=== PATIENT | male | born 1935 | race Caucasian/White ===

== ENCOUNTER 2017-01-02 15:18 | Inpatient (IN) | payer MEDICARE, OTHER ==
[~2017-01-02] VITALS: Ht 177.8 cm; Wt 88.1 kg
[2017-01-02] MEDS ORDERED: ONDANSETRON 4MG/2ML VIAL (J2405) IV ONE (15:45)
[2017-01-02] MEDS ORDERED: SENN8.6C PO (15:55)
[2017-01-02] MEDS ORDERED: ZOCO20TA PO (15:55)
[2017-01-02] MEDS ORDERED: ATEN25TA (15:55)
[2017-01-02] MEDS ORDERED: BISAC5TA PO ×2 (15:55→17:25)
[2017-01-02] MEDS ORDERED: SIMV20TA2 (15:55)
[2017-01-02] MEDS ORDERED: FURO40TA2 PO ×2 (15:55→17:25)
[2017-01-02] MEDS ORDERED: POTA20TA (15:55)
[2017-01-02] MEDS ORDERED: OMEP20CA3 (15:55)
[2017-01-02] MEDS ORDERED: BISA5TAB4 (15:55)
[2017-01-02] MEDS ORDERED: VITATAB11 PO ×2 (15:55→17:25)
[2017-01-02] MEDS ORDERED: ESCI10TA2 (15:55)
[2017-01-02] MEDS ORDERED: BENA10TA2 PO (15:55)
[2017-01-02] MEDS: MORPHINE 4 MG/ML 1ML SYRINGE IV PRN ×2 (16:09→19:12)
[2017-01-02 16:13] LABS: MEAN CORPUSCULAR HEMOGLOBIN 33.2 pg (27.0-33.0); MEAN CORPUSCULAR HGB CONC 33.5 g/dl (32.0-36.5); MEAN CORPUSCULAR VOLUME 99.1 fl (80.0-96.0); RED CELL DISTRIBUTION WIDTH 13.4 % (11.5-14.5); WHITE BLOOD COUNT 8.6 K/mm3 (4.0-10.0)
[2017-01-02 16:17] LABS: INR 1.25
[2017-01-02 16:38] LABS: ALBUMIN/GLOBULIN RATIO 0.88 (1.00-1.93); ALKALINE PHOSPHATASE 164 U/L (45-117); ALT/SGPT 25 U/L (12-78); ANION GAP 10 MEQ/L (8-16); AST/SGOT 37 U/L (15-37); BILIRUBIN,DIRECT 0.5 MG/DL (0.0-0.2); BILIRUBIN,TOTAL 1.1 MG/DL (0.2-1.0); BLOOD UREA NITROGEN 21 MG/DL (7-18); CALCIUM LEVEL 8.3 MG/DL (8.8-10.2); CARBON DIOXIDE LEVEL 28 MEQ/L (21-32); CHLORIDE LEVEL 104 MEQ/L (98-107); CREATININE FOR GFR 0.81 MG/DL (0.70-1.30); GLOMERULAR FILTRATION RATE > 60.0 (>35); GLUCOSE, FASTING 134 MG/DL (83-110); POTASSIUM SERUM 3.8 MEQ/L (3.5-5.1); SODIUM LEVEL 142 MEQ/L (136-145); TOTAL PROTEIN 6.4 GM/DL (6.4-8.2)
[2017-01-02] MEDS ORDERED: ISOVUE-370 76% 100ML VIAL (Q9967) As Ordered ONE (16:51)
--- NOTE | 2017-01-02 17:02 | REP ---
CHEST, ONE VIEW: REASON: Chest pain after fall. COMPARISON: 01/04/2015. The technique utilized in obtaining the radiograph has magnified the cardiac silhouette and accentuated the interstitial markings. A rib fracture can not be excluded particularly on the right due to multiple superimposed right mid and lower ribs. The lung batres are unchanged showing chronic fibrotic changes. The cardiomediastinal silhouette is unchanged. There is cardiomegaly and left atrial enlargement status quo. No acute patchy parenchymal opacities or pleural effusions seem to have developed on this limited supine AP chest. IMPRESSION: Exam limitations as described above. No evidence of acute cardiopulmonary disease. Right lower rib fracture assessment can not be made. Signed by José Rodney DO 01/03/2017 10:52 A
--- NOTE | 2017-01-02 17:04 | REP ---
RIGHT HIP AND PELVIS: REASON: Fall. AP pelvis and two view right hip. The bones are demineralized. There is a comminuted right superior ramus fracture and a comminuted right inferior ramus fracture. The right femur is not fractured. There are bilateral asymmetric hip joint degenerative changes. IMPRESSION: 1. Right superior and inferior pubic rami fractures which are comminuted. 2. Other findings of chronic changes as described above. TWO VIEWS RIGHT HIP: The previously described comminuted right superior and inferior pubic rami fracture is noted again. Chronic right hip joint changes again noted. No additional findings. Signed by José Rodney DO 01/03/2017 10:52 A
[2017-01-02] MEDS ORDERED: LEXA1TAB PO (17:25)
[2017-01-02] MEDS ORDERED: SENN8.6T10 PO (17:25)
[2017-01-02] MEDS ORDERED: OMEP20CA3 PO (17:25)
[2017-01-02] MEDS ORDERED: BIMA01SOL OU (17:25)
[2017-01-02] MEDS ORDERED: SIMV20TA2 PO (17:25)
[2017-01-02] MEDS ORDERED: REST0.05 OU (17:25)
[2017-01-02] MEDS ORDERED: ATEN25TA PO (17:25)
[2017-01-02] MEDS ORDERED: POTA20TA PO (17:25)
--- NOTE | 2017-01-02 17:35 | REP ---
CT of the pelvis for pelvic fracture: Axial images are acquired helical scanning in the reformatted sagittal coronal projections. This is performed without IV contrast. There are no comparison studies. There is marked demineralization. There is a comminuted fracture of the right ischium. There is no hip fracture on the right on the left. No sacral fracture. No fracture of the right and left iliac wings. There is grade II L5 spondylolisthesis. This is likely degenerative. There is no spondylolysis. There is L5 S1 degenerative disc disease. There is edema of the right internal, external obturator muscles. There is no free fluid in the pelvis. The bladder is unremarkable. Impression: Comminuted fracture of the right ischium. Profound demineralization. There is grade II L5 spondylolisthesis Signed by Ezekiel Wharton MD 01/02/2017 05:27 P
--- NOTE | 2017-01-02 18:46 | HPEPDOC ---
General Date of Admission Jan 02, 2017 at 17:29 Chief Complaint The patient is a 81-year-old male admitted with a reason for visit of Fall; Pelvic Fx. Source: Patient Exam Limitations: No limitations Timing/Duration: 4-6 hours Severity: Moderate History of Present Illness Mr Mathis is an 81-year-old male with past medical history of atrial fibrillation , malignant melanoma of the left forearm, aortic valve sclerosis, pulmonary hypertension, urinary retention, stroke 8 years prior who presents after he had a mechanical fall at his house this morning. The patient states that he was walking from his bathroom and reached to grab something off of a shelf and lost his balance and fell. The patient states that he fell onto his right hip. He denies associated chest pain, palpitations, shortness of breath, feelings of dizziness prior to the event. Patient states that he does not normally fall at home. Patient denies fever, chills or muscle aches recently. He states that he has been feeling well and just "" got careless this morning"". He denies changes in bowel or urinary habits to include pain with urination defecation or blood in urine or stool. Patient states that once he fell he was unable to get up due to right hip pain and instead" "scooted himself "" to the living room where he phoned his to come help him. The patient states that he does not have pain when laying down in bed currently but does feel pain if he tries to move in the bed. Home Medications Scheduled (Restasis) 0.05 % Emu, 1 DROP OU BID, (Reported) Atenolol (Atenolol) 25 Mg Tab, 12.5 MG PO DAILY, (Reported) B1/B2/B3/B5/B6 (Vitamin B Complex) 1 Tab Tab, 1 TAB PO DAILY, (Reported) Bimatoprost (Lumigan) 50 Drop/2.5 Ml Veronica, 1 DROP OU QHS, (Reported) Bisacodyl (Bisacodyl EC) 5 Mg Tab, 10 MG PO DAILY, (Reported) Escitalopram Oxalate (Lexapro) 10 Mg Tab, 10 MG PO DAILY, (Reported) Omeprazole (Omeprazole) 20 Mg Cap, 20 MG PO DAILY, (Reported) Potassium Chloride (Klor-Con M20) 20 Meq Tabcr, 40 MEQ PO DAILY, (Reported) Senna (Senna Lax) 8.6 Mg Tab, 2 TAB PO QHS, (Reported) Simvastatin (Simvastatin) 20 Mg Tab, 20 MG PO QHS, (Reported) Scheduled PRN Furosemide (Furosemide) 40 Mg Tab, 40 MG PO DAILY PRN for BP > 110, (Reported) Allergies Coded Allergies: No Known Allergies (Verified , 05/11/04) Past Medical History Medical History Atrial fibrillation Malignant melanoma left forearm Aortic valve sclerosis Mitral annular calcification Pulmonary hypertension Urinary retention History of stroke 8 years prior TIA 20 years prior Family History Mother had bladder cancer and father had stroke, many people in the family have heart disease Social History * Smoker: former Smoker (patient states that he quit smoking in the 1980s, prior to this he was smoking less than half a pack a day since his teenage years ) Alcohol: Denies Drugs: denies Psychosocial History: No pertinent psych hx retired, lives at home with his Review of Symptoms Constitutional: Denies: Chills, Fever Eyes: Denies: Pain, Vision change, Conjunctivae inflammation, Eyelid inflammation, Redness ENT: Denies: Head Aches Skin: Denies: Rash, Lesions Pulmonary: Denies: Dyspnea Cardiovascular: Denies: Chest Pain, Palpitations Gastrointestinal: Denies: Nausea, Vomiting, Abdominal Pain, Diarrhea, Constipation Hematologic: Denies: Bruising Musculoskeletal: Reports: Other Symptoms (patient states that he has right hip/ upper leg and posterior knee pain) Neurological: Denies: Weakness Psych: Reports: Mood Normal Physical Examination General Exam: Positive: Alert, Cooperative, Mild Distress Eye Exam: Positive: Conjunctiva & lids normal, EOMI, Negative: Sclera icteric, Ptosis ENT Exam: Positive: Atraumatic, Mucous membr. moist/pink, Nares Patent Neck Exam: Positive: Supple Chest Exam: Positive: Clear to auscultation, Normal air movement, Negative: Rales, Rhonchi, Wheezing Heart Exam: Positive: Rate Normal, Normal S1, Normal S2, Murmurs, Negative: Tachycardic, Bradycardic, Gallops Abdomen Exam: Positive: Normal bowel sounds, Soft, Negative: BS Hyperactive, BS Hypoactive, Tenderness, Hepatospenomegaly Extremity Exam: Positive: Edema (chronic pitting b/l LE edema, pt states it is unchanged ), Negative: Clubbing, Cyanosis Skin Exam: Positive: Nl turgor and temperature Vital Signs Vital Signs Date Time Temp Pulse Resp B/P (MAP) Pulse Ox O2 Delivery O2 Flow Rate FiO2 01/02/17 17:38 114 18 113/73 (86) 94 Room Air 01/02/17 15:34 99.4 Laboratory Data Labs 24H Laboratory Tests 2 01/02/17 15:59: Prothrombin Time 15.8H, Prothromb Time International Ratio 1.25, Anion Gap 10, Glomerular Filtration Rate > 60.0, Calcium Level 8.3L, Aspartate Amino Transf ( AST/SGOT) 37, Alanine Aminotransferase (ALT/SGPT) 25, Alkaline Phosphatase 164H , Total Bilirubin 1.1H, Direct Bilirubin 0.5H, Total Protein 6.4, Albumin 3.0L, Albumin/Globulin Ratio 0.88L CBC/BMP Laboratory Tests 01/02/17 15:59 Red Blood Count 3.71 L, Mean Corpuscular Volume 99.1 H, Mean Corpuscular Hemoglobin 33.2 H, Mean Corpuscular Hemoglobin Concent 33.5, Red Cell Distribution Width 13.4 Problems (1) Pelvic fracture Status: Acute Response to Treatment: Stable Problem Text: Pelvic CT done in emergency department demonstrated commuted fracture of the right ischium, profound demineralization, and grade 2 L5 spondylolisthesis. Will control patient's pain Will consult orthopedic surgery to see the patient in the morning will require cardiac clearance if sx is decided upon (2) Hypertension Status: Chronic Response to Treatment: Stable Problem Text: 145/69 Continue to monitor and continue home medications w/ hold parameters (3) Anemia Status: Chronic Response to Treatment: Stable Problem Text: 12.3 and 36.7 on presentation will continue to monitor (4) GERD (gastroesophageal reflux disease) Status: Chronic Response to Treatment: Stable Problem Text: continue home medications (5) Constipation Status: Chronic Response to Treatment: Stable Problem Text: continue home medications (6) Dyslipidemia Status: Chronic Response to Treatment: Stable Problem Text: continue home medications (7) Depression Status: Chronic Response to Treatment: Stable Problem Text: continue home medications (8) DVT prophylaxis Status: Acute Response to Treatment: Stable Problem Text: SCD TEDS Plan / VTE VTE Prophylaxis Ordered?: Yes GME ATTESTATION GME ATTESTATION My preceptor for this patient encounter was physically present in the building during the encounter and was fully available. As needed, all aspects of the patient interview, examination, medical decision making process, and medical care plan development were reviewed and approved by the preceptor. Preceptor is aware and concurs with the plan as stated in the body of this note and will attest to such by his/her cosignature. RINA ARRIAGA DO Jan 02, 2017 18:46
[2017-01-02 19:00] VITALS: BP 128/86
[2017-01-02] MEDS: NS 1,000 ML IV SCH (19:11)
[2017-01-02] MEDS: SIMVASTATIN 20 MG TAB PO SCH (20:38)
[2017-01-02] MEDS: SENNA 8.6 MG TAB (SENOKOT) PO SCH (20:41)
[2017-01-02 22:00] VITALS: BP 106/70
[2017-01-03] MEDS: NS 1,000 ML IV SCH ×3 (01:10→19:51)
[2017-01-03 06:00] VITALS: BP 98/60
[2017-01-03 07:00] LABS: BASO # 0.1 K/mm3 (0.0-0.2); BASO % 1.2 % (0.0-1.0); EOS # 0.1 K/mm3 (0.0-0.50); EOS % 2.2 % (0.0-3.0); LARGE UNSTAINED CELL # 0.1 K/mm3 (0.0-0.4); LARGE UNSTAINED CELL % 1.6 % (0.0-4.0); LYMPH # 0.8 K/mm3 (1.5-4.5); LYMPH % 12.6 % (24.0-44.0); MEAN CORPUSCULAR HEMOGLOBIN 32.7 pg (27.0-33.0); MEAN CORPUSCULAR HGB CONC 33.4 g/dl (32.0-36.5); MONO # 0.5 K/mm3 (0.0-0.8); NEUTROPHILS # 4.2 K/mm3 (1.8-7.7); NEUTROPHILS % 74.5 % (36.0-66.0); PLATELET COUNT, AUTOMATED 130 k/mm3 (150-450); RED CELL DISTRIBUTION WIDTH 13.4 % (11.5-14.5); WHITE BLOOD COUNT 5.7 K/mm3 (4.0-10.0)
[2017-01-03 07:24] LABS: ANION GAP 9 MEQ/L (8-16); BLOOD UREA NITROGEN 24 MG/DL (7-18); CALCIUM LEVEL 8.2 MG/DL (8.8-10.2); CARBON DIOXIDE LEVEL 27 MEQ/L (21-32); CHLORIDE LEVEL 107 MEQ/L (98-107); CREATININE FOR GFR 0.74 MG/DL (0.70-1.30); GLOMERULAR FILTRATION RATE > 60.0 (>35); GLUCOSE, FASTING 97 MG/DL (83-110); POTASSIUM SERUM 4.2 MEQ/L (3.5-5.1); SODIUM LEVEL 143 MEQ/L (136-145)
[2017-01-03] MEDS: BISACODYL 5 MG TAB PO SCH (09:00)
[2017-01-03] MEDS: OMEPRAZOLE 20 MG CAP PO SCH (09:57)
[2017-01-03] MEDS: ATENOLOL 25 MG TAB PO SCH (09:57)
[2017-01-03] MEDS: ESCITALOPRAM OXALATE 10 MG TAB (LEXAPRO) PO SCH (09:57)
[2017-01-03] MEDS: FUROSEMIDE 40 MG TAB PO SCH (09:58)
[2017-01-03] MEDS: PERCOCET 5MG/325MG TAB PO PRN ×2 (09:59→18:07)
--- NOTE | 2017-01-03 10:47 | CR ---
DATE OF CONSULTATION: 01/03/2017 CHIEF COMPLAINT: Right pelvic pain. HISTORY OF PRESENT ILLNESS: Mr. Mathis is an 81-year-old gentleman admitted yesterday. He has a history of atrial fibrillation, malignant melanoma on his forearm, aortic valve sclerosis and pulmonary hypertension, urinary retention and other issues, previous history of stroke. He was standing, he was not paying attention, did not have lightheadedness or loss of conscious, but slipped and fell and landed on his right buttocks. He was unable to ambulate after that. The injury happened at home. He previously has lived with his independently and he was brought to the emergency room (ER) for further evaluation after his helped him. At rest, he does not have much pain but any movement produces pain and trying to walk produces pain. HOME MEDICATIONS: Include: Restasis, atenolol, Lumigan, bisacodyl, Lexapro, omeprazole, potassium, Senna, simvastatin, and Lasix. PAST MEDICAL HISTORY: Includes: 1. Atrial fibrillation. 2. Melanoma. 3. Aortic valve sclerosis. 4. Mitral annular calcification. 5. Pulmonary hypertension. 6. Urinary retention. 7. Chronic peripheral edema. 8. Cerebrovascular injury. 9. Transient ischemic attacks. FAMILY HISTORY: Not contributory. SOCIAL HISTORY: Does not currently smoke but quit in the 1980s. Does not drink or smoke. He is not complaining of depression. REVIEW OF SYSTEMS: He is not complaining of headache, nauseousness, shortness of breath, abdominal pain. No new numbness or tingling. He does not report any significant change in the swelling today. He is not complaining of stomach issues or bleeding issues or psychological issues. IMAGING STUDIES: I reviewed plain films which reveal a superior and inferior pubic ramus fracture on the right side. No hip fracture. I reviewed a CT scan of the abdomen and pelvis and that reveals comminuted superior and inferior pubic ramus/ischial fractures which are significantly comminuted and also reveals a fracture which is nondisplaced of the sacrum on the right side. In this respect, I disagree with the radiologist's interpretation. There is clearly a right sacral fracture. CLINICAL EXAMINATION: He is alert, oriented, and cooperative. Mood and affect appropriate. He seems to be comfortable in bed. He appreciates light touch peripherally and he has at least moderate to severe edema on the right foot and more moderate edema on the left foot. Calves are soft. Extremities appear to be sensate. IMPRESSION: Superior and inferior pubic ramus fractures on the right, sacral fracture on the right, other comorbidities in an 81-year-old gentleman. RECOMMENDATIONS: I met with the gentleman and his family and we spent approximately 20 minutes together, greater than 50% of which was [id number] time. I do not recommend a surgical intervention for his issue. However, because he has fractures of the anterior pelvis as well as a nondisplaced sacral fracture, in my opinion, it is likely that his rehabilitation progress will be slow/relatively prolonged. I would anticipate a healing period over a period of 10-12 weeks in somebody his vintage with his medical comorbidities. He may be mobilized by physical therapy but our goals should be limited, such as bed to chair and bed to bathroom. I think he is going to have significant pain which may improve over the next couple of weeks as he begins to heal and again, we do not expect rapid progress in my opinion. This was explained to the patient as well as his who agree with our recommendations and plan. This patient could followup with me in the office within the next couple of weeks if he is discharge. Additional considerations would be for subacute rehabilitation if the patient is not able to be made safe for independent living. For further details, please refer to the medical record.
[2017-01-03 13:21] VITALS: O2SAT 86; O2SAT 91
[2017-01-03 14:00] VITALS: BP 101/59
--- NOTE | 2017-01-03 14:22 | IPN ---
DATE: 01/03/2017 81-year-old gentleman seen at the bedside, resting comfortably. Pleasant to talk to. No chest pain, shortness of breath, abdominal pain. He feels that his hip pain appears to be adequately controlled. OBJECTIVE: Temperature is 98.4, pulse 100, respiratory rate is 16, blood pressure 128/60, SpO2 is 93% on 2 liters. GENERAL: The patient appears to be in no acute distress. Alert and oriented. HEENT: Unremarkable. LUNGS: Clear. HEART: Regular rate and rhythm. ABDOMEN: Soft. EXTREMITIES: No edema. No calf tenderness. LABORATORY DATA: White count 5.7, hemoglobin 11.5, platelets are 130,000. Sodium is 143, potassium 4.2, chloride 107, bicarb 27, anion gap 9, BUN 24, creatinine 0.74, glucose is 97. ASSESSMENT/PLAN: 1. Acute pelvic fracture involving the right ischium. He will need some ongoing physical therapy and perhaps subacute rehab. Will continue with pain medications as needed. 2. Hypertension. Stable. 3. Anemia of chronic disease. Will continue to follow his hemoglobin and hematocrit. 4. Gastroesophageal reflux disease (GERD). Stable. 5. Chronic constipation. Will make sure that he has a bowel regimen in place. 6. Hyperlipidemia. Continue Lexapro. 7. History of atrial fibrillation. He is rate controlled. 8. History of pulmonary hypertension. Continue on Lasix. 9. Prior history of stroke and transient ischemic attack (TIA). No ongoing deficits. DISPOSITION: I am concerned that the patient may have some unstable gait issues. His fall resulted from a mechanical fall. He denies any syncope or having any blackout spells. At any rate, I would like for physical therapy and occupational therapy to continue to follow him and patient and family services (PFS) is involved with possible subacute rehab.
[2017-01-03] MEDS: SIMVASTATIN 20 MG TAB PO SCH (19:50)
[2017-01-03] MEDS: SENNA 8.6 MG TAB (SENOKOT) PO SCH (19:50)
[2017-01-03 22:00] VITALS: BP 119/70
[2017-01-04 06:00] VITALS: BP 106/65
[2017-01-04] MEDS: HEPARIN SOD (PORCINE) 5000 UNITS/ML VIAL SQ SCH ×3 (06:00→21:20)
[2017-01-04 07:21] LABS: BASO # 0.1 K/mm3 (0.0-0.2); BASO % 0.5 % (0.0-1.0); EOS # 0.1 K/mm3 (0.0-0.50); LARGE UNSTAINED CELL # 0.2 K/mm3 (0.0-0.4); LARGE UNSTAINED CELL % 1.5 % (0.0-4.0); LYMPH # 0.9 K/mm3 (1.5-4.5); LYMPH % 7.2 % (24.0-44.0); MEAN CORPUSCULAR HEMOGLOBIN 33.9 pg (27.0-33.0); MEAN CORPUSCULAR HGB CONC 33.9 g/dl (32.0-36.5); MONO # 0.8 K/mm3 (0.0-0.8); MONO % 6.1 % (0.0-5.0); NEUTROPHILS # 10.5 K/mm3 (1.8-7.7); NEUTROPHILS % 83.6 % (36.0-66.0); PLATELET COUNT, AUTOMATED 118 k/mm3 (150-450); RED CELL DISTRIBUTION WIDTH 13.6 % (11.5-14.5); WHITE BLOOD COUNT 12.5 K/mm3 (4.0-10.0)
[2017-01-04 07:33] LABS: ANION GAP 8 MEQ/L (8-16); BLOOD UREA NITROGEN 34 MG/DL (7-18); CALCIUM LEVEL 8.1 MG/DL (8.8-10.2); CARBON DIOXIDE LEVEL 26 MEQ/L (21-32); CHLORIDE LEVEL 108 MEQ/L (98-107); CREATININE FOR GFR 1.04 MG/DL (0.70-1.30); GLOMERULAR FILTRATION RATE > 60.0 (>35); GLUCOSE, FASTING 103 MG/DL (83-110); POTASSIUM SERUM 4.3 MEQ/L (3.5-5.1); SODIUM LEVEL 142 MEQ/L (136-145)
--- NOTE | 2017-01-04 08:42 | IPN ---
DATE: 01/04/2017 This is an 81-year-old gentleman seen at bedside. He is resting comfortably. However, he does have quite a bit of pain when he tries to move in the bed with his right hip pain. He denies shortness of breath, productive sputum, cough or hemoptysis. No difficulty with his meals. Bowel movements are regular. OBJECTIVE: Temperature is 98.8, pulse 63, respiratory rate 11, blood pressure 106/65, SPO2 is 97% on two liters. GENERAL: The patient appears to be in no acute distress, alert, oriented, pleasant. HEENT: Unremarkable. LUNGS: Clear. HEART: Regular rate and rhythm. ABDOMEN: Soft. EXTREMITIES: No edema. No calf tenderness. No motor or sensory deficits distally. LABORATORY DATA: White count is 12.5, hemoglobin 10.9, platelets are 118,000. Sodium 142, potassium 4.3, chloride 108, bicarbonate 26, anion gap 8, BUN 34, creatinine 1.04, glucose 103. ASSESSMENT AND PLAN: 1. Acute pelvic fracture involving the ischium. Appreciate orthopedics' input. We will continue with physical therapy. He is likely going to need subacute rehabilitation and possible placement. Continue with pain medications as outlined previously. 2. Hypertension, stable. We will continue to follow. 3. Anemia of chronic disease. This appears to be stable. There is slight drop in his hemoglobin and hematocrit today. This is possibly hemodilution. We will go ahead and discontinue his IV fluids that have been running since admission. 4. Gastroesophageal reflux disease (GERD), stable. 5. Chronic constipation. Continue with bowel regimen. 6. Hyperlipidemia. Continue Lipitor. 7. History of atrial fibrillation. This appears to be paroxysmal. He is rate controlled and apparently, he is not anticoagulated. I will defer this to his primary care provider, Dr. Mann. 8. Depression. Continue on Lexapro. 9. History of pulmonary hypertension. Continue on Lasix. 10. Prior history of stroke, transient ischemic attacks. No deficits. 11. Deep vein thrombosis (DVT) prophylaxis. We started him on subcutaneous heparin.
[2017-01-04 08:45] VITALS: BP 141/72
[2017-01-04] MEDS: OMEPRAZOLE 20 MG CAP PO SCH (08:51)
[2017-01-04] MEDS: ESCITALOPRAM OXALATE 10 MG TAB (LEXAPRO) PO SCH (08:51)
[2017-01-04] MEDS: BISACODYL 5 MG TAB PO SCH (08:51)
[2017-01-04] MEDS: ATENOLOL 25 MG TAB PO SCH (08:52)
[2017-01-04] MEDS: FUROSEMIDE 40 MG TAB PO SCH (08:53)
[2017-01-04] MEDS: PERCOCET 5MG/325MG TAB PO PRN ×2 (12:57→18:41)
[2017-01-04 14:00] VITALS: BP 102/57
[2017-01-04] MEDS: SIMVASTATIN 20 MG TAB PO SCH (21:20)
[2017-01-04] MEDS: SENNA 8.6 MG TAB (SENOKOT) PO SCH (21:20)
[2017-01-04 22:00] VITALS: BP 119/58
[2017-01-05 06:00] VITALS: BP 109/59
[2017-01-05] MEDS: HEPARIN SOD (PORCINE) 5000 UNITS/ML VIAL SQ SCH ×3 (06:00→21:30)
[2017-01-05 06:41] LABS: BASO # 0.1 K/mm3 (0.0-0.2); BASO % 0.8 % (0.0-1.0); EOS # 0.4 K/mm3 (0.0-0.50); EOS % 4.4 % (0.0-3.0); LARGE UNSTAINED CELL # 0.2 K/mm3 (0.0-0.4); LARGE UNSTAINED CELL % 2.9 % (0.0-4.0); LYMPH # 0.9 K/mm3 (1.5-4.5); LYMPH % 11.3 % (24.0-44.0); MEAN CORPUSCULAR HEMOGLOBIN 33.2 pg (27.0-33.0); MEAN CORPUSCULAR HGB CONC 33.6 g/dl (32.0-36.5); MONO # 0.8 K/mm3 (0.0-0.8); MONO % 10.2 % (0.0-5.0); NEUTROPHILS # 5.7 K/mm3 (1.8-7.7); NEUTROPHILS % 70.5 % (36.0-66.0); PLATELET COUNT, AUTOMATED 122 k/mm3 (150-450); RED CELL DISTRIBUTION WIDTH 13.6 % (11.5-14.5); WHITE BLOOD COUNT 8.2 K/mm3 (4.0-10.0)
[2017-01-05 06:48] LABS: ANION GAP 6 MEQ/L (8-16); BLOOD UREA NITROGEN 45 MG/DL (7-18); CALCIUM LEVEL 8.4 MG/DL (8.8-10.2); CARBON DIOXIDE LEVEL 27 MEQ/L (21-32); CHLORIDE LEVEL 107 MEQ/L (98-107); CREATININE FOR GFR 0.71 MG/DL (0.70-1.30); GLOMERULAR FILTRATION RATE > 60.0 (>35); GLUCOSE, FASTING 102 MG/DL (83-110); SODIUM LEVEL 140 MEQ/L (136-145)
[2017-01-05] MEDS ORDERED: FLEET ENEMA PR PRN (07:30)
[2017-01-05] MEDS ORDERED: MOM 30ML SUSPENSION UDC PO PRN (07:30)
[2017-01-05 09:30] VITALS: BP 118/72
[2017-01-05] MEDS: OMEPRAZOLE 20 MG CAP PO SCH (11:01)
[2017-01-05] MEDS: ESCITALOPRAM OXALATE 10 MG TAB (LEXAPRO) PO SCH (11:01)
[2017-01-05] MEDS: FUROSEMIDE 40 MG TAB PO SCH (11:01)
[2017-01-05] MEDS: BISACODYL 5 MG TAB PO SCH (11:01)
[2017-01-05] MEDS: MIRALAX *UNIT DOSE* 17GM PACKET PO SCH (11:01)
[2017-01-05] MEDS: ATENOLOL 25 MG TAB PO SCH (11:01)
[2017-01-05] MEDS: PERCOCET 5MG/325MG TAB PO PRN (12:00)
[2017-01-05 14:00] VITALS: BP 104/67
--- NOTE | 2017-01-05 15:06 | IPN ---
DATE: 01/05/2017 81-year-old gentleman seen at bedside resting comfortably. States he does have quite a bit of hip and right buttock pain when he tries to move. He is trying to continue to participate with physical therapy, but feels that his progresses is toby slow currently. He denies chest pain, nausea or vomiting. He is tolerating meals. No abdominal pain. Bowel movements regular. No difficulty with voiding. OBJECTIVE: Temperature 99.8, pulse 103, respiratory rate is 20, blood pressure (BP) 109/59, SPO2 is 92% on 2 liters. General: The patient appears to be in no acute distress. He is alert and oriented, pleasant. I did notice he has not had a bowel movement for the last few days. We will adjust his bowel regimen. HEENT: Unremarkable. Lungs: Clear. Heart: Regular rate and rhythm. Abdomen: Soft. Extremities: No edema. No calf tenderness. LABORATORY DATA: White count is 8.2, hemoglobin 10.6, platelets are 122,000. Sodium 140, potassium 4.0, chloride 107, bicarb 27, anion gap 6, BUN is 45, creatinine 0.71, glucose 102. ASSESSMENT/PLAN: 1. Acute pelvic fracture involving the right ischium. Appreciate orthopedic's input. He continues to try to participate with physical therapy. Continue pain medication. Will adjust his bowel regimen as well. He is likely to need subacute rehabilitation and possible placement. The goal will be to make him fdc level today and Patient and Family Services (PFS) is back on Saturday and will further try to delineate placement issues. 2. Constipation. Will adjust his bowel regimen. 3. Hypertension, stable. Will continue to follow with hold parameters on his atenolol. 4. Tachycardia with history of atrial fibrillation. Appears to be paroxysmal in nature. He is barely rapid ventricular response. I am not going to make any further adjustments in his atenolol since his blood pressure has been nominal and his heart rate at rest does typically dip down to the 70s. Will continue to follow while he is here. He is not currently on any anticoagulation therapy. I do wonder if he is a fall risk and that is the reason why Dr. Mann does not place him on this. Will defer this to Dr. Mann at followup. 5. Depression. Continue on Lexapro. 6. History of pulmonary hypertension. Continue Lasix. 7. Prior history of stroke and transient ischemic attacks (TIAs). No current deficits. 8. Gastroesophageal reflux disease (GERD), stable. 9. Deep vein thrombosis (DVT) prophylaxis, on subcutaneous heparin. DISPOSITION: As outlined above. The patient will be made fdc today. PFS is on board as well as physical therapy (PT). There is a high likeliness he will need to be placed for subacute rehabilitation.
[2017-01-05] MEDS: SENNA 8.6 MG TAB (SENOKOT) PO SCH (21:27)
[2017-01-05] MEDS: SIMVASTATIN 20 MG TAB PO SCH (21:27)
[2017-01-05 22:00] VITALS: BP 116/67
[2017-01-06] MEDS: HEPARIN SOD (PORCINE) 5000 UNITS/ML VIAL SQ SCH ×3 (05:47→22:00)
[2017-01-06 06:00] VITALS: BP 104/63
[2017-01-06] MEDS: MIRALAX *UNIT DOSE* 17GM PACKET PO SCH (09:30)
[2017-01-06] MEDS: BISACODYL 5 MG TAB PO SCH (09:31)
[2017-01-06] MEDS: ESCITALOPRAM OXALATE 10 MG TAB (LEXAPRO) PO SCH (09:31)
[2017-01-06] MEDS: OMEPRAZOLE 20 MG CAP PO SCH (09:31)
[2017-01-06] MEDS: FUROSEMIDE 40 MG TAB PO SCH (09:32)
[2017-01-06] MEDS: ATENOLOL 25 MG TAB PO SCH (09:32)
[2017-01-06 12:23] VITALS: O2SAT 94
[2017-01-06 14:00] VITALS: BP 118/64
[2017-01-06 18:53] VITALS: O2SAT 94
[2017-01-06 21:55] VITALS: O2SAT 92
[2017-01-06 22:00] VITALS: BP 141/87
[2017-01-06] MEDS: SIMVASTATIN 20 MG TAB PO SCH (22:35)
[2017-01-06] MEDS: SENNA 8.6 MG TAB (SENOKOT) PO SCH (22:35)
[2017-01-06] MEDS: PERCOCET 5MG/325MG TAB PO PRN (22:40)
[2017-01-07 06:00] VITALS: BP 151/92
[2017-01-07] MEDS: HEPARIN SOD (PORCINE) 5000 UNITS/ML VIAL SQ SCH ×3 (06:46→20:35)
[2017-01-07 07:19] LABS: MEAN CORPUSCULAR HEMOGLOBIN 32.6 pg (27.0-33.0); MEAN CORPUSCULAR HGB CONC 33.2 g/dl (32.0-36.5); MEAN CORPUSCULAR VOLUME 98.2 fl (80.0-96.0); RED CELL DISTRIBUTION WIDTH 13.9 % (11.5-14.5); WHITE BLOOD COUNT 6.4 K/mm3 (4.0-10.0)
[2017-01-07 07:45] LABS: ANION GAP 4 MEQ/L (8-16); BLOOD UREA NITROGEN 36 MG/DL (7-18); CALCIUM LEVEL 7.9 MG/DL (8.8-10.2); CARBON DIOXIDE LEVEL 31 MEQ/L (21-32); CHLORIDE LEVEL 108 MEQ/L (98-107); CREATININE FOR GFR 0.53 MG/DL (0.70-1.30); GLOMERULAR FILTRATION RATE > 60.0 (>35); GLUCOSE, FASTING 103 MG/DL (83-110); POTASSIUM SERUM 3.9 MEQ/L (3.5-5.1); SODIUM LEVEL 143 MEQ/L (136-145)
[2017-01-07] MEDS: MIRALAX *UNIT DOSE* 17GM PACKET PO SCH (09:00)
[2017-01-07] MEDS: ESCITALOPRAM OXALATE 10 MG TAB (LEXAPRO) PO SCH (10:24)
[2017-01-07] MEDS: PERCOCET 5MG/325MG TAB PO PRN ×2 (10:24→20:37)
[2017-01-07] MEDS: FUROSEMIDE 40 MG TAB PO SCH (10:24)
[2017-01-07] MEDS: OMEPRAZOLE 20 MG CAP PO SCH (10:24)
[2017-01-07] MEDS: BISACODYL 5 MG TAB PO SCH (10:25)
[2017-01-07] MEDS: ATENOLOL 25 MG TAB PO SCH (10:25)
[2017-01-07 14:00] VITALS: BP 123/76
[2017-01-07] MEDS: SENNA 8.6 MG TAB (SENOKOT) PO SCH (20:35)
[2017-01-07] MEDS: SIMVASTATIN 20 MG TAB PO SCH (20:35)
[2017-01-07 22:00] VITALS: BP 131/70
[2017-01-08] MEDS: HEPARIN SOD (PORCINE) 5000 UNITS/ML VIAL SQ SCH ×3 (05:20→20:07)
[2017-01-08 06:00] VITALS: BP 110/71
[2017-01-08 08:51] VITALS: BP 108/63
[2017-01-08 09:45] VITALS: BP 138/75
[2017-01-08] MEDS: MIRALAX *UNIT DOSE* 17GM PACKET PO SCH (10:02)
[2017-01-08] MEDS: BISACODYL 5 MG TAB PO SCH (10:03)
[2017-01-08] MEDS: FUROSEMIDE 40 MG TAB PO SCH (10:03)
[2017-01-08] MEDS: ESCITALOPRAM OXALATE 10 MG TAB (LEXAPRO) PO SCH (10:04)
[2017-01-08] MEDS: ATENOLOL 25 MG TAB PO SCH (10:07)
[2017-01-08] MEDS: OMEPRAZOLE 20 MG CAP PO SCH (10:07)
[2017-01-08] MEDS ORDERED: ACETAMINOPHEN TAB 650MG DOSE (2X325MG) PO PRN (11:00)
[2017-01-08 13:47] LABS: ABG BASE EXCESS 4.2 (-2.0-2.0); ABG HCO3 27.9 MEQ/L (22.0-26.0); ABG PARTIAL PRESSURE CO2 38.5 mmHg (35.0-45.0); ABG PARTIAL PRESSURE O2 78.7 mmHg (75.0-100.0); ABG STANDARD HCO3 28.2 MEQ/L (22.0-26.0); ABG TOTAL CO2 29.1 MEQ/L (23.0-31.0); ABG pH (ARTERIAL) 7.478 UNITS (7.350-7.450)
[2017-01-08 14:30] VITALS: BP 95/58
[2017-01-08] MEDS ORDERED: NS 500 ML IV ONE (15:30)
[2017-01-08 16:30] VITALS: BP 95/60
--- NOTE | 2017-01-08 17:04 | REP ---
CT CHEST WITHOUT CONTRAST: REASON: Pyrexia and dyspnea. COMPARISON EXAMINATION: 06/07/2015 and 01/07/2015. The lack of intravenous contrast decreased the sensitivity of the exam. The mediastinum and pulmonary bhaskar have not changed significantly. There is global cardiomegaly and evidence of pulmonary arterial enlargement consistent with cor pulmonale/pulmonary hypertension. There are no pleural or pericardial effusions. The imaged upper abdomen again shows a micronodular service to the liver and an atopic gallbladder. 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 Evaluation of the osseous structures shows a healing 7th rib fracture on the right anteriorly and representing a change from prior exam. Evaluation of the lung batres again shows marked right hemithoracic volume loss with marked elevation of the marked diaphragmatic surface of the right lung status quo. Evaluation of the lung batres shows scattered asystemic densities and patchy opacities particularly in the right lower lobe with air bronchograms. The air bronchograms have improved from the prior exam as has the large right lower lobe patch opacity although there is an increased opacity with air bronchograms in the posterobasal segment of the right lower lobe compared to the prior exam. Scattered nodular densities are seen throughout the lung batres status quo. IMPRESSION: 1. New patchy right lobe opacity in the posterior basal segment with air bronchograms suggesting acute infectious etiology. Certainly, a neoplastic process can not be excluded. 2. Chronic lung batres changes as described above. 3. Other chronic changes as described above. 4. Healing right 7th rib fracture, correlated clinically. Signed by José Rodney DO 01/08/2017 05:19 P
[2017-01-08] MEDS: MEROPENEM INJ 1 GM in D5W MINI-BAG PLUS 100 ML IV SCH (18:06)
[2017-01-08] MEDS: PERCOCET 5MG/325MG TAB PO PRN (20:02)
[2017-01-08] MEDS: SENNA 8.6 MG TAB (SENOKOT) PO SCH (20:02)
[2017-01-08] MEDS: SIMVASTATIN 20 MG TAB PO SCH (20:02)
[2017-01-08 22:00] VITALS: BP 94/52
[2017-01-09] MEDS: MEROPENEM INJ 1 GM in D5W MINI-BAG PLUS 100 ML IV SCH ×3 (02:22→18:46)
[2017-01-09] MEDS: HEPARIN SOD (PORCINE) 5000 UNITS/ML VIAL SQ SCH ×3 (05:48→20:31)
[2017-01-09 06:00] VITALS: BP 122/70
[2017-01-09 07:05] LABS: BASO # 0.1 K/mm3 (0.0-0.2); BASO % 0.6 % (0.0-1.0); EOS # 0.5 K/mm3 (0.0-0.50); EOS % 4.5 % (0.0-3.0); LARGE UNSTAINED CELL # 0.2 K/mm3 (0.0-0.4); LARGE UNSTAINED CELL % 1.7 % (0.0-4.0); LYMPH # 1.2 K/mm3 (1.5-4.5); LYMPH % 10.1 % (24.0-44.0); MEAN CORPUSCULAR HEMOGLOBIN 33.5 pg (27.0-33.0); MEAN CORPUSCULAR HGB CONC 33.5 g/dl (32.0-36.5); MEAN CORPUSCULAR VOLUME 100.2 fl (80.0-96.0); MONO # 0.7 K/mm3 (0.0-0.8); MONO % 6.7 % (0.0-5.0); NEUTROPHILS % 76.5 % (36.0-66.0); PLATELET COUNT, AUTOMATED 155 k/mm3 (150-450); RED CELL DISTRIBUTION WIDTH 14.3 % (11.5-14.5); WHITE BLOOD COUNT 10.4 K/mm3 (4.0-10.0)
[2017-01-09 07:24] LABS: ANION GAP 7 MEQ/L (8-16); BLOOD UREA NITROGEN 36 MG/DL (7-18); CARBON DIOXIDE LEVEL 31 MEQ/L (21-32); CHLORIDE LEVEL 108 MEQ/L (98-107); CREATININE FOR GFR 0.65 MG/DL (0.70-1.30); GLOMERULAR FILTRATION RATE > 60.0 (>35); GLUCOSE, FASTING 93 MG/DL (83-110); POTASSIUM SERUM 3.8 MEQ/L (3.5-5.1); SODIUM LEVEL 146 MEQ/L (136-145)
--- NOTE | 2017-01-09 07:28 | IPNPDOC ---
Subjective Date Seen The patient was seen on 01/09/17. Subjective Chief Complaint/HPI The patient is a 81-year-old male admitted with a reason for visit of Fall; Pelvic Fx. General: Denies: ROS Unobtainable, Chills, Night Sweats, Fatigue, Malaise, Normal Appetite, Other Symptoms Constitutional: Denies: Chills, Fever, Malaise, Night Sweats, Weakness, Fatigue , Weight Loss, Lethargy, Other Eyes: Denies: Pain, Vision change, Conjunctivae inflammation, Eyelid inflammation, Redness, Other ENT: Denies: Head Aches, Ear Pain, Dysphagia, Sinus Congestion, Post Nasal Drip , Sore Throat, Epistaxis, Other Symptoms Skin: Denies: Rash, Lesions, Jaundice, Bruising, Itching, Dry, Breakdown, Nail Changes, Other Pulmonary: Denies: Dyspnea, Cough, Pleuritic Chest Pain, Other Symptoms Cardiovascular: Denies: Chest Pain, Palpitations, Orthopnea, Paroxysmal Noc. Dyspnea, Edema, Lt Headedness, Other Symptoms Gastrointestinal: Denies: Nausea, Vomiting, Abdominal Pain, Diarrhea, Constipation, Melena, Hematochezia, Other Symptoms Genitourinary: Denies: Dysuria, Frequency, Incontinence, Hematuria, Retention, Other Symptoms Objective Physical Examination General Exam: Positive: Alert, Cooperative, No Acute Distress Eye Exam: Positive: PERRLA, Conjunctiva & lids normal, EOMI, Negative: Sclera icteric ENT Exam: Positive: Atraumatic, Mucous membr. moist/pink Neck Exam: Positive: Supple Chest Exam: Positive: Rhonchi, Diminished, Negative: Rales, Wheezing Heart Exam: Positive: Rate Normal, Normal S1, Normal S2, Murmurs, Negative: Tachycardic, Bradycardic, Gallops Abdomen Exam: Positive: Normal bowel sounds, Soft, Negative: BS Hyperactive, BS Hypoactive, Tenderness Psych Exam: Positive: Oriented x 3 Assessment /Plan Problems (1) Hospital acquired PNA Status: Acute Response to Treatment: Improving Discussed With: Patient Problem Specific Plan: Monitor Clinically, Repeat Labs, Repeat Tests Problem Text: IV meropenem sputum cultures pending mrsa screen pending supplemental o2 incentive spirometry/acapella (2) Pelvic fracture Status: Acute Response to Treatment: Stable Discussed With: Patient Problem Specific Plan: Consult Specialist Problem Text: right superior and inferior pubic ramus fracture, right sacral fracture ortho c/s appreciated - no surgical intervention - rehab plan is for d/c to rehab when medically stable (3) Hypertension Status: Chronic Response to Treatment: Stable Discussed With: Patient Problem Specific Plan: Monitor Clinically Problem Text: Continue to monitor and continue home medications w/ hold parameters atenolol (4) Anemia Status: Chronic Response to Treatment: Stable Discussed With: Patient Problem Specific Plan: Monitor Clinically, Repeat Labs Problem Text: will continue to monitor (5) GERD (gastroesophageal reflux disease) Status: Chronic Response to Treatment: Stable Discussed With: Patient Problem Text: continue home medications (6) Constipation Status: Chronic Response to Treatment: Stable Problem Specific Plan: Monitor Clinically Problem Text: continue home medications (7) Dyslipidemia Status: Chronic Response to Treatment: Stable Discussed With: Patient Problem Text: continue home medications (8) Depression Status: Chronic Response to Treatment: Stable Problem Text: continue lexapro (9) Paroxysmal a-fib Status: Chronic Discussed With: Patient Problem Specific Plan: Monitor Clinically Problem Text: as per documentation currently in nsr does not appear to on anticoagulation (10) TIA (transient ischemic attack) Status: Chronic Discussed With: Patient Problem Specific Plan: Monitor Clinically Problem Text: as per history no residual deficits Plan/VTE VTE Prophylaxis Ordered?: Yes (heparin sc) Plan Diet: Continue Current Activity: Continue Current Therapy: PT Medications: Start Antibiotics Respiratory: Wean Oxygen Diagnostics: Repeat Labs in AM, Obtain Cultures Anticipated Discharge: Sub Acute Rehab IV antibiotics for HCAP - likely 5-7 days wean o2 mrsa screen pending sputum cultures pending continue rehab as per pt/ortho d/c to str when medically stable VS, I&O, 24H, Fishbone Vital Signs/I&O Vital Signs Date Time Temp Pulse Resp B/P (MAP) Pulse Ox O2 Delivery O2 Flow Rate FiO2 01/09/17 06:00 98.6 78 18 122/70 (87) 97 Nasal Cannula 01/08/17 22:00 3.0 I&O- Last 24 Hours up to 6 AM 01/09/17 06:00 Intake Total 966 ml Output Total 600 ml Balance 366 ml Laboratory Data 24H LABS Laboratory Tests 2 01/08/17 13:34: Blood Gas Bicarbonate Standard 28.2H, Arterial Blood pH 7.478H, Arterial Blood Partial Pressure CO2 38.5, Arterial Blood Partial Pressure O2 78.7, Arterial Blood Total CO2 29.1, Arterial Blood HCO3 27.9H, Arterial Blood Base Excess 4.2H , Arterial Blood Oxygen Saturation 95.8 01/08/17 15:39: Urine Appearance HAZY, Urine Color HA, Urine pH 5.0, Urine Specific [place] 1.021, Urine Protein NEGATIVE, Urine Glucose (UA) NEGATIVE, Urine Ketones NEGATIVE, Urine Urobilinogen 4.0H, Urine Bilirubin 1+H, Urine Leukocyte Esterase 2+H, Urine Blood 1+H, Urine Nitrite POSITIVE, Urine WBC (Auto) 89H, Urine RBC (Auto) 24H, Urine Hyaline Casts (Auto) 0, Urine Bacteria (Auto) 3+H, Urine Squamous Epithelial Cells 1, Urine Mucus (Auto) LARGE, Urine Sperm (Auto) 01/09/17 06:51: White Blood Count 10.4H, Red Blood Count 3.17L, Hemoglobin 10.6L, Hematocrit 31.8L, Mean Corpuscular Volume 100.2H, Mean Corpuscular Hemoglobin 33.5H, Mean Corpuscular Hemoglobin Concent 33.5, Red Cell Distribution Width 14.3, Platelet Count 155, Neutrophils (%) (Auto) 76.5H, Lymphocytes (%) (Auto) 10.1L, Monocytes (%) (Auto) 6.7H, Eosinophils (%) (Auto) 4.5H, Basophils (%) (Auto) 0.6 , Neutrophils # (Auto) 8.0H, Lymphocytes # (Auto) 1.2L, Monocytes # (Auto) 0.7, Eosinophils # (Auto) 0.5, Basophils # (Auto) 0.1, Large Unclassified Cells % 1.7 , Large Unclassified Cells # 0.2 CBC/BMP Laboratory Tests 01/09/17 06:51 Red Blood Count 3.17 L, Mean Corpuscular Volume 100.2 H, Mean Corpuscular Hemoglobin 33.5 H, Mean Corpuscular Hemoglobin Concent 33.5, Red Cell Distribution Width 14.3, Neutrophils (%) (Auto) 76.5 H, Lymphocytes (%) (Auto) 10.1 L, Monocytes (%) (Auto) 6.7 H, Eosinophils (%) (Auto) 4.5 H, Basophils (%) (Auto) 0.6, Neutrophils # (Auto) 8.0 H, Lymphocytes # (Auto) 1.2 L, Monocytes # (Auto) 0.7, Eosinophils # (Auto) 0.5, Basophils # (Auto) 0.1 Microbiology Microbiology 01/08/17 Blood Culture, Received Pending 01/08/17 Blood Culture, Received Pending 01/08/17 MRSA Screen, Received Pending 01/08/17 Urine Culture, Received Pending SHERRY OCHOA MD January 09, 2017 07:28
[2017-01-09] MEDS: OMEPRAZOLE 20 MG CAP PO SCH (08:59)
[2017-01-09] MEDS: BISACODYL 5 MG TAB PO SCH (08:59)
[2017-01-09] MEDS: ATENOLOL 25 MG TAB PO SCH (09:00)
[2017-01-09] MEDS: ESCITALOPRAM OXALATE 10 MG TAB (LEXAPRO) PO SCH (09:00)
[2017-01-09] MEDS: MIRALAX *UNIT DOSE* 17GM PACKET PO SCH (09:00)
[2017-01-09] MEDS: FUROSEMIDE 40 MG TAB PO SCH (09:00)
[2017-01-09] MEDS: PERCOCET 5MG/325MG TAB PO PRN (09:01)
[2017-01-09] MEDS: SIMVASTATIN 20 MG TAB PO SCH (20:31)
[2017-01-09] MEDS: SENNA 8.6 MG TAB (SENOKOT) PO SCH (20:31)
[2017-01-09 22:00] VITALS: BP 93/58
[2017-01-10] MEDS: MEROPENEM INJ 1 GM in D5W MINI-BAG PLUS 100 ML IV SCH ×3 (02:11→17:07)
[2017-01-10] MEDS: HEPARIN SOD (PORCINE) 5000 UNITS/ML VIAL SQ SCH ×3 (05:08→20:55)
[2017-01-10 06:00] VITALS: BP 119/78
[2017-01-10 06:58] LABS: BASO # 0.1 K/mm3 (0.0-0.2); BASO % 0.7 % (0.0-1.0); EOS # 0.4 K/mm3 (0.0-0.50); EOS % 4.3 % (0.0-3.0); LARGE UNSTAINED CELL # 0.2 K/mm3 (0.0-0.4); LARGE UNSTAINED CELL % 2.4 % (0.0-4.0); LYMPH # 1.1 K/mm3 (1.5-4.5); LYMPH % 11.6 % (24.0-44.0); MEAN CORPUSCULAR HEMOGLOBIN 32.7 pg (27.0-33.0); MEAN CORPUSCULAR HGB CONC 33.2 g/dl (32.0-36.5); MEAN CORPUSCULAR VOLUME 98.4 fl (80.0-96.0); MONO # 0.6 K/mm3 (0.0-0.8); MONO % 6.8 % (0.0-5.0); NEUTROPHILS % 74.1 % (36.0-66.0); PLATELET COUNT, AUTOMATED 181 k/mm3 (150-450); RED CELL DISTRIBUTION WIDTH 14.2 % (11.5-14.5); WHITE BLOOD COUNT 8.1 K/mm3 (4.0-10.0)
[2017-01-10 07:23] LABS: ANION GAP 10 MEQ/L (8-16); BLOOD UREA NITROGEN 31 MG/DL (7-18); CALCIUM LEVEL 8.1 MG/DL (8.8-10.2); CARBON DIOXIDE LEVEL 29 MEQ/L (21-32); CHLORIDE LEVEL 105 MEQ/L (98-107); CREATININE FOR GFR 0.61 MG/DL (0.70-1.30); GLOMERULAR FILTRATION RATE > 60.0 (>35); GLUCOSE, FASTING 102 MG/DL (83-110); POTASSIUM SERUM 3.7 MEQ/L (3.5-5.1); SODIUM LEVEL 144 MEQ/L (136-145)
[2017-01-10 08:00] VITALS: BP 115/70
[2017-01-10] MEDS: FUROSEMIDE 40 MG TAB PO SCH (08:58)
[2017-01-10] MEDS: BISACODYL 5 MG TAB PO SCH (08:58)
[2017-01-10] MEDS: ESCITALOPRAM OXALATE 10 MG TAB (LEXAPRO) PO SCH (08:58)
[2017-01-10] MEDS: ATENOLOL 25 MG TAB PO SCH (08:59)
[2017-01-10] MEDS: OMEPRAZOLE 20 MG CAP PO SCH (08:59)
[2017-01-10] MEDS: MIRALAX *UNIT DOSE* 17GM PACKET PO SCH (08:59)
--- NOTE | 2017-01-10 10:49 | IPNPDOC ---
Subjective Date Seen The patient was seen on 01/10/17. Subjective Chief Complaint/HPI The patient is a 81-year-old male admitted with a reason for visit of Fall; Pelvic Fx. Events since last encounter Is feeling better today. Low grade fever last night. No new medical complaints today. General: Denies: ROS Unobtainable, Chills, Night Sweats, Fatigue, Malaise, Normal Appetite, Other Symptoms Constitutional: Denies: Chills, Fever, Malaise, Night Sweats, Weakness, Fatigue , Weight Loss, Lethargy, Other Eyes: Denies: Pain, Vision change, Conjunctivae inflammation, Eyelid inflammation, Redness, Other ENT: Denies: Head Aches, Ear Pain, Dysphagia, Sinus Congestion, Post Nasal Drip , Sore Throat, Epistaxis, Other Symptoms Skin: Denies: Rash, Lesions, Jaundice, Bruising, Itching, Dry, Breakdown, Nail Changes, Other Pulmonary: Reports: Dyspnea (states he gets short of breath with speaking), Denies: Cough, Pleuritic Chest Pain, Other Symptoms Cardiovascular: Denies: Chest Pain, Palpitations, Orthopnea, Paroxysmal Noc. Dyspnea, Edema, Lt Headedness, Other Symptoms Gastrointestinal: Denies: Nausea, Vomiting, Abdominal Pain, Diarrhea, Constipation, Melena, Hematochezia, Other Symptoms Objective Physical Examination General Exam: Positive: Alert, Cooperative, No Acute Distress, Other (dyspnea with speaking full sentences) Eye Exam: Positive: PERRLA, Conjunctiva & lids normal, EOMI, Negative: Sclera icteric ENT Exam: Positive: Atraumatic, Mucous membr. moist/pink Neck Exam: Positive: Supple Chest Exam: Positive: Clear to auscultation, Normal air movement, Diminished ( diminished right breath sounds), Negative: Rales, Wheezing Heart Exam: Positive: Rate Normal, Normal S1, Normal S2, Murmurs, Negative: Tachycardic, Bradycardic, Gallops Abdomen Exam: Positive: Normal bowel sounds, Soft, Negative: BS Hyperactive, BS Hypoactive, Tenderness Psych Exam: Positive: Oriented x 3 Assessment /Plan Problems (1) Hospital acquired PNA Status: Acute Response to Treatment: Improving Discussed With: Patient Problem Specific Plan: Monitor Clinically, Repeat Labs, Repeat Tests Problem Text: IV meropenem - low grade fever last night sputum cultures pending mrsa screen negative saturating well on room air, but sob with speaking full sentences incentive spirometry/acapella (2) Pelvic fracture Status: Acute Response to Treatment: Stable Discussed With: Patient Problem Specific Plan: Consult Specialist Problem Text: right superior and inferior pubic ramus fracture, right sacral fracture ortho c/s appreciated - no surgical intervention - rehab plan is for d/c to rehab when medically stable (3) Hypertension Status: Chronic Response to Treatment: Stable Discussed With: Patient Problem Specific Plan: Monitor Clinically Problem Text: Continue to monitor and continue home medications w/ hold parameters atenolol (4) Anemia Status: Chronic Response to Treatment: Stable Discussed With: Patient Problem Specific Plan: Monitor Clinically, Repeat Labs Problem Text: will continue to monitor (5) GERD (gastroesophageal reflux disease) Status: Chronic Response to Treatment: Stable Discussed With: Patient Problem Text: continue home medications (6) Constipation Status: Chronic Response to Treatment: Stable Problem Specific Plan: Monitor Clinically Problem Text: continue home medications (7) Dyslipidemia Status: Chronic Response to Treatment: Stable Discussed With: Patient Problem Text: continue home medications (8) Depression Status: Chronic Response to Treatment: Stable Problem Text: continue lexapro (9) Paroxysmal a-fib Status: Chronic Discussed With: Patient Problem Specific Plan: Monitor Clinically Problem Text: as per documentation currently in nsr does not appear to on anticoagulation (10) TIA (transient ischemic attack) Status: Chronic Discussed With: Patient Problem Specific Plan: Monitor Clinically Problem Text: as per history no residual deficits Plan/VTE VTE Prophylaxis Ordered?: Yes (heparin sc) Plan Diet: Continue Current Activity: Continue Current Therapy: PT Medications: Start Antibiotics Respiratory: Wean Oxygen Diagnostics: Repeat Labs in AM, Obtain Cultures Anticipated Discharge: Sub Acute Rehab IV antibiotics. Sputum cultures pending. Still SOB with speaking full sentences. VS, I&O, 24H, Fishbone Vital Signs/I&O Vital Signs Date Time Temp Pulse Resp B/P (MAP) Pulse Ox O2 Delivery O2 Flow Rate FiO2 01/10/17 08:00 99.3 97 22 115/70 (85) 91 Room Air 01/09/17 08:02 2.0 I&O- Last 24 Hours up to 6 AM 01/10/17 06:00 Intake Total 440 ml Output Total 600 ml Balance -160 ml Laboratory Data 24H LABS Laboratory Tests 2 01/10/17 06:26: White Blood Count 8.1, Red Blood Count 3.33L, Hemoglobin 10.9L, Hematocrit 32.7L , Mean Corpuscular Volume 98.4H, Mean Corpuscular Hemoglobin 32.7, Mean Corpuscular Hemoglobin Concent 33.2, Red Cell Distribution Width 14.2, Platelet Count 181, Neutrophils (%) (Auto) 74.1H, Lymphocytes (%) (Auto) 11.6L, Monocytes (%) (Auto) 6.8H, Eosinophils (%) (Auto) 4.3H, Basophils (%) (Auto) 0.7 , Neutrophils # (Auto) 6.0, Lymphocytes # (Auto) 1.1L, Monocytes # (Auto) 0.6, Eosinophils # (Auto) 0.4, Basophils # (Auto) 0.1, Large Unclassified Cells % 2.4 , Large Unclassified Cells # 0.2, Anion Gap 10, Glomerular Filtration Rate > 60.0, Blood Urea Nitrogen 31H, Creatinine 0.61L, Sodium Level 144, Potassium Level 3.7, Chloride Level 105, Carbon Dioxide Level 29, Calcium Level 8.1L CBC/BMP Laboratory Tests 01/10/17 06:26 Red Blood Count 3.33 L, Mean Corpuscular Volume 98.4 H, Mean Corpuscular Hemoglobin 32.7, Mean Corpuscular Hemoglobin Concent 33.2, Red Cell Distribution Width 14.2, Neutrophils (%) (Auto) 74.1 H, Lymphocytes (%) (Auto) 11.6 L, Monocytes (%) (Auto) 6.8 H, Eosinophils (%) (Auto) 4.3 H, Basophils (%) (Auto) 0.7, Neutrophils # (Auto) 6.0, Lymphocytes # (Auto) 1.1 L, Monocytes # ( Auto) 0.6, Eosinophils # (Auto) 0.4, Basophils # (Auto) 0.1, Calcium Level 8.1 L Microbiology Microbiology 01/08/17 Blood Culture - Preliminary, Resulted No growth after 24 hours . All specim... 01/08/17 Blood Culture - Preliminary, Resulted No growth after 24 hours . All specim... 01/09/17 Gram Stain - Final, Resulted 01/09/17 Sputum Culture, Resulted Pending 01/08/17 MRSA Screen - Final, Complete 01/08/17 Urine Culture - Final, Complete Klebsiella Oxytoca SHERRY OCHOA MD January 10, 2017 10:49
[2017-01-10 13:16] VITALS: BP 110/70
[2017-01-10] MEDS: SIMVASTATIN 20 MG TAB PO SCH (20:56)
[2017-01-10] MEDS: SENNA 8.6 MG TAB (SENOKOT) PO SCH (20:56)
[2017-01-10 22:00] VITALS: BP 123/60
[2017-01-11] MEDS: MEROPENEM INJ 1 GM in D5W MINI-BAG PLUS 100 ML IV SCH ×3 (02:04→18:26)
[2017-01-11] MEDS: HEPARIN SOD (PORCINE) 5000 UNITS/ML VIAL SQ SCH ×3 (05:38→20:30)
[2017-01-11 06:00] VITALS: BP 128/80
[2017-01-11 06:34] LABS: BASO # 0.1 K/mm3 (0.0-0.2); BASO % 1.1 % (0.0-1.0); EOS # 0.3 K/mm3 (0.0-0.50); EOS % 3.7 % (0.0-3.0); LARGE UNSTAINED CELL # 0.2 K/mm3 (0.0-0.4); LARGE UNSTAINED CELL % 2.1 % (0.0-4.0); LYMPH # 1.1 K/mm3 (1.5-4.5); MEAN CORPUSCULAR HEMOGLOBIN 33.6 pg (27.0-33.0); MEAN CORPUSCULAR HGB CONC 33.5 g/dl (32.0-36.5); MEAN CORPUSCULAR VOLUME 100.2 fl (80.0-96.0); MONO # 0.6 K/mm3 (0.0-0.8); MONO % 7.6 % (0.0-5.0); NEUTROPHILS # 5.5 K/mm3 (1.8-7.7); NEUTROPHILS % 72.4 % (36.0-66.0); PLATELET COUNT, AUTOMATED 183 k/mm3 (150-450); RED CELL DISTRIBUTION WIDTH 14.2 % (11.5-14.5); WHITE BLOOD COUNT 7.6 K/mm3 (4.0-10.0)
[2017-01-11 06:52] LABS: ANION GAP 8 MEQ/L (8-16); BLOOD UREA NITROGEN 24 MG/DL (7-18); CARBON DIOXIDE LEVEL 28 MEQ/L (21-32); CHLORIDE LEVEL 107 MEQ/L (98-107); CREATININE FOR GFR 0.49 MG/DL (0.70-1.30); GLOMERULAR FILTRATION RATE > 60.0 (>35); GLUCOSE, FASTING 100 MG/DL (83-110); POTASSIUM SERUM 3.7 MEQ/L (3.5-5.1); SODIUM LEVEL 143 MEQ/L (136-145)
--- NOTE | 2017-01-11 08:24 | IPNPDOC ---
Subjective Date Seen The patient was seen on 01/11/17. Subjective Chief Complaint/HPI The patient is a 81-year-old male admitted with a reason for visit of Fall; Pelvic Fx. General: Denies: ROS Unobtainable, Chills, Night Sweats, Fatigue, Malaise, Normal Appetite, Other Symptoms Constitutional: Denies: Chills, Fever, Malaise, Night Sweats, Weakness, Fatigue , Weight Loss, Lethargy, Other Eyes: Denies: Pain, Vision change, Conjunctivae inflammation, Eyelid inflammation, Redness, Other ENT: Denies: Head Aches, Ear Pain, Dysphagia, Sinus Congestion, Post Nasal Drip , Sore Throat, Epistaxis, Other Symptoms Skin: Denies: Rash, Lesions, Jaundice, Bruising, Itching, Dry, Breakdown, Nail Changes, Other Pulmonary: Reports: Cough, Denies: Dyspnea, Pleuritic Chest Pain, Other Symptoms Cardiovascular: Denies: Chest Pain, Palpitations, Orthopnea, Paroxysmal Noc. Dyspnea, Edema, Lt Headedness, Other Symptoms Gastrointestinal: Denies: Nausea, Vomiting, Abdominal Pain, Diarrhea, Constipation, Melena, Hematochezia, Other Symptoms Objective Physical Examination General Exam: Positive: Alert, Cooperative, No Acute Distress, Other (dyspnea with speaking full sentences) Eye Exam: Positive: PERRLA, Conjunctiva & lids normal, EOMI, Negative: Sclera icteric ENT Exam: Positive: Atraumatic, Mucous membr. moist/pink Neck Exam: Positive: Supple Chest Exam: Positive: Clear to auscultation, Normal air movement, Diminished ( diminished right breath sounds), Negative: Rales, Wheezing Heart Exam: Positive: Rate Normal, Normal S1, Normal S2, Murmurs, Negative: Tachycardic, Bradycardic, Gallops Abdomen Exam: Positive: Normal bowel sounds, Soft, Negative: BS Hyperactive, BS Hypoactive, Tenderness Psych Exam: Positive: Oriented x 3 Assessment /Plan Problems (1) Hospital acquired PNA Status: Acute Response to Treatment: Improving Discussed With: Patient Problem Specific Plan: Monitor Clinically, Repeat Labs, Repeat Tests Problem Text: IV meropenem - low grade fever last night sputum cultures pending mrsa screen negative saturating well on room air, but still some sob with speaking full sentences incentive spirometry/acapella/mucolytics/acapella (2) Pelvic fracture Status: Acute Response to Treatment: Stable Discussed With: Patient Problem Specific Plan: Consult Specialist Problem Text: right superior and inferior pubic ramus fracture, right sacral fracture ortho c/s appreciated - no surgical intervention - rehab plan is for d/c to rehab when medically stable (3) Hypertension Status: Chronic Response to Treatment: Stable Discussed With: Patient Problem Specific Plan: Monitor Clinically Problem Text: Continue to monitor and continue home medications w/ hold parameters atenolol (4) Anemia Status: Chronic Response to Treatment: Stable Discussed With: Patient Problem Specific Plan: Monitor Clinically, Repeat Labs Problem Text: will continue to monitor (5) GERD (gastroesophageal reflux disease) Status: Chronic Response to Treatment: Stable Discussed With: Patient Problem Text: continue home medications (6) Constipation Status: Chronic Response to Treatment: Stable Problem Specific Plan: Monitor Clinically Problem Text: continue home medications (7) Dyslipidemia Status: Chronic Response to Treatment: Stable Discussed With: Patient Problem Text: continue home medications (8) Depression Status: Chronic Response to Treatment: Stable Problem Text: continue lexapro (9) Paroxysmal a-fib Status: Chronic Discussed With: Patient Problem Specific Plan: Monitor Clinically Problem Text: as per documentation currently in nsr does not appear to on anticoagulation (10) TIA (transient ischemic attack) Status: Chronic Discussed With: Patient Problem Specific Plan: Monitor Clinically Problem Text: as per history no residual deficits Plan/VTE VTE Prophylaxis Ordered?: Yes (heparin sc) Plan Diet: Continue Current Activity: Continue Current Therapy: PT Medications: Start Antibiotics Respiratory: Wean Oxygen Diagnostics: Repeat Labs in AM, Obtain Cultures Anticipated Discharge: Sub Acute Rehab continue with iv antibiotics for hcap Disposition anticipating discharge to rehab on saturday01/14/17 VS, I&O, 24H, [facility] Vital Signs/I&O Vital Signs Date Time Temp Pulse Resp B/P (MAP) Pulse Ox O2 Delivery O2 Flow Rate FiO2 01/11/17 06:00 98.6 62 15 128/80 (96) 96 Room Air 01/09/17 08:02 2.0 I&O- Last 24 Hours up to 6 AM 01/11/17 05:59 Intake Total 2360 ml Output Total 1425 ml Balance 935 ml Laboratory Data 24H LABS Laboratory Tests 2 01/11/17 06:09: White Blood Count 7.6, Red Blood Count 3.37L, Hemoglobin 11.3L, Hematocrit 33.8L , Mean Corpuscular Volume 100.2H, Mean Corpuscular Hemoglobin 33.6H, Mean Corpuscular Hemoglobin Concent 33.5, Red Cell Distribution Width 14.2, Platelet Count 183, Neutrophils (%) (Auto) 72.4H, Lymphocytes (%) (Auto) 13.0L, Monocytes (%) (Auto) 7.6H, Eosinophils (%) (Auto) 3.7H, Basophils (%) (Auto) 1.1H, Neutrophils # (Auto) 5.5, Lymphocytes # (Auto) 1.1L, Monocytes # (Auto) 0.6, Eosinophils # (Auto) 0.3, Basophils # (Auto) 0.1, Large Unclassified Cells % 2.1, Large Unclassified Cells # 0.2, Anion Gap 8, Glomerular Filtration Rate > 60.0, Blood Urea Nitrogen 24H, Creatinine 0.49L, Sodium Level 143, Potassium Level 3.7, Chloride Level 107, Carbon Dioxide Level 28, Calcium Level 8.0L CBC/BMP Laboratory Tests 01/11/17 06:09 Red Blood Count 3.37 L, Mean Corpuscular Volume 100.2 H, Mean Corpuscular Hemoglobin 33.6 H, Mean Corpuscular Hemoglobin Concent 33.5, Red Cell Distribution Width 14.2, Neutrophils (%) (Auto) 72.4 H, Lymphocytes (%) (Auto) 13.0 L, Monocytes (%) (Auto) 7.6 H, Eosinophils (%) (Auto) 3.7 H, Basophils (%) (Auto) 1.1 H, Neutrophils # (Auto) 5.5, Lymphocytes # (Auto) 1.1 L, Monocytes # (Auto) 0.6, Eosinophils # (Auto) 0.3, Basophils # (Auto) 0.1, Calcium Level 8.0 L Microbiology Microbiology 01/08/17 Blood Culture - Preliminary, Resulted No Growth after 48 hours. All Specime... 01/08/17 Blood Culture - Preliminary, Resulted No Growth after 48 hours. All Specime... 01/09/17 Gram Stain - Final, Resulted 01/09/17 Sputum Culture, Resulted Pending 01/08/17 MRSA Screen - Final, Complete 01/08/17 Urine Culture - Final, Complete Klebsiella Oxytoca SHERRY OCHOA MD January 11, 2017 08:24
[2017-01-11 08:43] VITALS: BP 128/61
[2017-01-11] MEDS: MIRALAX *UNIT DOSE* 17GM PACKET PO SCH (09:28)
[2017-01-11] MEDS: BISACODYL 5 MG TAB PO SCH (09:29)
[2017-01-11] MEDS: guaiFENesin 200 MG TAB PO SCH ×3 (09:29→20:30)
[2017-01-11] MEDS: OMEPRAZOLE 20 MG CAP PO SCH (09:30)
[2017-01-11] MEDS: ATENOLOL 25 MG TAB PO SCH (09:30)
[2017-01-11] MEDS: FUROSEMIDE 40 MG TAB PO SCH (09:30)
[2017-01-11] MEDS: ESCITALOPRAM OXALATE 10 MG TAB (LEXAPRO) PO SCH (09:31)
[2017-01-11 09:56] VITALS: O2SAT 94
[2017-01-11 17:56] VITALS: O2SAT 94
[2017-01-11] MEDS: SIMVASTATIN 20 MG TAB PO SCH (20:30)
[2017-01-11] MEDS: SENNA 8.6 MG TAB (SENOKOT) PO SCH (20:30)
[2017-01-11] MEDS: PERCOCET 5MG/325MG TAB PO PRN (20:31)
[2017-01-11 22:00] VITALS: BP 106/59
[2017-01-12] MEDS: MEROPENEM INJ 1 GM in D5W MINI-BAG PLUS 100 ML IV SCH ×3 (01:56→17:23)
[2017-01-12] MEDS: HEPARIN SOD (PORCINE) 5000 UNITS/ML VIAL SQ SCH ×3 (05:48→21:25)
[2017-01-12 06:00] VITALS: BP 123/65
[2017-01-12 06:10] LABS: BASO # 0.1 K/mm3 (0.0-0.2); BASO % 0.9 % (0.0-1.0); EOS # 0.4 K/mm3 (0.0-0.50); EOS % 6.9 % (0.0-3.0); LARGE UNSTAINED CELL # 0.2 K/mm3 (0.0-0.4); LYMPH # 1.2 K/mm3 (1.5-4.5); LYMPH % 18.9 % (24.0-44.0); MEAN CORPUSCULAR HGB CONC 33.5 g/dl (32.0-36.5); MEAN CORPUSCULAR VOLUME 101.4 fl (80.0-96.0); MONO # 0.5 K/mm3 (0.0-0.8); MONO % 8.3 % (0.0-5.0); NEUTROPHILS # 3.9 K/mm3 (1.8-7.7); NEUTROPHILS % 61.9 % (36.0-66.0); PLATELET COUNT, AUTOMATED 197 k/mm3 (150-450); WHITE BLOOD COUNT 6.2 K/mm3 (4.0-10.0)
[2017-01-12 06:29] LABS: ANION GAP 7 MEQ/L (8-16); BLOOD UREA NITROGEN 28 MG/DL (7-18); CALCIUM LEVEL 7.8 MG/DL (8.8-10.2); CARBON DIOXIDE LEVEL 30 MEQ/L (21-32); CHLORIDE LEVEL 108 MEQ/L (98-107); CREATININE FOR GFR 0.46 MG/DL (0.70-1.30); GLOMERULAR FILTRATION RATE > 60.0 (>35); GLUCOSE, FASTING 102 MG/DL (83-110); POTASSIUM SERUM 3.6 MEQ/L (3.5-5.1); SODIUM LEVEL 145 MEQ/L (136-145)
[2017-01-12] MEDS: PERCOCET 5MG/325MG TAB PO PRN ×2 (08:18→17:23)
[2017-01-12 08:50] VITALS: BP 110/80
[2017-01-12] MEDS: guaiFENesin 200 MG TAB PO SCH ×3 (09:28→21:25)
[2017-01-12] MEDS: OMEPRAZOLE 20 MG CAP PO SCH (09:29)
[2017-01-12] MEDS: ESCITALOPRAM OXALATE 10 MG TAB (LEXAPRO) PO SCH (09:29)
[2017-01-12] MEDS: BISACODYL 5 MG TAB PO SCH (09:29)
[2017-01-12] MEDS: FUROSEMIDE 40 MG TAB PO SCH (09:29)
[2017-01-12] MEDS: MIRALAX *UNIT DOSE* 17GM PACKET PO SCH (09:30)
[2017-01-12] MEDS: ATENOLOL 25 MG TAB PO SCH (09:30)
[2017-01-12 14:20] VITALS: BP 103/55
--- NOTE | 2017-01-12 14:40 | IPNPDOC ---
Subjective Date Seen The patient was seen on 01/12/17. Subjective Chief Complaint/HPI The patient is a 81-year-old male admitted with a reason for visit of Fall; Pelvic Fx. General: Denies: ROS Unobtainable, Chills, Night Sweats, Fatigue, Malaise, Normal Appetite, Other Symptoms Constitutional: Denies: Chills, Fever, Malaise, Night Sweats, Weakness, Fatigue , Weight Loss, Lethargy, Other Eyes: Denies: Pain, Vision change, Conjunctivae inflammation, Eyelid inflammation, Redness, Other ENT: Denies: Head Aches, Ear Pain, Dysphagia, Sinus Congestion, Post Nasal Drip , Sore Throat, Epistaxis, Other Symptoms Skin: Denies: Rash, Lesions, Jaundice, Bruising, Itching, Dry, Breakdown, Nail Changes, Other Pulmonary: Reports: Dyspnea, Cough, Denies: Pleuritic Chest Pain, Other Symptoms Cardiovascular: Denies: Chest Pain, Palpitations, Orthopnea, Paroxysmal Noc. Dyspnea, Edema, Lt Headedness, Other Symptoms Gastrointestinal: Denies: Nausea, Vomiting, Abdominal Pain, Diarrhea, Constipation, Melena, Hematochezia, Other Symptoms Musculoskeletal: Reports: Back Pain, Leg Pain Objective Physical Examination General Exam: Positive: Alert, Cooperative, No Acute Distress, Other (dyspnea with speaking full sentences) Eye Exam: Positive: PERRLA, Conjunctiva & lids normal, EOMI, Negative: Sclera icteric ENT Exam: Positive: Atraumatic, Mucous membr. moist/pink Neck Exam: Positive: Supple Chest Exam: Positive: Clear to auscultation, Normal air movement, Diminished ( diminished right breath sounds), Negative: Rales, Wheezing Heart Exam: Positive: Rate Normal, Normal S1, Normal S2, Murmurs, Negative: Tachycardic, Bradycardic, Gallops Abdomen Exam: Positive: Normal bowel sounds, Soft, Negative: BS Hyperactive, BS Hypoactive, Tenderness Psych Exam: Positive: Oriented x 3 Assessment /Plan Problems (1) Hospital acquired PNA Status: Acute Response to Treatment: Improving Discussed With: Patient Problem Specific Plan: Monitor Clinically, Repeat Labs, Repeat Tests Problem Text: IV meropenem sputum cultures pending saturating well on room air, but still some dyspnea with minimal movement incentive spirometry/acapella/mucolytics/acapella (2) Pelvic fracture Status: Acute Response to Treatment: Stable Discussed With: Patient Problem Specific Plan: Consult Specialist Problem Text: right superior and inferior pubic ramus fracture, right sacral fracture ortho c/s appreciated - no surgical intervention - rehab plan is for d/c to rehab when medically stable (3) Hypertension Status: Chronic Response to Treatment: Stable Discussed With: Patient Problem Specific Plan: Monitor Clinically Problem Text: Continue to monitor and continue home medications w/ hold parameters atenolol (4) Anemia Status: Chronic Response to Treatment: Stable Discussed With: Patient Problem Specific Plan: Monitor Clinically, Repeat Labs Problem Text: will continue to monitor (5) GERD (gastroesophageal reflux disease) Status: Chronic Response to Treatment: Stable Discussed With: Patient Problem Text: continue home medications (6) Constipation Status: Chronic Response to Treatment: Stable Problem Specific Plan: Monitor Clinically Problem Text: continue home medications (7) Dyslipidemia Status: Chronic Response to Treatment: Stable Discussed With: Patient Problem Text: continue home medications (8) Depression Status: Chronic Response to Treatment: Stable Problem Text: continue lexapro (9) Paroxysmal a-fib Status: Chronic Discussed With: Patient Problem Specific Plan: Monitor Clinically Problem Text: as per documentation currently in nsr does not appear to on anticoagulation (10) TIA (transient ischemic attack) Status: Chronic Discussed With: Patient Problem Specific Plan: Monitor Clinically Problem Text: as per history no residual deficits Plan/VTE VTE Prophylaxis Ordered?: Yes (heparin sc) Plan Diet: Continue Current Activity: Continue Current Therapy: PT Medications: Start Antibiotics Respiratory: Wean Oxygen Diagnostics: Repeat Labs in AM, Obtain Cultures Anticipated Discharge: Sub Acute Rehab Continue IV antibiotics. Anticipating d/c to STR on Saturday01/14/17 VS, I&O, 24H, Fishbone Vital Signs/I&O Vital Signs Date Time Temp Pulse Resp B/P (MAP) Pulse Ox O2 Delivery O2 Flow Rate FiO2 01/12/17 14:09 Room Air 01/12/17 08:59 18 01/12/17 08:50 98.5 90 110/80 (90) 93 01/09/17 08:02 2.0 I&O- Last 24 Hours up to 6 AM 01/12/17 05:59 Intake Total 1020 ml Output Total 450 ml Balance 570 ml Laboratory Data 24H LABS Laboratory Tests 2 01/12/17 05:54: White Blood Count 6.2, Red Blood Count 3.32L, Hemoglobin 11.3L, Hematocrit 33.7L , Mean Corpuscular Volume 101.4H, Mean Corpuscular Hemoglobin 34.0H, Mean Corpuscular Hemoglobin Concent 33.5, Red Cell Distribution Width 14.0, Platelet Count 197, Neutrophils (%) (Auto) 61.9, Lymphocytes (%) (Auto) 18.9L, Monocytes (%) (Auto) 8.3H, Eosinophils (%) (Auto) 6.9H, Basophils (%) (Auto) 0.9, Neutrophils # (Auto) 3.9, Lymphocytes # (Auto) 1.2L, Monocytes # (Auto) 0.5, Eosinophils # (Auto) 0.4, Basophils # (Auto) 0.1, Large Unclassified Cells % 3.0 , Large Unclassified Cells # 0.2, Anion Gap 7L, Glomerular Filtration Rate > 60.0, Blood Urea Nitrogen 28H, Creatinine 0.46L, Sodium Level 145, Potassium Level 3.6, Chloride Level 108H, Carbon Dioxide Level 30, Calcium Level 7.8L CBC/BMP Laboratory Tests 01/12/17 05:54 Red Blood Count 3.32 L, Mean Corpuscular Volume 101.4 H, Mean Corpuscular Hemoglobin 34.0 H, Mean Corpuscular Hemoglobin Concent 33.5, Red Cell Distribution Width 14.0, Neutrophils (%) (Auto) 61.9, Lymphocytes (%) (Auto) 18.9 L, Monocytes (%) (Auto) 8.3 H, Eosinophils (%) (Auto) 6.9 H, Basophils (%) (Auto) 0.9, Neutrophils # (Auto) 3.9, Lymphocytes # (Auto) 1.2 L, Monocytes # ( Auto) 0.5, Eosinophils # (Auto) 0.4, Basophils # (Auto) 0.1, Calcium Level 7.8 L Microbiology Microbiology 01/08/17 Blood Culture - Preliminary, Resulted No Growth after 72 hours. All specime... 01/08/17 Blood Culture - Preliminary, Resulted No Growth after 72 hours. All specime... 01/09/17 Gram Stain - Final, Complete 01/09/17 Sputum Culture - Final, Complete 01/08/17 MRSA Screen - Final, Complete 01/08/17 Urine Culture - Final, Complete Klebsiella Oxytoca SHERRY OCHOA MD January 12, 2017 14:40
[2017-01-12] MEDS: SIMVASTATIN 20 MG TAB PO SCH (21:25)
[2017-01-12] MEDS: SENNA 8.6 MG TAB (SENOKOT) PO SCH (21:26)
[2017-01-12 22:00] VITALS: BP 104/57; O2SAT 93
[2017-01-13] MEDS: MEROPENEM INJ 1 GM in D5W MINI-BAG PLUS 100 ML IV SCH ×3 (03:01→17:52)
[2017-01-13 06:00] VITALS: BP 111/62
[2017-01-13 06:10] LABS: BASO # 0.1 K/mm3 (0.0-0.2); BASO % 1.1 % (0.0-1.0); EOS # 0.4 K/mm3 (0.0-0.50); EOS % 6.3 % (0.0-3.0); LARGE UNSTAINED CELL # 0.1 K/mm3 (0.0-0.4); LARGE UNSTAINED CELL % 1.9 % (0.0-4.0); LYMPH # 1.2 K/mm3 (1.5-4.5); LYMPH % 16.2 % (24.0-44.0); MEAN CORPUSCULAR HEMOGLOBIN 33.1 pg (27.0-33.0); MEAN CORPUSCULAR HGB CONC 33.4 g/dl (32.0-36.5); MEAN CORPUSCULAR VOLUME 99.1 fl (80.0-96.0); MONO # 0.4 K/mm3 (0.0-0.8); MONO % 6.2 % (0.0-5.0); NEUTROPHILS # 4.5 K/mm3 (1.8-7.7); NEUTROPHILS % 68.4 % (36.0-66.0); PLATELET COUNT, AUTOMATED 213 k/mm3 (150-450); RED CELL DISTRIBUTION WIDTH 14.3 % (11.5-14.5); WHITE BLOOD COUNT 6.6 K/mm3 (4.0-10.0)
[2017-01-13] MEDS: HEPARIN SOD (PORCINE) 5000 UNITS/ML VIAL SQ SCH ×3 (06:12→21:41)
[2017-01-13 06:29] LABS: ANION GAP 6 MEQ/L (8-16); BLOOD UREA NITROGEN 27 MG/DL (7-18); CARBON DIOXIDE LEVEL 30 MEQ/L (21-32); CHLORIDE LEVEL 106 MEQ/L (98-107); CREATININE FOR GFR 0.48 MG/DL (0.70-1.30); GLOMERULAR FILTRATION RATE > 60.0 (>35); GLUCOSE, FASTING 95 MG/DL (83-110); POTASSIUM SERUM 3.8 MEQ/L (3.5-5.1); SODIUM LEVEL 142 MEQ/L (136-145)
[2017-01-13 08:15] VITALS: O2SAT 94
--- NOTE | 2017-01-13 08:31 | IPNPDOC ---
Subjective Date Seen The patient was seen on 01/13/17. Subjective Chief Complaint/HPI The patient is a 81-year-old male admitted with a reason for visit of Fall; Pelvic Fx. General: Denies: ROS Unobtainable, Chills, Night Sweats, Fatigue, Malaise, Normal Appetite, Other Symptoms Constitutional: Denies: Chills, Fever, Malaise, Night Sweats, Weakness, Fatigue , Weight Loss, Lethargy, Other Eyes: Denies: Pain, Vision change, Conjunctivae inflammation, Eyelid inflammation, Redness, Other ENT: Denies: Head Aches, Ear Pain, Dysphagia, Sinus Congestion, Post Nasal Drip , Sore Throat, Epistaxis, Other Symptoms Skin: Denies: Rash, Lesions, Jaundice, Bruising, Itching, Dry, Breakdown, Nail Changes, Other Pulmonary: Denies: Dyspnea, Cough, Pleuritic Chest Pain, Other Symptoms Cardiovascular: Denies: Chest Pain, Palpitations, Orthopnea, Paroxysmal Noc. Dyspnea, Edema, Lt Headedness, Other Symptoms Gastrointestinal: Denies: Nausea, Vomiting, Abdominal Pain, Diarrhea, Constipation, Melena, Hematochezia, Other Symptoms Genitourinary: Denies: Dysuria, Frequency, Incontinence, Hematuria, Retention, Other Symptoms Objective Physical Examination General Exam: Positive: Alert, Cooperative, No Acute Distress, Other (dyspnea with speaking full sentences) Eye Exam: Positive: PERRLA, Conjunctiva & lids normal, EOMI, Negative: Sclera icteric ENT Exam: Positive: Atraumatic, Mucous membr. moist/pink Neck Exam: Positive: Supple Chest Exam: Positive: Clear to auscultation, Normal air movement, Negative: Rales, Wheezing Heart Exam: Positive: Rate Normal, Normal S1, Normal S2, Murmurs (systolic murmur), Negative: Tachycardic, Bradycardic, Gallops Abdomen Exam: Positive: Normal bowel sounds, Soft, Negative: BS Hyperactive, BS Hypoactive, Tenderness Psych Exam: Positive: Oriented x 3 Assessment /Plan Problems (1) Hospital acquired PNA Status: Acute Response to Treatment: Improving Discussed With: Patient Problem Specific Plan: Monitor Clinically, Repeat Labs, Repeat Tests Problem Text: IV meropenem - day #5 sputum cultures - normal erickson saturating well on room air, but still some dyspnea with movement incentive spirometry/acapella/mucolytics/acapella (2) Pelvic fracture Status: Acute Response to Treatment: Stable Discussed With: Patient Problem Specific Plan: Consult Specialist Problem Text: right superior and inferior pubic ramus fracture, right sacral fracture ortho c/s appreciated - no surgical intervention - rehab plan is for d/c to rehab when medically stable (3) Hypertension Status: Chronic Response to Treatment: Stable Discussed With: Patient Problem Specific Plan: Monitor Clinically Problem Text: Continue to monitor and continue home medications w/ hold parameters atenolol (4) Anemia Status: Chronic Response to Treatment: Stable Discussed With: Patient Problem Specific Plan: Monitor Clinically, Repeat Labs Problem Text: will continue to monitor (5) GERD (gastroesophageal reflux disease) Status: Chronic Response to Treatment: Stable Discussed With: Patient Problem Text: continue home medications (6) Constipation Status: Chronic Response to Treatment: Stable Problem Specific Plan: Monitor Clinically Problem Text: continue home medications (7) Dyslipidemia Status: Chronic Response to Treatment: Stable Discussed With: Patient Problem Text: continue home medications (8) Depression Status: Chronic Response to Treatment: Stable Problem Text: continue lexapro (9) Paroxysmal a-fib Status: Chronic Discussed With: Patient Problem Specific Plan: Monitor Clinically Problem Text: as per documentation currently in nsr does not appear to on anticoagulation (10) TIA (transient ischemic attack) Status: Chronic Discussed With: Patient Problem Specific Plan: Monitor Clinically Problem Text: as per history no residual deficits Plan/VTE VTE Prophylaxis Ordered?: Yes (heparin sc) Plan Diet: Continue Current Activity: Continue Current Therapy: PT Medications: Start Antibiotics Diagnostics: Repeat Labs in AM Anticipated Discharge: Sub Acute Rehab Will complete adequate course antibiotics tomorrow with plan for discharge to [facility]. Patient is requesting home with PT. Will d/w case management tomorrow. VS, I&O, 24H, Fishbone Vital Signs/I&O Vital Signs Date Time Temp Pulse Resp B/P (MAP) Pulse Ox O2 Delivery O2 Flow Rate FiO2 01/13/17 06:00 98.7 82 18 111/62 (78) 94 Room Air 01/09/17 08:02 2.0 I&O- Last 24 Hours up to 6 AM 01/13/17 06:00 Intake Total 1608 ml Output Total 500 ml Balance 1108 ml Laboratory Data 24H LABS Laboratory Tests 2 01/13/17 05:58: White Blood Count 6.6, Red Blood Count 3.42L, Hemoglobin 11.3L, Hematocrit 33.9L , Mean Corpuscular Volume 99.1H, Mean Corpuscular Hemoglobin 33.1H, Mean Corpuscular Hemoglobin Concent 33.4, Red Cell Distribution Width 14.3, Platelet Count 213, Neutrophils (%) (Auto) 68.4H, Lymphocytes (%) (Auto) 16.2L, Monocytes (%) (Auto) 6.2H, Eosinophils (%) (Auto) 6.3H, Basophils (%) (Auto) 1.1H, Neutrophils # (Auto) 4.5, Lymphocytes # (Auto) 1.2L, Monocytes # (Auto) 0.4, Eosinophils # (Auto) 0.4, Basophils # (Auto) 0.1, Large Unclassified Cells % 1.9, Large Unclassified Cells # 0.1, Anion Gap 6L, Glomerular Filtration Rate > 60.0, Blood Urea Nitrogen 27H, Creatinine 0.48L, Sodium Level 142, Potassium Level 3.8, Chloride Level 106, Carbon Dioxide Level 30, Calcium Level 8.0L CBC/BMP Laboratory Tests 01/13/17 05:58 Red Blood Count 3.42 L, Mean Corpuscular Volume 99.1 H, Mean Corpuscular Hemoglobin 33.1 H, Mean Corpuscular Hemoglobin Concent 33.4, Red Cell Distribution Width 14.3, Neutrophils (%) (Auto) 68.4 H, Lymphocytes (%) (Auto) 16.2 L, Monocytes (%) (Auto) 6.2 H, Eosinophils (%) (Auto) 6.3 H, Basophils (%) (Auto) 1.1 H, Neutrophils # (Auto) 4.5, Lymphocytes # (Auto) 1.2 L, Monocytes # (Auto) 0.4, Eosinophils # (Auto) 0.4, Basophils # (Auto) 0.1, Calcium Level 8.0 L Microbiology Microbiology 01/08/17 Blood Culture - Preliminary, Resulted No Growth after 72 hours. All specime... 01/08/17 Blood Culture - Preliminary, Resulted No Growth after 72 hours. All specime... 01/09/17 Gram Stain - Final, Complete 01/09/17 Sputum Culture - Final, Complete 01/08/17 MRSA Screen - Final, Complete 01/08/17 Urine Culture - Final, Complete Klebsiella Oxytoca LALDIN,SHERRY S. MD January 13, 2017 08:30
[2017-01-13] MEDS: MIRALAX *UNIT DOSE* 17GM PACKET PO SCH (09:00)
[2017-01-13] MEDS: FUROSEMIDE 40 MG TAB PO SCH (09:40)
[2017-01-13] MEDS: OMEPRAZOLE 20 MG CAP PO SCH (09:40)
[2017-01-13] MEDS: ESCITALOPRAM OXALATE 10 MG TAB (LEXAPRO) PO SCH (09:40)
[2017-01-13] MEDS: BISACODYL 5 MG TAB PO SCH (09:40)
[2017-01-13] MEDS: guaiFENesin 200 MG TAB PO SCH ×3 (09:40→21:42)
[2017-01-13] MEDS: ATENOLOL 25 MG TAB PO SCH (09:41)
[2017-01-13 14:00] VITALS: BP 135/69
[2017-01-13] MEDS: SENNA 8.6 MG TAB (SENOKOT) PO SCH (21:42)
[2017-01-13] MEDS: SIMVASTATIN 20 MG TAB PO SCH (21:42)
[2017-01-13 22:00] VITALS: BP 112/60; O2SAT 93
[2017-01-14] MEDS: MEROPENEM INJ 1 GM in D5W MINI-BAG PLUS 100 ML IV SCH ×3 (02:33→17:30)
[2017-01-14 06:00] VITALS: BP 122/70
[2017-01-14] MEDS: HEPARIN SOD (PORCINE) 5000 UNITS/ML VIAL SQ SCH ×3 (06:14→21:37)
[2017-01-14 06:47] LABS: BASO # 0.1 K/mm3 (0.0-0.2); BASO % 0.8 % (0.0-1.0); EOS # 0.5 K/mm3 (0.0-0.50); EOS % 6.7 % (0.0-3.0); LARGE UNSTAINED CELL # 0.2 K/mm3 (0.0-0.4); LARGE UNSTAINED CELL % 2.2 % (0.0-4.0); LYMPH % 14.3 % (24.0-44.0); MEAN CORPUSCULAR HEMOGLOBIN 33.9 pg (27.0-33.0); MEAN CORPUSCULAR HGB CONC 33.5 g/dl (32.0-36.5); MEAN CORPUSCULAR VOLUME 101.1 fl (80.0-96.0); MONO # 0.5 K/mm3 (0.0-0.8); MONO % 6.5 % (0.0-5.0); NEUTROPHILS % 69.5 % (36.0-66.0); PLATELET COUNT, AUTOMATED 236 k/mm3 (150-450); RED CELL DISTRIBUTION WIDTH 14.1 % (11.5-14.5); WHITE BLOOD COUNT 7.1 K/mm3 (4.0-10.0)
[2017-01-14 07:07] LABS: ANION GAP 7 MEQ/L (8-16); BLOOD UREA NITROGEN 19 MG/DL (7-18); CARBON DIOXIDE LEVEL 29 MEQ/L (21-32); CHLORIDE LEVEL 104 MEQ/L (98-107); CREATININE FOR GFR 0.49 MG/DL (0.70-1.30); GLOMERULAR FILTRATION RATE > 60.0 (>35); GLUCOSE, FASTING 97 MG/DL (83-110); POTASSIUM SERUM 3.9 MEQ/L (3.5-5.1); SODIUM LEVEL 140 MEQ/L (136-145)
[2017-01-14] MEDS: guaiFENesin 200 MG TAB PO SCH ×3 (10:19→21:37)
[2017-01-14] MEDS: ESCITALOPRAM OXALATE 10 MG TAB (LEXAPRO) PO SCH (10:20)
[2017-01-14] MEDS: BISACODYL 5 MG TAB PO SCH (10:20)
[2017-01-14] MEDS: MIRALAX *UNIT DOSE* 17GM PACKET PO SCH (10:20)
[2017-01-14] MEDS: OMEPRAZOLE 20 MG CAP PO SCH (10:20)
[2017-01-14] MEDS: FUROSEMIDE 40 MG TAB PO SCH (10:20)
[2017-01-14 10:21] VITALS: BP 122/70
[2017-01-14] MEDS: ATENOLOL 25 MG TAB PO SCH (10:21)
[2017-01-14] MEDS ORDERED: ATEN25TA PO (11:37)
--- NOTE | 2017-01-14 11:48 | DS.PDOC ---
Discharge Summary General Date of Admission Jan 02, 2017 at 17:29 Date of Discharge Anticipated for 01/16/16 Specialist/Consultants Involve: Refugio Wong MD Discharge Summary PROCEDURES PERFORMED DURING STAY: [None]. DISCHARGE DIAGNOSES: 1. Pelvic fracture - right superior/inferior pubic ramus fx, right sacral fracture - no surgical intervention 2. HTN 3. chronic anemia 4. HCAP 5. GERD 6. dyslipidemia 7. paroxysmal afib 8. TIA 9. Depression COMPLICATIONS/CHIEF COMPLAINT: Fall;Pelvic Fx. HISTORY OF PRESENT ILLNESS: Mechanical fall with subsequent pain with ambulation - found to have pelvic fracture on imaging in ER HOSPITAL COURSE: 81-year old male sustained mechanical fall at home after losing his balance trying to reach for an object on a shelf. Sustained trauma to right hip. Found to have pelvic fracture on imaging. Ortho consulted, with recs for medical management including rehab. Plan was for discharge to subacute rehab, however he developed significant respiratory distress, and found to have pneumonia. With antibiotic therapy he was successfully weaned off supplemental oxygen. Patient will have completed appropriate antimicrobial therapy by the end of today 01/14/17, and is anticipated to be stable for discharge to short term rehab at [facility] on 01/15/17. Discussed with ortho for anticoagulation, given the size of his hematoma aspirin 81mg daily 4-6 weeks, and will be re-evaluated with his follow up appointment with orthopedics. DISCHARGE MEDICATIONS: Please see below. ALLERGIES: Please see below. PHYSICAL EXAMINATION ON DISCHARGE: VITAL SIGNS: Please see below. GENERAL: NAD, elderly HEENT: NC/AT, EOMI, PERRL NECK: supple CARDIOVASCULAR EXAMINATION: +S1S2, systolic murmur RESPIRATORY EXAMINATION: CTA B/L ABDOMINAL EXAMINATION: soft, NT, +BS EXTREMITIES: no edema PSYCHIATRIC EXAMINATION: AAOx3 LABORATORY DATA: Please see below. IMAGING: CT Chest 1. New patchy right lobe opacity in the posterior basal segment with air bronchograms suggesting acute infectious etiology. Certainly, a neoplastic process can not be excluded. 2. Chronic lung batres changes as described above. 3. Other chronic changes as described above. 4. Healing right 7th rib fracture, correlated clinically. ACTIVITY: As per PT DIET: 2 gram sodium DISCHARGE PLAN: Discharge anticipated to [facility] for STR 01/15/17 DISCHARGE INSTRUCTIONS: 1. Follow up PCP in 3-5 days. 2. Further direction as per receiving facility. DISCHARGE CONDITION: [Stable]. TIME SPENT ON DISCHARGE: Greater than 30 minutes. Vital Signs/I&Os Vital Signs Date Time Temp Pulse Resp B/P (MAP) Pulse Ox O2 Delivery O2 Flow Rate FiO2 01/14/17 10:21 109 122/70 01/14/17 06:00 99.5 18 92 Room Air 01/09/17 08:02 2.0 I&O- Last 24 Hours up to 6 AM 01/14/17 06:00 Intake Total 800 ml Output Total 1025 ml Balance -225 ml Laboratory Data Labs 24H Laboratory Tests 2 01/14/17 06:28: White Blood Count 7.1, Red Blood Count 3.37L, Hemoglobin 11.4L, Hematocrit 34.1L , Mean Corpuscular Volume 101.1H, Mean Corpuscular Hemoglobin 33.9H, Mean Corpuscular Hemoglobin Concent 33.5, Red Cell Distribution Width 14.1, Platelet Count 236, Neutrophils (%) (Auto) 69.5H, Lymphocytes (%) (Auto) 14.3L, Monocytes (%) (Auto) 6.5H, Eosinophils (%) (Auto) 6.7H, Basophils (%) (Auto) 0.8 , Neutrophils # (Auto) 5.0, Lymphocytes # (Auto) 1.0L, Monocytes # (Auto) 0.5, Eosinophils # (Auto) 0.5, Basophils # (Auto) 0.1, Large Unclassified Cells % 2.2 , Large Unclassified Cells # 0.2, Anion Gap 7L, Glomerular Filtration Rate > 60.0, Blood Urea Nitrogen 19H, Creatinine 0.49L, Sodium Level 140, Potassium Level 3.9, Chloride Level 104, Carbon Dioxide Level 29, Calcium Level 8.0L CBC/BMP Laboratory Tests 01/14/17 06:28 Red Blood Count 3.37 L, Mean Corpuscular Volume 101.1 H, Mean Corpuscular Hemoglobin 33.9 H, Mean Corpuscular Hemoglobin Concent 33.5, Red Cell Distribution Width 14.1, Neutrophils (%) (Auto) 69.5 H, Lymphocytes (%) (Auto) 14.3 L, Monocytes (%) (Auto) 6.5 H, Eosinophils (%) (Auto) 6.7 H, Basophils (%) (Auto) 0.8, Neutrophils # (Auto) 5.0, Lymphocytes # (Auto) 1.0 L, Monocytes # ( Auto) 0.5, Eosinophils # (Auto) 0.5, Basophils # (Auto) 0.1, Calcium Level 8.0 L Microbiology Microbiology 01/08/17 Blood Culture - Final, Complete NO GROWTH AFTER 5 DAYS 01/08/17 Blood Culture - Final, Complete NO GROWTH AFTER 5 DAYS 01/09/17 Gram Stain - Final, Complete 01/09/17 Sputum Culture - Final, Complete 01/08/17 MRSA Screen - Final, Complete 01/08/17 Urine Culture - Final, Complete Klebsiella Oxytoca Discharge Medications Scheduled (Restasis) 0.05 % Emu, 1 DROP OU BID, (Reported) Aspirin (Aspirin 81) 81 Mg Tab, 81 MG PO DAILY Atenolol (Atenolol) 25 Mg Tab, 25 MG PO DAILY B1/B2/B3/B5/B6 (Vitamin B Complex) 1 Tab Tab, 1 TAB PO DAILY, (Reported) Bimatoprost (Lumigan) 50 Drop/2.5 Ml Veronica, 1 DROP OU QHS, (Reported) Bisacodyl (Bisacodyl EC) 5 Mg Tab, 10 MG PO DAILY, (Reported) Escitalopram Oxalate (Lexapro) 10 Mg Tab, 10 MG PO DAILY, (Reported) Omeprazole (Omeprazole) 20 Mg Cap, 20 MG PO DAILY, (Reported) Senna (Senna Lax) 8.6 Mg Tab, 2 TAB PO QHS, (Reported) Simvastatin (Simvastatin) 20 Mg Tab, 20 MG PO QHS, (Reported) Scheduled PRN Furosemide (Furosemide) 40 Mg Tab, 40 MG PO DAILY PRN for BP > 110, (Reported) Allergies Coded Allergies: No Known Allergies (Verified , 05/11/04) SHERRY OCHOA MD January 14, 2017 11:48
[2017-01-14 14:00] VITALS: BP 104/58
[2017-01-14] MEDS: SIMVASTATIN 20 MG TAB PO SCH (21:37)
[2017-01-14] MEDS: SENNA 8.6 MG TAB (SENOKOT) PO SCH (21:37)
[2017-01-14 22:00] VITALS: BP 104/57
[2017-01-15] MEDS: MEROPENEM INJ 1 GM in D5W MINI-BAG PLUS 100 ML IV SCH ×2 (01:59→09:42)
[2017-01-15] MEDS: HEPARIN SOD (PORCINE) 5000 UNITS/ML VIAL SQ SCH (05:41)
[2017-01-15 06:00] VITALS: BP 117/78
[2017-01-15 08:30] VITALS: BP 115/75
[2017-01-15] MEDS ORDERED: ASPI1TAB PO (09:29)
[2017-01-15] MEDS: OMEPRAZOLE 20 MG CAP PO SCH (09:39)
[2017-01-15] MEDS: BISACODYL 5 MG TAB PO SCH (09:40)
[2017-01-15] MEDS: ESCITALOPRAM OXALATE 10 MG TAB (LEXAPRO) PO SCH (09:40)
[2017-01-15] MEDS: ATENOLOL 25 MG TAB PO SCH (09:41)
[2017-01-15] MEDS: FUROSEMIDE 40 MG TAB PO SCH (09:41)
[2017-01-15] MEDS: MIRALAX *UNIT DOSE* 17GM PACKET PO SCH (09:41)
[2017-01-15] MEDS: guaiFENesin 200 MG TAB PO SCH (09:42)
== END 2017-01-15 11:15 | DRG 551 ==
LOC: M ED 16:05 → M ED INP 17:29 → M MS5PR 18:50
PROVIDERS: ADMIT Internal Medicine; ATTEND Hospitalist
DX: S32.10XA Unspecified fracture of sacrum, initial encounter for closed fracture (principal); J18.9 Pneumonia, unspecified organism; S32.591A Other specified fracture of right pubis, initial encounter for closed fracture; S32.511A Fracture of superior rim of right pubis, initial encounter for closed fracture; S32.601A Unspecified fracture of right ischium, initial encounter for closed fracture; I27.2 Other secondary pulmonary hypertension; I48.0 Paroxysmal atrial fibrillation; D63.8 Anemia in other chronic diseases classified elsewhere; M43.16 Spondylolisthesis, lumbar region; Y95 Nosocomial condition; K21.9 Gastro-esophageal reflux disease without esophagitis; K59.09 Other constipation; E78.5 Hyperlipidemia, unspecified; F32.9 Major depressive disorder, single episode, unspecified; Z79.82 Long term (current) use of aspirin; Z79.899 Other long term (current) drug therapy; Z85.820 Personal history of malignant melanoma of skin; Z86.73 Personal history of transient ischemic attack (TIA), and cerebral infarction without residual deficits; W01.0XXA Fall on same level from slipping, tripping and stumbling without subsequent striking against object, initial encounter; Y92.012 Bathroom of single-family (private) house as the place of occurrence of the external cause; Y93.01 Activity, walking, marching and hiking; Y99.9 Unspecified external cause status; Z82.3 Family history of stroke; Z82.49 Family history of ischemic heart disease and other diseases of the circulatory system; Z80.52 Family history of malignant neoplasm of bladder; Z87.891 Personal history of nicotine dependence

== ENCOUNTER → 2017-01-21 | Outpatient (REF) ==
[~2017-01-21] MED LIST: ASPI1TAB PO; ATEN25TA; ATEN25TA PO; BENA10TA2 PO; BIMA01SOL OU; BISA5TAB4; BISAC5TA PO; ESCI10TA2; FURO40TA2 PO; LEXA1TAB PO; OMEP20CA3; OMEP20CA3 PO; POTA20TA; POTA20TA PO; REST0.05 OU; SENN8.6C PO; SENN8.6T10 PO; SIMV20TA2; SIMV20TA2 PO; VITATAB11 PO; ZOCO20TA PO
[2017-01-21 08:59] LABS: MEAN CORPUSCULAR HEMOGLOBIN 33.2 pg (27.0-33.0); MEAN CORPUSCULAR HGB CONC 32.5 g/dl (32.0-36.5); MEAN CORPUSCULAR VOLUME 102.2 fl (80.0-96.0); RED CELL DISTRIBUTION WIDTH 14.4 % (11.5-14.5)
[2017-01-21 09:22] LABS: ANION GAP 9 MEQ/L (8-16); BLOOD UREA NITROGEN 25 MG/DL (7-18); CALCIUM LEVEL 8.7 MG/DL (8.8-10.2); CARBON DIOXIDE LEVEL 26 MEQ/L (21-32); CHLORIDE LEVEL 105 MEQ/L (98-107); CREATININE FOR GFR 0.72 MG/DL (0.70-1.30); GLOMERULAR FILTRATION RATE > 60.0 (>35); GLUCOSE, FASTING 157 MG/DL (83-110); SODIUM LEVEL 140 MEQ/L (136-145)
== END ==
LOC: SKLAB2 08:30
DX: R60.0 Localized edema (principal)

== ENCOUNTER → 2017-01-28 | Outpatient (REF) ==
[2017-01-28 08:32] LABS: ANION GAP 8 MEQ/L (8-16); BLOOD UREA NITROGEN 23 MG/DL (7-18); CALCIUM LEVEL 8.2 MG/DL (8.8-10.2); CARBON DIOXIDE LEVEL 30 MEQ/L (21-32); CHLORIDE LEVEL 105 MEQ/L (98-107); CREATININE FOR GFR 0.62 MG/DL (0.70-1.30); GLOMERULAR FILTRATION RATE > 60.0 (>35); GLUCOSE, FASTING 93 MG/DL (83-110); POTASSIUM SERUM 3.7 MEQ/L (3.5-5.1); SODIUM LEVEL 143 MEQ/L (136-145)
== END ==
LOC: SKLAB2 08:55
DX: R60.0 Localized edema (principal)

== ENCOUNTER → 2017-05-16 | Outpatient (CLI) | payer MEDICARE, OTHER ==
[~2017-05-16] MED LIST changes: -BENA10TA2 PO; +BENA10TA6 PO; +SENN1TAB10 PO; -SENN8.6T10 PO
[2017-05-16 14:36] LABS: ALBUMIN 3.1 GM/DL (3.2-5.2); ANION GAP 10 MEQ/L (8-16); BLOOD UREA NITROGEN 26 MG/DL (7-18); CALCIUM LEVEL 8.9 MG/DL (8.8-10.2); CARBON DIOXIDE LEVEL 29 MEQ/L (21-32); CHLORIDE LEVEL 106 MEQ/L (98-107); CREATININE FOR GFR 0.72 MG/DL (0.70-1.30); GLOMERULAR FILTRATION RATE > 60.0 (>35); GLUCOSE, FASTING 128 MG/DL (83-110); MAGNESIUM LEVEL 2.1 MG/DL (1.8-2.4); SODIUM LEVEL 145 MEQ/L (136-145)
== END ==
LOC: M WUC 11:51
PROVIDERS: ATTEND Physician Assistant
DX: I50.33 Acute on chronic diastolic (congestive) heart failure (principal); I42.0 Dilated cardiomyopathy

== ENCOUNTER → 2018-01-23 | Outpatient (CLI) | payer MEDICARE, OTHER ==
[2018-01-23 17:27] LABS: ALBUMIN 3.1 GM/DL (3.2-5.2); ANION GAP 10 MEQ/L (8-16); BLOOD UREA NITROGEN 22 MG/DL (7-18); CALCIUM LEVEL 8.8 MG/DL (8.8-10.2); CARBON DIOXIDE LEVEL 25 MEQ/L (21-32); CHLORIDE LEVEL 109 MEQ/L (98-107); CREATININE FOR GFR 0.81 MG/DL (0.70-1.30); GLOMERULAR FILTRATION RATE > 60.0 (>35); GLUCOSE, FASTING 121 MG/DL (70-100); MAGNESIUM LEVEL 2.1 MG/DL (1.8-2.4); PHOSPHORUS LEVEL 3.4 MG/DL (2.5-4.9); POTASSIUM SERUM 4.6 MEQ/L (3.5-5.1); SODIUM LEVEL 144 MEQ/L (136-145)
== END ==
LOC: M WUC 14:45
DX: I50.32 Chronic diastolic (congestive) heart failure (principal); I48.2 Chronic atrial fibrillation
CPT/HCPCS: 83735

== ENCOUNTER → 2018-04-28 | Outpatient (CLI) | payer MEDICARE, OTHER ==
[2018-04-28 12:53] LABS: ANION GAP 9 MEQ/L (8-16); BLOOD UREA NITROGEN 24 MG/DL (7-18); CALCIUM LEVEL 8.8 MG/DL (8.8-10.2); CARBON DIOXIDE LEVEL 30 MEQ/L (21-32); CHLORIDE LEVEL 107 MEQ/L (98-107); CREATININE FOR GFR 0.88 MG/DL (0.70-1.30); GLOMERULAR FILTRATION RATE > 60.0 (>35); GLUCOSE, FASTING 134 MG/DL (70-100); POTASSIUM SERUM 3.7 MEQ/L (3.5-5.1); SODIUM LEVEL 146 MEQ/L (136-145)
== END ==
LOC: M WUC 10:50
DX: I50.32 Chronic diastolic (congestive) heart failure (principal)
CPT/HCPCS: 80048

== ENCOUNTER → 2018-08-21 | Outpatient (CLI) | payer MEDICARE, OTHER ==
[2018-08-21 17:00] LABS: ANION GAP 7 MEQ/L (8-16); BLOOD UREA NITROGEN 21 MG/DL (7-18); CALCIUM LEVEL 8.9 MG/DL (8.8-10.2); CARBON DIOXIDE LEVEL 32 MEQ/L (21-32); CHLORIDE LEVEL 103 MEQ/L (98-107); CREATININE FOR GFR 0.89 MG/DL (0.70-1.30); GLOMERULAR FILTRATION RATE > 60.0 (>35); GLUCOSE, FASTING 108 MG/DL (70-100); SODIUM LEVEL 142 MEQ/L (136-145)
== END ==
LOC: M WUC 10:59
DX: I50.32 Chronic diastolic (congestive) heart failure (principal); I48.2 Chronic atrial fibrillation
CPT/HCPCS: 83735

== ENCOUNTER → 2018-10-13 | Outpatient (CLI) | payer MEDICARE, OTHER ==
[~2018-10-13] MED LIST changes: +KLOR20TA42; +KLOR20TA42 PO; -POTA20TA; -POTA20TA PO
--- NOTE | 2018-10-13 12:31 | REP ---
Chest two views HISTORY: Bronchiectasis Comparison: 01/02/2017 There is elevation of the right hemidiaphragm. An increase in interstitial markings is present in the lungs consistent with chronic interstitial change. Patchy density is present in the right lower lobe consistent with atelectasis or infiltrate. The cardiac silhouette is enlarged. The pulmonary vasculature is normal in appearance. There is an old compression fracture of a lower thoracic vertebral body. IMPRESSION: 1. Chronic interstitial change. 2. Right lower lobe atelectasis or infiltrate. 3. Cardiomegaly. Electronically Signed by Eliud Nelson MD 10/13/2018 12:23 P
== END ==
LOC: M WUC 12:06
PROVIDERS: ATTEND Internal Medicine
DX: J47.9 Bronchiectasis, uncomplicated (principal)

== ENCOUNTER 2018-10-24 04:14 | Inpatient (IN) | payer MEDICARE, OTHER ==
[~2018-10-24] VITALS: Ht 177.8 cm; Wt 91.4 kg
[2018-10-24 05:09] LABS: BASO # 0.1 10^3/uL (0.0-0.2); BASO % 1.1 % (0.0-1.0); EOS # 0.3 10^3/uL (0.0-0.50); EOS % 3.6 % (0.0-3.0); HEMATOCRIT 34.9 % (42.0-52.0); HEMOGLOBIN 11.2 g/dl (13.5-17.5); LYMPH # 0.8 10^3/uL (1.5-4.5); LYMPH % 11.4 % (24.0-44.0); MEAN CORPUSCULAR HGB CONC 32.1 g/dl (32.0-36.5); MEAN CORPUSCULAR VOLUME 96.7 fl (80.0-96.0); MONO # 0.9 10^3/uL (0.0-0.8); MONO % 12.6 % (0.0-5.0); NEUTROPHILS # 5.1 10^3/uL (1.8-7.7); NEUTROPHILS % 70.7 % (36.0-66.0); PLATELET COUNT, AUTOMATED 183 10^3/uL (150-450); RED BLOOD COUNT 3.61 10^6/uL (4.30-6.10); WHITE BLOOD COUNT 7.2 10^3/uL (4.0-10.0)
[2018-10-24 05:38] LABS: ALBUMIN 2.9 GM/DL (3.2-5.2); ALT/SGPT 22 U/L (12-78); BILIRUBIN,DIRECT 0.4 MG/DL (0.0-0.2); BILIRUBIN,TOTAL 0.9 MG/DL (0.2-1.0); BLOOD UREA NITROGEN 28 MG/DL (7-18); CALCIUM LEVEL 8.7 MG/DL (8.8-10.2); CARBON DIOXIDE LEVEL 31 MEQ/L (21-32); CHLORIDE LEVEL 106 MEQ/L (98-107); CPK CREATINE PHOSPHOKINASE 66 U/L (39-308); CREATININE FOR GFR 0.76 MG/DL (0.70-1.30); GLOMERULAR FILTRATION RATE > 60.0 (>35); GLUCOSE, FASTING 104 MG/DL (70-100); LIPASE 118 U/L (73-393); MB/CK RELATIVE INDEX 2.42 (< OR =4); POTASSIUM SERUM 4.2 MEQ/L (3.5-5.1); SODIUM LEVEL 145 MEQ/L (136-145); TOTAL PROTEIN 6.8 GM/DL (6.4-8.2); TROPONIN I 0.02 NG/ML (< 0.10)
[2018-10-24 05:59] LABS: INFLUENZA A AMPLIFICATION NEGATIVE (NEGATIVE); INFLUENZA B AMPLIFICATION NEGATIVE (NEGATIVE)
--- NOTE | 2018-10-24 07:35 | REPVR ---
EXAM: CT Chest Without Contrast EXAM DATE/TIME: 10/24/2018 5:04 AM CLINICAL HISTORY: 82 years old, male; Signs and symptoms; Cough; Additional info: Cough, R/O rll infiltrate TECHNIQUE: Axial computed tomography images of the chest without intravenous contrast. All CT scans at this facility use at least one of these dose optimization techniques: automated exposure control; mA and/or kV adjustment per patient size (includes targeted exams where dose is matched to clinical indication); or iterative reconstruction. Coronal and sagittal reformatted images were created and reviewed. MIP reconstructed images were created and reviewed. COMPARISON: CT Chest without contrast 01/08/2017 1:02 PM FINDINGS: Lungs: There is peripheral predominant interstitial thickening in both lungs, similar to the prior exam. There is volume loss and consolidation in the right lung, particularly in the right lower lobe, related to the elevated diaphragm, without significant change Pleural space: There are no pleural effusions present. Heart: Pericardial calcifications are again noted. There is moderate cardiomegaly. There is severe atherosclerotic calcification of the coronary arteries. Pulmonary arteries: There is enlargement of central pulmonary arteries, with the pulmonary trunk measuring 3.7 cm, similar to the prior exam. Aorta: The aorta demonstrates moderate atherosclerotic calcification. There is enlargement of the ascending aorta, measuring 4.4 cm compared to 4.3 cm previously. Lymph nodes: No lymphadenopathy is seen. Bones/joints: Degenerative endplate changes are seen at multiple levels in the visualized spine. Soft tissues: There is nonspecific gynecomastia, left more than right. Liver: The liver is small with a nodular surface, consistent with cirrhosis. Gallbladder and bile ducts: Gallstones are present. Upper abdomen: There is again elevation of the right diaphragm. IMPRESSION: 1. Persistent elevation of the right diaphragm with associated volume loss and consolidation in the right lung, without significant change from prior exam. 2. Peripheral interstitial thickening consistent with chronic interstitial lung disease, without significant change from the prior exam. 3. Enlargement of the central pulmonary arteries again noted, consistent with pulmonary hypertension. 4. Enlargement of the ascending aorta to 4.4 cm, compared to 4.3 cm previously. Electronically signed by: Sangeetha Hayes On 10/24/2018 07:35:26 AM
--- NOTE | 2018-10-24 07:56 | REP ---
Portable chest, 04:58 a.m., single AP view, the patient semi upright: Comparisons are 01/04/2015 and 10/13/2018. There is chronic elevation of the right hemidiaphragm with the aerated bowel loops beneath the elevated hemidiaphragm. There is chronic mild interstitial coarsening compatible with fibrosis. There are no focal infiltrates or effusions. There is chronic cardiomegaly. Impression: Chronic findings as described. No acute infiltrates or effusions. Electronically Signed by Ezekiel Wharton MD 10/24/2018 07:49 A
[2018-10-24] MEDS ORDERED: cefTRIAXone SOD 1 GM in D5W MINI-BAG PLUS 50 ML IV ONE (08:00)
[2018-10-24] MEDS: IPRATROPIUM 0.5MG/ALBUTEROL 2.5MG INH SOL UD 3ML (DUONEB)(J7620) NEB SCH ×3 (08:00→20:00)
[2018-10-24] MEDS ORDERED: AZITHROMYCIN INJ 500 MG, VIAL MATE ADAPTER 1 EACH in D5W 250 ML IV ONE (08:00)
[2018-10-24] MEDS ORDERED: TORS20TA2 PO (08:39)
[2018-10-24] MEDS ORDERED: ADV250INH INH (08:39)
[2018-10-24] MEDS ORDERED: DOXY100T PO (08:39)
[2018-10-24] MEDS ORDERED: ASPI1TAB PO (08:39)
[2018-10-24] MEDS ORDERED: ATEN25TA PO (08:39)
[2018-10-24] MEDS ORDERED: BENA10TA6 PO (08:39)
[2018-10-24] MEDS ORDERED: POTA1TAB14 PO (08:39)
[2018-10-24] MEDS ORDERED: VENTAER INH (08:39)
[2018-10-24] MEDS ORDERED: IPRATROPIUM 0.5MG/ALBUTEROL 2.5MG INH SOL UD 3ML (DUONEB)(J7620) NEB PRN (08:45)
[2018-10-24] MEDS ORDERED: ONDANSETRON 4MG/2ML VIAL (J2405) IV PRN (09:00)
[2018-10-24] MEDS: ADVAIR HFA 115/21MCG INHALER INH SCH ×2 (09:00→21:05)
[2018-10-24] MEDS: ASPIRIN 81 MG ENTERIC TAB PO SCH (12:10)
[2018-10-24] MEDS: ATENOLOL 12.5MG PER 1/2 TABLET PO SCH (12:10)
[2018-10-24] MEDS: VITAMIN B COMPLEX/VIT C CAP PO SCH (12:10)
[2018-10-24] MEDS: BISACODYL 5 MG TAB PO SCH (12:10)
[2018-10-24] MEDS: BENAZEPRIL 5 MG TAB PO SCH (12:11)
[2018-10-24] MEDS: guaiFENesin ER 600 MG TAB PO SCH ×2 (12:11→21:07)
[2018-10-24] MEDS: ESCITALOPRAM OXALATE 10 MG TAB (LEXAPRO) PO SCH (12:11)
[2018-10-24] MEDS: TORSEMIDE 20 MG TAB PO SCH (12:11)
[2018-10-24] MEDS: OMEPRAZOLE 20 MG CAP PO SCH (12:11)
[2018-10-24] MEDS: HEPARIN SOD (PORCINE) 5000 UNITS/ML VIAL SC SCH ×2 (12:12→21:07)
[2018-10-24] MEDS: POTASSIUM CHLORIDE 10 MEQ SR TABLET PO SCH (12:12)
[2018-10-24 14:00] VITALS: BP 96/55
[2018-10-24 14:08] LABS: MB/CK RELATIVE INDEX 2.91 (< OR =4); TROPONIN I 0.03 NG/ML (< 0.10)
--- NOTE | 2018-10-24 17:55 | HPE ---
DATE OF ADMISSION: 10/24/2018 PRIMARY CARE PROVIDER: Dr. Abdiaziz Mann CHIEF COMPLAINT: Shortness of breath. 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 Patient not on oxygen at home. Denies any fevers or chills. Denies any sick contacts. Denies any chest pain, pressure, or discomfort. Reported shortness of breath. Is requiring oxygen in the emergency room. ALLERGIES: No known drug allergies. PAST MEDICAL HISTORY: 1. Atrial fibrillation. 2. Malignant melanoma of the left forearm. 3. Aortic valve sclerosis. 4. Mitral valve calcification. 5. Pulmonary artery hypertension. 6. Urinary retention. 7. History of hemorrhagic stroke 10 years ago and ischemic stroke 20 years ago. 8. History of congestive heart failure (CHF) with bilateral lower extremity edema, baseline ambulating with a walker. PAST SURGICAL HISTORY: Removal of malignant melanoma. FAMILY HISTORY: Mother with bladder cancer. Father with stroke. SOCIAL HISTORY: Former smoker. Quit smoking in 1980s. Smokes half a pack per day since teenage years. Denies alcohol use. Lives at home. Baseline ambulating with a walker. REVIEW OF SYSTEMS: Reported shortness of breath and coughing productive of brown sputum. All other review of systems is negative. HOME MEDICATIONS: - Ventolin inhaler every 4 hours as needed - aspirin 81 mg by mouth daily - atenolol 12.5 mg by mouth daily - vitamin B complex by mouth daily - benazepril 10 mg by mouth daily - Lumigan eyedrops at bedtime - bisacodyl 10 mg by mouth daily - doxycycline 100 mg by mouth twice a day - Lexapro 10 mg by mouth daily - omeprazole 20 mg by mouth daily - potassium chloride 40 mEq by mouth daily - Restasis eyedrops twice a day - Advair Diskus 250/50 mcg inhalation twice a day - Senokot 8.6 mg two tablets by mouth at bedtime - Zocor 20 mg by mouth at bedtime - torsemide 20 mg by mouth daily PHYSICAL EXAMINATION: VITAL SIGNS: Temperature 98.3, pulse 99, respirations 79, blood pressure 108/63, pulse oximetry 96% on 2 liters nasal cannula, 88% on room air. GENERAL: Patient alert, comfortable. Mild shortness of breath. HEENT: Normocephalic, atraumatic. PULMONARY: Right-sided rhonchi. No significant wheeze. CARDIAC: Irregularly irregular, S1, S2. A 2/6 systolic murmur. ABDOMEN: Soft, nontender. Positive bowel sounds. EXTREMITIES: Edema 2+, bilateral lower extremities. EKG: Atrial fibrillation with a rate of 85. T-wave inversion in V2-V4. LABORATORY DATA: WBC 7.2, hemoglobin and hematocrit 11.2/34.9, platelets 183. Chemistry: Sodium 145, potassium 4.2, chloride 106, bicarbonate 31, BUN 28, creatinine 0.76, lactic acid 1.3. Cardiac enzymes negative times two. ASSESSMENT AND PLAN: This is an 82-year-old male patient with underlying medical history of atrial fibrillation, malignant melanoma of left forearm, aortic valve sclerosis, pulmonary artery hypertension, urinary retention, history of hemorrhagic stroke 10 years ago and history of ischemic stroke 20 years ago with mild right-sided weakness, baseline ambulating with a walker, and history of congestive heart failure (CHF), presented with cough. Patient has chronic right diaphragm elevation. Admitted with right-sided pneumonia. 1. Shortness of breath secondary to right-sided pneumonia. Rocephin and azithromycin, nebulizer treatment, Acapella, sputum, blood culture. Respiratory panel has been negative. Continue Advair. 2. Possible chronic obstructive pulmonary disease (COPD). Continue Advair nebulizer treatment. Patient does not have any wheeze. 3. History of atrial fibrillation. Patient not on any anticoagulation due to history of hemorrhagic stroke in the remote past. Continue atenolol. Telemetry monitoring. 4. Hypertension. Continue atenolol, benazepril, torsemide. 5. History of congestive heart failure (CHF). Continue torsemide. Strict intake and output. Monitor daily weight and continue beta blockers and angiotensin-converting enzyme (REJI) inhibitors. 6. Pulmonary artery hypertension. Oxygen supplementation. 7. History of ischemic stroke. Continue aspirin, atenolol, benazepril, torsemide. Will monitor closely. 8. Gastroesophageal reflux disease (GERD). Continue proton pump inhibitor (PPI). 9. Deep vein thrombosis (DVT) prophylaxis. Heparin subcutaneous. DISPOSITION: Pending clinical improvement. Physical therapy has been ordered.
[2018-10-24 20:18] VITALS: BP 90/48
[2018-10-24] MEDS ORDERED: NS 500 ML IV ONE (20:45)
[2018-10-24] MEDS ORDERED: RESTASIS 0.05% OU SCH (21:00)
[2018-10-24] MEDS ORDERED: OPTHALMIC OU SCH (21:00)
[2018-10-24] MEDS: SENNA 8.6 MG TAB (SENOKOT) PO SCH (21:07)
[2018-10-24] MEDS: LATANOPROST 0.005% OPHTH SOLN 2.5 ML OU SCH (21:07)
[2018-10-24] MEDS: SIMVASTATIN 20 MG TAB PO SCH (21:07)
[2018-10-24 22:00] VITALS: BP 92/53
[2018-10-24 22:30] VITALS: BP 90/50
[2018-10-24 23:30] VITALS: BP 84/47
[2018-10-25 01:03] VITALS: BP 90/57
[2018-10-25] MEDS: IPRATROPIUM 0.5MG/ALBUTEROL 2.5MG INH SOL UD 3ML (DUONEB)(J7620) NEB SCH ×4 (01:10→20:00)
[2018-10-25 03:19] VITALS: BP 99/50
[2018-10-25 06:00] VITALS: BP 115/56
[2018-10-25 06:30] LABS: HEMATOCRIT 31.7 % (42.0-52.0); HEMOGLOBIN 10.2 g/dl (13.5-17.5); MEAN CORPUSCULAR HEMOGLOBIN 30.7 pg (27.0-33.0); MEAN CORPUSCULAR HGB CONC 32.2 g/dl (32.0-36.5); MEAN CORPUSCULAR VOLUME 95.5 fl (80.0-96.0); PLATELET COUNT, AUTOMATED 160 10^3/uL (150-450); RED BLOOD COUNT 3.32 10^6/uL (4.30-6.10); WHITE BLOOD COUNT 7.2 10^3/uL (4.0-10.0)
[2018-10-25 06:51] LABS: BLOOD UREA NITROGEN 30 MG/DL (7-18); CALCIUM LEVEL 8.2 MG/DL (8.8-10.2); CARBON DIOXIDE LEVEL 31 MEQ/L (21-32); CHLORIDE LEVEL 108 MEQ/L (98-107); CREATININE FOR GFR 0.76 MG/DL (0.70-1.30); GLOMERULAR FILTRATION RATE > 60.0 (>35); GLUCOSE, FASTING 95 MG/DL (70-100); MAGNESIUM LEVEL 2.1 MG/DL (1.8-2.4); SODIUM LEVEL 144 MEQ/L (136-145)
[2018-10-25] MEDS: ADVAIR HFA 115/21MCG INHALER INH SCH ×2 (08:07→20:19)
[2018-10-25] MEDS: BENAZEPRIL 5 MG TAB PO SCH (09:00)
[2018-10-25] MEDS: cefTRIAXone SOD 2 GM in D5W MINI-BAG PLUS 50 ML IV SCH (09:09)
[2018-10-25] MEDS: BISACODYL 5 MG TAB PO SCH (09:27)
[2018-10-25] MEDS: VITAMIN B COMPLEX/VIT C CAP PO SCH (09:27)
[2018-10-25] MEDS: ESCITALOPRAM OXALATE 10 MG TAB (LEXAPRO) PO SCH (09:27)
[2018-10-25] MEDS: guaiFENesin ER 600 MG TAB PO SCH ×2 (09:27→21:04)
[2018-10-25] MEDS: OMEPRAZOLE 20 MG CAP PO SCH (09:27)
[2018-10-25] MEDS: ASPIRIN 81 MG ENTERIC TAB PO SCH (09:27)
[2018-10-25] MEDS: POTASSIUM CHLORIDE 10 MEQ SR TABLET PO SCH (09:28)
[2018-10-25] MEDS: TORSEMIDE 20 MG TAB PO SCH (09:28)
[2018-10-25] MEDS: HEPARIN SOD (PORCINE) 5000 UNITS/ML VIAL SC SCH ×2 (09:28→21:03)
[2018-10-25 09:29] VITALS: BP 102/51
[2018-10-25] MEDS: ATENOLOL 12.5MG PER 1/2 TABLET PO SCH (09:34)
[2018-10-25] MEDS: methylPREDNISolone INJ 125 MG/2 ML VIAL (J2930) IV SCH ×2 (10:18→17:58)
[2018-10-25] MEDS: AZITHROMYCIN INJ 500 MG, VIAL MATE ADAPTER 1 EACH in D5W 250 ML IV SCH (10:18)
[2018-10-25] MEDS: ACETAMINOPHEN TAB 650MG DOSE (2X325MG) PO PRN ×2 (11:29→21:05)
--- NOTE | 2018-10-25 18:07 | ECHO ---
DATE OF PROCEDURE: 10/25/2018 REFERRING PHYSICIAN: Dr. Kirti Carrizales INDICATION: Dyspnea. HEIGHT: 177 cm WEIGHT: 90.0 kg 2D MEASUREMENTS: Left atrium: 5.6 cm Ventricular septum: 0.79 cm Posterior wall: 0.87 cm Left ventricle diastole: 4.9 cm Aortic annulus: 2.0 cm Aortic root: 4.0 cm DOPPLER MEASUREMENTS: Trace aortic regurgitation. No aortic stenosis. Aortic valve velocity: 157 cm/s LVOT velocity: 79.1 cm/s LVOT VTI: 16.0 cm Mild mitral regurgitation. Severe tricuspid regurgitation. Estimated right ventricle systolic pressure: 55 mmHg assuming a pressure of 15 mmHg. DESCRIPTION: Rhythm was atrial fibrillation. Image quality was fair. This was a 2D, M-mode, color flow Doppler and pulse wave Doppler examination and included mitral annular tissue Doppler. No pericardial effusion. CONCLUSIONS: 1. Normal left ventricle internal dimensions and wall thickness. Normal regional left ventricular (LV) wall motion and wall thickening. Normal LV systolic function. Unable to determine LV diastolic function in the setting of atrial fibrillation. 2. Suggestive of moderate elevation of estimated right ventricle systolic pressure (55 mmHg). Normal right ventricle size and systolic function. Severe tricuspid regurgitation. Severe right atrial dilatation. 3. Severe left atrial dilatation. 4. Severe mitral annular calcification. Mild mitral regurgitation. No mitral stenosis. 5. Moderate aortic valve sclerosis of a 3-cusp aortic valve. Trace aortic regurgitation. No aortic stenosis.
--- NOTE | 2018-10-25 18:39 | IPNPDOC ---
Text Note Date of Service The patient was seen on 10/25/18. NOTE continues to have sob, and cough, denied chest pain, tolerating PO GENERAL: Patient alert, comfortable.shortness of breath. HEENT: Normocephalic, atraumatic. PULMONARY: Right-sided rhonchi. No significant wheeze. CARDIAC: Irregularly irregular, S1, S2. A 2/6 systolic murmur. ABDOMEN: Soft, nontender. Positive bowel sounds. EXTREMITIES: Edema 2+, bilateral lower extremities. ASSESSMENT AND PLAN: This is an 82-year-old male patient with underlying medical history of atrial fibrillation, malignant melanoma of left forearm, aortic valve sclerosis, pulmonary artery hypertension, urinary retention, history of hemorrhagic stroke 10 years ago and history of ischemic stroke 20 years ago with mild right-sided weakness, baseline ambulating with a walker, and history of congestive heart failure (CHF), presented with cough. Patient has chronic right diaphragm elevation. Admitted with right-sided pneumonia. 1. Shortness of breath secondary to right-sided pneumonia. Rocephin and azithromycin, nebulizer treatment, Acapella, sputum, blood culture. Respiratory panel has been negative. Continue Advair. 2. Possible acute chronic obstructive pulmonary disease (COPD) exacerbation. Continue Advair nebulizer treatment. Solumedrol added. 3. History of atrial fibrillation. Patient not on any anticoagulation due to history of hemorrhagic stroke in the remote past. Continue atenolol. Telemetry monitoring. 4. Hypertension. Continue atenolol, torsemide.Benazipril hold given low BP 5. History of congestive heart failure (CHF). Continue torsemide. Strict intake and output. Monitor daily weight and continue beta blockers. angiotensin-converting enzyme (REJI) inhibitors on hold given borderline bp 6. Pulmonary artery hypertension. Oxygen supplementation. 7. History of ischemic stroke. Continue aspirin, atenolol, torsemide. Will monitor closely. Benazepril on hold given borderline bp 8. Gastroesophageal reflux disease (GERD). Continue proton pump inhibitor (PPI). 9. Deep vein thrombosis (DVT) prophylaxis. Heparin subcutaneous. DISPOSITION: Pending clinical improvement. Physical therapy has been ordered. VS,Fishbone, I+O VS, Fishbone, I+O Laboratory Tests 10/25/18 06:14 Red Blood Count 3.32 L, Mean Corpuscular Volume 95.5, Mean Corpuscular Hemoglobin 30.7, Mean Corpuscular Hemoglobin Concent 32.2, Red Cell Distribution Width 15.2 H, Calcium Level 8.2 L Vital Signs Date Time Temp Pulse Resp B/P (MAP) Pulse Ox O2 Delivery O2 Flow Rate FiO2 10/25/18 09:34 83 102/51 10/25/18 09:29 19 98 3.0 10/25/18 06:00 98.5 10/24/18 05:16 Nasal Cannula I&O- Last 24 Hours up to 6 AM 10/25/18 06:00 Intake Total 390 ml Output Total 1900 ml Balance -1510 ml PEG EMERY MD Oct 25, 2018 18:39
--- NOTE | 2018-10-25 19:20 | ECGEPIP ---
Stationary ECG Study [facility] - ED Test Date: 2018-10-24 Pat Name: FERN CROWDER Department: Room: - Gender: M Head Of It: gt : 1935 Requested By: New Gonzalez Order Number: [id number] Reading MD: Noelle Zarate Measurements Intervals [place] Rate: 85 P: [place]: 0 QRS: -3 QRSD: 99 T: 154 QT: 382 QTc: 454 Interpretive Statements ATRIAL FIBRILLATION ST DEVIATION AND MODERATE T-WAVE ABNORMALITY, CONSIDER ANTEROLATERAL ISCHEMIA, CLINICAL CORRELATION NO PRIOR FOR COMPARISON Electronically Signed On 10-25-2018 19:20:24 EST by Noelle Zarate
[2018-10-25 20:10] VITALS: BP 100/64
[2018-10-25] MEDS: SIMVASTATIN 20 MG TAB PO SCH (21:04)
[2018-10-25] MEDS: SENNA 8.6 MG TAB (SENOKOT) PO SCH (21:04)
[2018-10-25] MEDS: LATANOPROST 0.005% OPHTH SOLN 2.5 ML OU SCH (21:06)
[2018-10-25 22:00] VITALS: BP_SYST 117; BP_SYST 99; BP_DIAS 58; BP_DIAS 71
[2018-10-26] MEDS: methylPREDNISolone INJ 125 MG/2 ML VIAL (J2930) IV SCH ×3 (01:05→21:55)
[2018-10-26] MEDS: IPRATROPIUM 0.5MG/ALBUTEROL 2.5MG INH SOL UD 3ML (DUONEB)(J7620) NEB SCH ×4 (01:39→19:56)
[2018-10-26 06:39] LABS: HEMATOCRIT 33.8 % (42.0-52.0); HEMOGLOBIN 10.5 g/dl (13.5-17.5); MEAN CORPUSCULAR HEMOGLOBIN 30.4 pg (27.0-33.0); MEAN CORPUSCULAR HGB CONC 31.1 g/dl (32.0-36.5); PLATELET COUNT, AUTOMATED 151 10^3/uL (150-450); RED BLOOD COUNT 3.45 10^6/uL (4.30-6.10); WHITE BLOOD COUNT 7.9 10^3/uL (4.0-10.0)
[2018-10-26 07:02] LABS: BLOOD UREA NITROGEN 33 MG/DL (7-18); C REACTIVE PROTEIN QUANTITATIV 2.34 MG/DL (0.00-0.30); CARBON DIOXIDE LEVEL 32 MEQ/L (21-32); CHLORIDE LEVEL 106 MEQ/L (98-107); CREATININE FOR GFR 0.81 MG/DL (0.70-1.30); GLOMERULAR FILTRATION RATE > 60.0 (>35); GLUCOSE, FASTING 147 MG/DL (70-100); MAGNESIUM LEVEL 2.4 MG/DL (1.8-2.4); POTASSIUM SERUM 4.6 MEQ/L (3.5-5.1); SODIUM LEVEL 142 MEQ/L (136-145)
[2018-10-26] MEDS: ADVAIR HFA 115/21MCG INHALER INH SCH ×2 (07:36→19:56)
[2018-10-26] MEDS: cefTRIAXone SOD 2 GM in D5W MINI-BAG PLUS 50 ML IV SCH (08:31)
[2018-10-26] MEDS: TORSEMIDE 20 MG TAB PO SCH (09:11)
[2018-10-26] MEDS: BISACODYL 5 MG TAB PO SCH (09:11)
[2018-10-26] MEDS: guaiFENesin ER 600 MG TAB PO SCH ×2 (09:11→20:08)
[2018-10-26] MEDS: VITAMIN B COMPLEX/VIT C CAP PO SCH (09:11)
[2018-10-26] MEDS: ESCITALOPRAM OXALATE 10 MG TAB (LEXAPRO) PO SCH (09:12)
[2018-10-26] MEDS: AZITHROMYCIN INJ 500 MG, VIAL MATE ADAPTER 1 EACH in D5W 250 ML IV SCH (09:12)
[2018-10-26] MEDS: ASPIRIN 81 MG ENTERIC TAB PO SCH (09:12)
[2018-10-26] MEDS: HEPARIN SOD (PORCINE) 5000 UNITS/ML VIAL SC SCH ×2 (09:12→20:08)
[2018-10-26] MEDS: POTASSIUM CHLORIDE 10 MEQ SR TABLET PO SCH (09:12)
[2018-10-26] MEDS: OMEPRAZOLE 20 MG CAP PO SCH (09:12)
[2018-10-26] MEDS: ATENOLOL 12.5MG PER 1/2 TABLET PO SCH (09:13)
[2018-10-26 14:00] VITALS: BP 103/65
--- NOTE | 2018-10-26 14:47 | IPNPDOC ---
Text Note Date of Service The patient was seen on 10/26/18. NOTE SOB and cough improved. denied chest pain, tolerating PO GENERAL: Patient alert, comfortable.shortness of breath. HEENT: Normocephalic, atraumatic. PULMONARY: Right-sided rhonchi. No significant wheeze. CARDIAC: Irregularly irregular, S1, S2. A 2/6 systolic murmur. ABDOMEN: Soft, nontender. Positive bowel sounds. EXTREMITIES: Edema 2+, bilateral lower extremities. ASSESSMENT AND PLAN: This is an 82-year-old male patient with underlying medical history of atrial fibrillation, malignant melanoma of left forearm, aortic valve sclerosis, pulmonary artery hypertension, urinary retention, history of hemorrhagic stroke 10 years ago and history of ischemic stroke 20 years ago with mild right-sided weakness, baseline ambulating with a walker, and history of congestive heart failure (CHF), presented with cough. Patient has chronic right diaphragm elevation. Admitted with right-sided pneumonia. 1. Shortness of breath secondary to right-sided pneumonia. Rocephin and azithromycin, nebulizer treatment, Acapella, sputum, blood culture. Respiratory panel has been negative. Continue Advair. 2. Possible acute chronic obstructive pulmonary disease (COPD) exacerbation. Continue Advair nebulizer treatment. Solumedrol taper as tolerated 3. History of atrial fibrillation. Patient not on any anticoagulation due to history of hemorrhagic stroke in the remote past. Continue atenolol. Telemetry monitoring. c/w atenolol 4. Hypertension. Continue atenolol, torsemide.Benazipril hold given low BP 5. History of congestive heart failure (CHF). diastolic dysfunction, right HF 2/2 to Pul HTN, Continue torsemide. Strict intake and output. Monitor daily weight and continue beta blockers. angiotensin-converting enzyme (REJI) inhibitors on hold given borderline bp 6. Pulmonary artery hypertension. Oxygen supplementation. 7. History of ischemic stroke. Continue aspirin, atenolol, torsemide. Will monitor closely. Benazepril on hold given borderline bp 8. Gastroesophageal reflux disease (GERD). Continue proton pump inhibitor (PPI). 9. Deep vein thrombosis (DVT) prophylaxis. Heparin subcutaneous. DISPOSITION: Pending clinical improvement. Physical therapy has been ordered. taper steroid VS,Fishbone, I+O VS, Fishbone, I+O Laboratory Tests 10/26/18 06:26 Red Blood Count 3.45 L, Mean Corpuscular Volume 98.0 H, Mean Corpuscular Hemoglobin 30.4, Mean Corpuscular Hemoglobin Concent 31.1 L, Red Cell Dist ribution Width 15.0 H, Calcium Level 9.0 Vital Signs Date Time Temp Pulse Resp B/P (MAP) Pulse Ox O2 Delivery O2 Flow Rate FiO2 10/26/18 14:00 98.4 118 16 103/65 (78) 97 4.5 10/24/18 05:16 Nasal Cannula I&O- Last 24 Hours up to 6 AM 10/26/18 06:00 Intake Total 1500 ml Output Total 1300 ml Balance 200 ml PEG EMERY MD Oct 26, 2018 14:47
[2018-10-26] MEDS: SIMVASTATIN 20 MG TAB PO SCH (20:08)
[2018-10-26] MEDS: LATANOPROST 0.005% OPHTH SOLN 2.5 ML OU SCH (20:08)
[2018-10-26] MEDS: SENNA 8.6 MG TAB (SENOKOT) PO SCH (20:08)
[2018-10-26 22:00] VITALS: BP 119/58
[2018-10-27] MEDS: IPRATROPIUM 0.5MG/ALBUTEROL 2.5MG INH SOL UD 3ML (DUONEB)(J7620) NEB SCH ×4 (01:31→18:22)
[2018-10-27 06:00] VITALS: BP 102/58
[2018-10-27 06:29] LABS: HEMATOCRIT 32.4 % (42.0-52.0); HEMOGLOBIN 10.3 g/dl (13.5-17.5); MEAN CORPUSCULAR HEMOGLOBIN 30.7 pg (27.0-33.0); MEAN CORPUSCULAR HGB CONC 31.8 g/dl (32.0-36.5); MEAN CORPUSCULAR VOLUME 96.4 fl (80.0-96.0); PLATELET COUNT, AUTOMATED 165 10^3/uL (150-450); RED BLOOD COUNT 3.36 10^6/uL (4.30-6.10); WHITE BLOOD COUNT 12.6 10^3/uL (4.0-10.0)
[2018-10-27 06:52] LABS: BLOOD UREA NITROGEN 41 MG/DL (7-18); C REACTIVE PROTEIN QUANTITATIV 1.35 MG/DL (0.00-0.30); CARBON DIOXIDE LEVEL 31 MEQ/L (21-32); CHLORIDE LEVEL 107 MEQ/L (98-107); CREATININE FOR GFR 0.85 MG/DL (0.70-1.30); GLOMERULAR FILTRATION RATE > 60.0 (>35); GLUCOSE, FASTING 160 MG/DL (70-100); MAGNESIUM LEVEL 2.4 MG/DL (1.8-2.4); POTASSIUM SERUM 4.7 MEQ/L (3.5-5.1); SODIUM LEVEL 141 MEQ/L (136-145)
[2018-10-27] MEDS: ADVAIR HFA 115/21MCG INHALER INH SCH ×2 (07:35→18:22)
[2018-10-27] MEDS: cefTRIAXone SOD 2 GM in D5W MINI-BAG PLUS 50 ML IV SCH (08:27)
[2018-10-27] MEDS: HEPARIN SOD (PORCINE) 5000 UNITS/ML VIAL SC SCH ×2 (08:27→20:19)
[2018-10-27] MEDS: VITAMIN B COMPLEX/VIT C CAP PO SCH (08:27)
[2018-10-27] MEDS: ATENOLOL 12.5MG PER 1/2 TABLET PO SCH (08:28)
[2018-10-27] MEDS: POTASSIUM CHLORIDE 10 MEQ SR TABLET PO SCH (08:28)
[2018-10-27] MEDS: guaiFENesin ER 600 MG TAB PO SCH ×2 (08:28→20:19)
[2018-10-27] MEDS: OMEPRAZOLE 20 MG CAP PO SCH (08:28)
[2018-10-27] MEDS: ESCITALOPRAM OXALATE 10 MG TAB (LEXAPRO) PO SCH (08:28)
[2018-10-27] MEDS: ASPIRIN 81 MG ENTERIC TAB PO SCH (08:28)
[2018-10-27] MEDS: TORSEMIDE 20 MG TAB PO SCH (08:29)
[2018-10-27] MEDS: BISACODYL 5 MG TAB PO SCH (09:00)
[2018-10-27] MEDS: AZITHROMYCIN INJ 500 MG, VIAL MATE ADAPTER 1 EACH in D5W 250 ML IV SCH (10:01)
[2018-10-27] MEDS: methylPREDNISolone INJ 125 MG/2 ML VIAL (J2930) IV SCH (10:02)
[2018-10-27 14:00] VITALS: BP 105/61
--- NOTE | 2018-10-27 16:54 | IPNPDOC ---
Text Note Date of Service The patient was seen on 10/27/18. NOTE SOB and cough improved. denied chest pain, tolerating PO GENERAL: Patient alert, comfortable.shortness of breath. HEENT: Normocephalic, atraumatic. PULMONARY: Right-sided rhonchi. No significant wheeze. CARDIAC: Irregularly irregular, S1, S2. A 2/6 systolic murmur. ABDOMEN: Soft, nontender. Positive bowel sounds. EXTREMITIES: Edema 1+, bilateral lower extremities. ASSESSMENT AND PLAN: This is an 82-year-old male patient with underlying medical history of atrial fibrillation, malignant melanoma of left forearm, aortic valve sclerosis, pulmonary artery hypertension, urinary retention, history of hemorrhagic stroke 10 years ago and history of ischemic stroke 20 years ago with mild right-sided weakness, baseline ambulating with a walker, and history of congestive heart failure (CHF), presented with cough. Patient has chronic right diaphragm elevation. Admitted with right-sided pneumonia. 1. Shortness of breath secondary to right-sided pneumonia. Rocephin and azithromycin, nebulizer treatment, Acapella, sputum, blood culture. Respiratory panel has been negative. Continue Advair. 2. acute chronic obstructive pulmonary disease (COPD) exacerbation. Continue Advair nebulizer treatment. Solumedrol taper as tolerated 3. History of atrial fibrillation. Patient not on any anticoagulation due to history of hemorrhagic stroke in the remote past. Continue atenolol. Telemetry monitoring. c/w atenolol 4. Hypertension. Continue atenolol, torsemide.Benazipril hold given low BP 5. History of congestive heart failure (CHF). diastolic dysfunction, right HF 2/2 to Pul HTN, Continue torsemide. Strict intake and output. Monitor daily weight and continue beta blockers. angiotensin-converting enzyme (REJI) inhibitors on hold given borderline bp 6. Pulmonary artery hypertension. Oxygen supplementation. 7. History of ischemic stroke. Continue aspirin, atenolol, torsemide. Will monitor closely. Benazepril on hold given borderline bp 8. Gastroesophageal reflux disease (GERD). Continue proton pump inhibitor (PPI). 9. Deep vein thrombosis (DVT) prophylaxis. Heparin subcutaneous. DISPOSITION: Pending clinical improvement. pending PT, wean O2 VS,Fishbone, I+O VS, Fishbone, I+O Laboratory Tests 10/27/18 06:10 Red Blood Count 3.36 L, Mean Corpuscular Volume 96.4 H, Mean Corpuscular Hemoglobin 30.7, Mean Corpuscular Hemoglobin Concent 31.8 L, Red Cell Distribution Width 15.0 H, Calcium Level 9.0 Vital Signs Date Time Temp Pulse Resp B/P (MAP) Pulse Ox O2 Delivery O2 Flow Rate FiO2 10/27/18 14:00 97.3 77 20 105/61 (76) 96 3.0 10/24/18 05:16 Nasal Cannula I&O- Last 24 Hours up to 6 AM 10/27/18 06:00 Intake Total 1920 ml Output Total 925 ml Balance 995 ml PEG EMERY MD Oct 27, 2018 16:54
[2018-10-27] MEDS: SENNA 8.6 MG TAB (SENOKOT) PO SCH (20:19)
[2018-10-27] MEDS: SIMVASTATIN 20 MG TAB PO SCH (20:19)
[2018-10-27] MEDS: LATANOPROST 0.005% OPHTH SOLN 2.5 ML OU SCH (20:20)
[2018-10-27 22:00] VITALS: BP 117/71
[2018-10-27] MEDS ORDERED: methylPREDNISolone INJ 125 MG/2 ML VIAL (J2930) IV SCH (22:00)
[2018-10-27] MEDS: OPTHALMIC OU SCH (22:14)
[2018-10-27] MEDS: RESTASIS 0.05% OU SCH (22:14)
[2018-10-28] MEDS: IPRATROPIUM 0.5MG/ALBUTEROL 2.5MG INH SOL UD 3ML (DUONEB)(J7620) NEB SCH ×4 (00:09→18:42)
[2018-10-28 06:00] VITALS: BP 109/67
[2018-10-28 06:09] LABS: HEMATOCRIT 33.1 % (42.0-52.0); HEMOGLOBIN 10.5 g/dl (13.5-17.5); MEAN CORPUSCULAR HEMOGLOBIN 30.8 pg (27.0-33.0); MEAN CORPUSCULAR HGB CONC 31.7 g/dl (32.0-36.5); MEAN CORPUSCULAR VOLUME 97.1 fl (80.0-96.0); PLATELET COUNT, AUTOMATED 157 10^3/uL (150-450); RED BLOOD COUNT 3.41 10^6/uL (4.30-6.10); WHITE BLOOD COUNT 10.5 10^3/uL (4.0-10.0)
[2018-10-28 06:37] LABS: BLOOD UREA NITROGEN 44 MG/DL (7-18); C REACTIVE PROTEIN QUANTITATIV 0.77 MG/DL (0.00-0.30); CALCIUM LEVEL 9.2 MG/DL (8.8-10.2); CARBON DIOXIDE LEVEL 30 MEQ/L (21-32); CHLORIDE LEVEL 105 MEQ/L (98-107); CREATININE FOR GFR 0.83 MG/DL (0.70-1.30); GLOMERULAR FILTRATION RATE > 60.0 (>35); GLUCOSE, FASTING 135 MG/DL (70-100); MAGNESIUM LEVEL 2.4 MG/DL (1.8-2.4); POTASSIUM SERUM 4.8 MEQ/L (3.5-5.1); SODIUM LEVEL 141 MEQ/L (136-145)
[2018-10-28] MEDS: ADVAIR HFA 115/21MCG INHALER INH SCH ×2 (07:29→18:42)
[2018-10-28] MEDS: cefTRIAXone SOD 2 GM in D5W MINI-BAG PLUS 50 ML IV SCH (09:21)
[2018-10-28] MEDS: HEPARIN SOD (PORCINE) 5000 UNITS/ML VIAL SC SCH ×2 (09:25→21:21)
[2018-10-28] MEDS: TORSEMIDE 20 MG TAB PO SCH (09:26)
[2018-10-28] MEDS: predniSONE 20 MG TAB PO SCH (09:26)
[2018-10-28] MEDS: ESCITALOPRAM OXALATE 10 MG TAB (LEXAPRO) PO SCH (09:26)
[2018-10-28] MEDS: guaiFENesin ER 600 MG TAB PO SCH ×2 (09:26→21:21)
[2018-10-28] MEDS: OMEPRAZOLE 20 MG CAP PO SCH (09:26)
[2018-10-28] MEDS: ASPIRIN 81 MG ENTERIC TAB PO SCH (09:26)
[2018-10-28] MEDS: BISACODYL 5 MG TAB PO SCH (09:26)
[2018-10-28] MEDS: POTASSIUM CHLORIDE 10 MEQ SR TABLET PO SCH (09:27)
[2018-10-28] MEDS: VITAMIN B COMPLEX/VIT C CAP PO SCH (09:27)
[2018-10-28] MEDS: ATENOLOL 25 MG TAB PO SCH (09:27)
[2018-10-28] MEDS: AZITHROMYCIN INJ 500 MG, VIAL MATE ADAPTER 1 EACH in D5W 250 ML IV SCH (09:28)
[2018-10-28] MEDS: OPTHALMIC OU SCH ×2 (09:29→21:22)
[2018-10-28] MEDS: RESTASIS 0.05% OU SCH ×2 (09:29→21:22)
--- NOTE | 2018-10-28 14:40 | IPNPDOC ---
Text Note Date of Service The patient was seen on 10/28/18. NOTE Subjective: Patient states his dyspnea is improving. Denies any chest pain. No palpitations. States he is participating more in physical therapy. He still gets short of breath on exertion. Objective: Vitals: (see below) General: No acute distress, laying comfortably in bed. HEENT: Moist mucous membranes. Neck: No JVD or lymphadenopathy Cardiac: Irregularly irregular Pulm: Minimal crackles at the bases as well as rhonchi bilaterally. No wheezing. No use of accessory muscles. Abd: NT/ND + BS Ext: No edema or cyanosis Labs (see below) Images: CT chest on 10/24/18 IMPRESSION: 1. Persistent elevation of the right diaphragm with associated volume loss and consolidation in the right lung, without significant change from prior exam. 2. Peripheral interstitial thickening consistent with chronic interstitial lung disease, without significant change from the prior exam. 3. Enlargement of the central pulmonary arteries again noted, consistent with pulmonary hypertension. 4. Enlargement of the ascending aorta to 4.4 cm, compared to 4.3 cm previously. Assessment/Plan 1. Acute hypoxic respiratory failure/COPD exacerbation secondary to right-sided pneumonia. On Rocephin and azithromycin, will change to by mouth antibiotic. Continue nebs. Solu-Medrol changed to prednisone. We'll continue to taper down oxygen. 2. History of atrial fibrillation no anticoagulation secondary to hemorrhagic stroke in the past. Increased dose of atenolol for better rate control. 3. Hypertension controlled continue current meds. Benazepril held given low blood pressure. 4. History of diastolic heart failure as well as pulmonary hypertension. On torsemide. Compensated. Strict I/O. 5. History of GERD on PPI 6. Ascending aorta enlargement - will need close outpt f/u with PCP. DVT prophy: Heparin subcutaneous Continue physical therapy, wean down O2 as needed. Overall prognosis guarded. VS,Fishbone, I+O VS, Fishbone, I+O Laboratory Tests 10/28/18 05:38 Red Blood Count 3.41 L, Mean Corpuscular Volume 97.1 H, Mean Corpuscular Hemoglobin 30.8, Mean Corpuscular Hemoglobin Concent 31.7 L, Red Cell Distribution Width 15.2 H, Calcium Level 9.2 Vital Signs Date Time Temp Pulse Resp B/P (MAP) Pulse Ox O2 Delivery O2 Flow Rate FiO2 10/28/18 09:27 93 109/67 10/28/18 08:00 2.0 10/28/18 06:00 97.6 19 94 10/24/18 05:16 Nasal Cannula I&O- Last 24 Hours up to 6 AM 10/28/18 05:59 Intake Total 1670 ml Output Total 625 ml Balance 1045 ml NILAY ONEILL MD Oct 28, 2018 14:40
[2018-10-28 15:00] VITALS: BP 109/59
[2018-10-28] MEDS: SENNA 8.6 MG TAB (SENOKOT) PO SCH ×2 (21:00→21:21)
[2018-10-28] MEDS: SIMVASTATIN 20 MG TAB PO SCH (21:21)
[2018-10-28] MEDS: LATANOPROST 0.005% OPHTH SOLN 2.5 ML OU SCH (21:22)
[2018-10-28 22:00] VITALS: BP 113/56
[2018-10-29] MEDS: IPRATROPIUM 0.5MG/ALBUTEROL 2.5MG INH SOL UD 3ML (DUONEB)(J7620) NEB SCH ×2 (02:00→08:00)
[2018-10-29 06:00] VITALS: BP 103/58
[2018-10-29 06:20] LABS: HEMATOCRIT 31.6 % (42.0-52.0); HEMOGLOBIN 10.1 g/dl (13.5-17.5); MEAN CORPUSCULAR HEMOGLOBIN 30.7 pg (27.0-33.0); PLATELET COUNT, AUTOMATED 135 10^3/uL (150-450); RED BLOOD COUNT 3.29 10^6/uL (4.30-6.10); WHITE BLOOD COUNT 8.5 10^3/uL (4.0-10.0)
[2018-10-29 06:38] LABS: BLOOD UREA NITROGEN 37 MG/DL (7-18); C REACTIVE PROTEIN QUANTITATIV 0.48 MG/DL (0.00-0.30); CARBON DIOXIDE LEVEL 34 MEQ/L (21-32); CHLORIDE LEVEL 104 MEQ/L (98-107); CREATININE FOR GFR 0.68 MG/DL (0.70-1.30); GLOMERULAR FILTRATION RATE > 60.0 (>35); GLUCOSE, FASTING 95 MG/DL (70-100); MAGNESIUM LEVEL 2.4 MG/DL (1.8-2.4); POTASSIUM SERUM 4.5 MEQ/L (3.5-5.1); SODIUM LEVEL 140 MEQ/L (136-145)
[2018-10-29 08:15] VITALS: BP 113/71
[2018-10-29] MEDS: cefTRIAXone SOD 2 GM in D5W MINI-BAG PLUS 50 ML IV SCH (09:18)
[2018-10-29] MEDS: HEPARIN SOD (PORCINE) 5000 UNITS/ML VIAL SC SCH (09:19)
[2018-10-29] MEDS: TORSEMIDE 20 MG TAB PO SCH (09:19)
[2018-10-29] MEDS: guaiFENesin ER 600 MG TAB PO SCH (09:19)
[2018-10-29 09:20] VITALS: BP 113/71
[2018-10-29] MEDS: predniSONE 20 MG TAB PO SCH (09:20)
[2018-10-29] MEDS: ATENOLOL 25 MG TAB PO SCH (09:20)
[2018-10-29] MEDS: ESCITALOPRAM OXALATE 10 MG TAB (LEXAPRO) PO SCH (09:20)
[2018-10-29] MEDS: ASPIRIN 81 MG ENTERIC TAB PO SCH (09:21)
[2018-10-29] MEDS: POTASSIUM CHLORIDE 10 MEQ SR TABLET PO SCH (09:21)
[2018-10-29] MEDS: VITAMIN B COMPLEX/VIT C CAP PO SCH (09:21)
[2018-10-29] MEDS: BISACODYL 5 MG TAB PO SCH (09:21)
[2018-10-29] MEDS: OMEPRAZOLE 20 MG CAP PO SCH (09:22)
[2018-10-29] MEDS: AZITHROMYCIN INJ 500 MG, VIAL MATE ADAPTER 1 EACH in D5W 250 ML IV SCH (10:28)
[2018-10-29] MEDS: ADVAIR HFA 115/21MCG INHALER INH SCH (13:46)
[2018-10-29 14:02] VITALS: BP 118/66
[2018-10-29] MEDS ORDERED: CEFD300CAP PO (14:18)
[2018-10-29] MEDS ORDERED: ATEN25TA PO (14:18)
[2018-10-29] MEDS ORDERED: AZIT-12 PO (14:18)
[2018-10-29] MEDS ORDERED: MUCI600T37 PO (14:18)
[2018-10-29] MEDS ORDERED: PRED10TA2 PO (14:20)
--- NOTE | 2018-10-29 17:02 | DS.PDOC ---
Discharge Summary General Date of Admission Oct 24, 2018 at 08:46 Date of Discharge 10/29/18 Attending Physician: NILAY ONEILL MD Discharge Summary PROCEDURES PERFORMED DURING STAY: None. ADMITTING/DISCHARGE DIAGNOSES: 1. Hypoxia/COPD exacerbation secondary to right-sided pneumonia. s/p Rocephin and azithromycin, changed to PO antibiotics. Continue nebs. Solu-Medrol changed to prednisone. We'll continue to taper down oxygen. 2. History of atrial fibrillation no anticoagulation secondary to hemorrhagic stroke in the past. On atenolol 3. Hypertension controlled continue current meds. Benazepril held given low blood pressure. 4. History of diastolic heart failure as well as pulmonary hypertension. On torsemide. Compensated. Strict I/O. 5. History of GERD on PPI 6. Ascending aorta enlargement - will need close outpt f/u with PCP. COMPLICATIONS/CHIEF COMPLAINT: Sob/cough HISTORY OF PRESENT ILLNESS/HOSPITAL COURSE: DISCHARGE MEDICATIONS: Please see below. ALLERGIES: Please see below. PHYSICAL EXAMINATION ON DISCHARGE: Vitals: (see below) General: No acute distress, laying comfortably in bed. HEENT: Moist mucous membranes. Neck: No JVD or lymphadenopathy Cardiac: Irregularly irregular Pulm: Minimal crackles at the bases as well as rhonchi bilaterally. No wheezing. No use of accessory muscles. Abd: NT/ND + BS Ext: No edema or cyanosis Images: CT chest on 10/24/18 IMPRESSION: 1. Persistent elevation of the right diaphragm with associated volume loss and consolidation in the right lung, without significant change from prior exam. 2. Peripheral interstitial thickening consistent with chronic interstitial lung disease, without significant change from the prior exam. 3. Enlargement of the central pulmonary arteries again noted, consistent with pulmonary hypertension. 4. Enlargement of the ascending aorta to 4.4 cm, compared to 4.3 cm previously. LABORATORY DATA: Please see below. PROGNOSIS: Fair to poor given comorbidities ACTIVITY: As tolerated. DIET: Low Na diet DISCHARGE PLAN/DISPOSITION: Home with home health DISCHARGE INSTRUCTIONS: 1.F/u with PCP in 1-2 weeks. Return to ED if symptoms worsen. F/u with PCP for resolution of pneumonia and f/u on aortic aneurysm. DISCHARGE CONDITION: Stable. TIME SPENT ON DISCHARGE: Greater than 30 minutes. Vital Signs/I&Os Vital Signs Date Time Temp Pulse Resp B/P (MAP) Pulse Ox O2 Delivery O2 Flow Rate FiO2 2/20/19 14:02 98.0 93 18 118/66 (83) 91 10/29/18 10:50 2.0 10/24/18 05:16 Nasal Cannula I&O- Last 24 Hours up to 6 AM 10/29/18 06:00 Intake Total 1770 ml Output Total 250 ml Balance 1520 ml Laboratory Data Labs 24H Laboratory Tests 2 10/29/18 05:55: Nucleated Red Blood Cells % (auto) 0.0, Anion Gap 2L, Glomerular Filtration Rate > 60.0, Blood Urea Nitrogen 37H, Creatinine 0.68L, Sodium Level 140, Potassium Level 4.5, Chloride Level 104, Carbon Dioxide Level 34H, Calcium Level 9.0, Magnesium Level 2.4, C-Reactive Protein, Quantitative 0.48H CBC/BMP Laboratory Tests 10/29/18 05:55 Red Blood Count 3.29 L, Mean Corpuscular Volume 96.0, Mean Corpuscular Hemoglobin 30.7, Mean Corpuscular Hemoglobin Concent 32.0, Red Cell Distribution Width 15.0 H, Calcium Level 9.0 Microbiology Microbiology 10/24/18 Blood Culture - Final, Complete NO GROWTH AFTER 5 DAYS 10/24/18 Blood Culture - Final, Complete NO GROWTH AFTER 5 DAYS 10/24/18 Respiratory Virus Panel (PCR) ([facility]) - Final, Complete Discharge Medications Scheduled (Restasis) 0.05 % Emu, 1 DROP OU BID, (Reported) Aspirin (Aspirin 81) 81 Mg Tab, 81 MG PO DAILY, (Reported) Atenolol (Atenolol) 25 Mg Tab, 25 MG PO DAILY Azithromycin (Azithromycin) 250 Mg Tab, 500 MG PO DAILY B1/B2/B3/B5/B6 (Vitamin B Complex) 1 Tab Tab, 1 TAB PO DAILY, (Reported) Bimatoprost (Lumigan) 50 Drop/2.5 Ml Veronica, 1 DROP OU QHS, (Reported) Bisacodyl (Bisacodyl EC) 5 Mg Tab, 10 MG PO DAILY, (Reported) Cefdinir (Cefdinir) 300 Mg Cap, 300 MG PO BID Escitalopram Oxalate (Lexapro) 10 Mg Tab, 10 MG PO DAILY, (Reported) Guaifenesin (Mucinex) 600 Mg Tab, 600 MG PO BID Omeprazole (Omeprazole) 20 Mg Cap, 20 MG PO DAILY, (Reported) Potassium Chloride (Potassium Chloride ER) 20 Meq Tab, 40 MEQ PO DAILY, (Reported) Prednisone (Prednisone) 10 Mg Tab, 10 MG PO TAPER Take 3 tabs daily x 3 days, then 2 tabs daily x 3 days, then 1 tabs daily x 3 days, then stop Salmeterol/Fluticasone (Advair Diskus 250-50 Mcg/Dose) 14 Puff/Inhaler Aerp, 1 PUFF INH BID, (Reported) PATIENT HAS NOT BEEN USING BECAUSE HE ISN'T QUITE SURE HOW TO USE IT Senna (Senna Lax) 8.6 Mg Tab, 2 TAB PO QHS, (Reported) Simvastatin (Simvastatin) 20 Mg Tab, 20 MG PO QHS, (Reported) Torsemide (Torsemide) 20 Mg Tab, 20 MG PO DAILY, (Reported) Scheduled PRN Albuterol Sulfate (Ventolin Hfa) 108 Mcg/Act Aer, 2 PUFF INH Q4H PRN for SHORTNESS OF BREATH, (Reported) Allergies Coded Allergies: No Known Allergies (Verified , 05/11/04) NILAY ONEILL MD Oct 29, 2018 17:02
[2018-10-30] MEDS ORDERED: CEFDINIR 300 MG CAP (OMNICEF) PO SCH (09:00)
[2018-10-30] MEDS ORDERED: AZITHROMYCIN 250 MG TAB PO SCH (09:00)
== END 2018-10-29 15:19 | disposition home health service (06) | DRG 190 ==
LOC: M ED 04:14 → M ED INP 08:46 → M MSPAV 10:54
PROVIDERS: ADMIT Hospitalist; ATTEND Internal Medicine
DX: J44.1 Chronic obstructive pulmonary disease with (acute) exacerbation (principal); J18.9 Pneumonia, unspecified organism; I50.32 Chronic diastolic (congestive) heart failure; J44.0 Chronic obstructive pulmonary disease with (acute) lower respiratory infection; I48.91 Unspecified atrial fibrillation; I10 Essential (primary) hypertension; I27.20 Pulmonary hypertension, unspecified; K21.9 Gastro-esophageal reflux disease without esophagitis; Z79.899 Other long term (current) drug therapy; Z79.82 Long term (current) use of aspirin; Z86.73 Personal history of transient ischemic attack (TIA), and cerebral infarction without residual deficits; Z87.891 Personal history of nicotine dependence

== ENCOUNTER 2018-11-21 15:26 | Inpatient (IN) | payer MEDICARE, OTHER ==
[~2018-11-21] VITALS: Ht 177.8 cm; Wt 87.3 kg
[~2018-11-21 15:26] MED LIST changes: +ADV250INH INH; +AZIT-12 PO; +CEFD300CAP PO; +DOXY100T PO; +MUCI600T37 PO; +POTA1TAB14 PO; +PRED10TA2 PO; +TORS20TA2 PO; +VENTAER INH
[2018-11-21 16:15] LABS: BASO # 0.1 10^3/uL (0.0-0.2); BASO % 1.1 % (0.0-1.0); EOS # 0.3 10^3/uL (0.0-0.50); EOS % 4.9 % (0.0-3.0); HEMATOCRIT 37.3 % (42.0-52.0); HEMOGLOBIN 11.5 g/dl (13.5-17.5); LYMPH # 0.7 10^3/uL (1.5-4.5); LYMPH % 11.5 % (24.0-44.0); MEAN CORPUSCULAR HEMOGLOBIN 29.8 pg (27.0-33.0); MEAN CORPUSCULAR HGB CONC 30.8 g/dl (32.0-36.5); MEAN CORPUSCULAR VOLUME 96.6 fl (80.0-96.0); MONO # 0.9 10^3/uL (0.0-0.8); MONO % 15.2 % (0.0-5.0); NEUTROPHILS # 3.8 10^3/uL (1.8-7.7); NEUTROPHILS % 66.9 % (36.0-66.0); PLATELET COUNT, AUTOMATED 169 10^3/uL (150-450); RED BLOOD COUNT 3.86 10^6/uL (4.30-6.10); WHITE BLOOD COUNT 5.7 10^3/uL (4.0-10.0)
[2018-11-21] MEDS ORDERED: methylPREDNISolone INJ 125 MG/2 ML VIAL (J2930) IV ONE (16:15)
[2018-11-21] MEDS ORDERED: IPRATROPIUM 0.5MG/ALBUTEROL 2.5MG INH SOL UD 3ML (DUONEB)(J7620) NEB ONE (16:15)
[2018-11-21 16:37] LABS: BLOOD UREA NITROGEN 26 MG/DL (7-18); CALCIUM LEVEL 8.7 MG/DL (8.8-10.2); CARBON DIOXIDE LEVEL 33 MEQ/L (21-32); CHLORIDE LEVEL 107 MEQ/L (98-107); CPK CREATINE PHOSPHOKINASE 59 U/L (39-308); GLOMERULAR FILTRATION RATE > 60.0 (>35); GLUCOSE, FASTING 116 MG/DL (70-100); POTASSIUM SERUM 4.2 MEQ/L (3.5-5.1); SODIUM LEVEL 145 MEQ/L (136-145); TROPONIN I 0.03 NG/ML (< 0.10)
[2018-11-21 16:41] LABS: MB/CK RELATIVE INDEX 3.56 (< OR =4); NT-PRO BNP 263 PG/ML (<450)
[2018-11-21] MEDS ORDERED: LevoFLOXacin IV 500 MG in APPROPRIATE DILUENT 1 EA IV ONE (17:45)
[2018-11-21] MEDS ORDERED: ATEN25TA PO (18:07)
[2018-11-21] MEDS ORDERED: VITA100066 PO (18:07)
[2018-11-21] MEDS ORDERED: VITMTA PO (18:07)
[2018-11-21] MEDS ORDERED: VITA10002 PO (18:07)
[2018-11-21] MEDS ORDERED: ALBUTEROL 90 MCG/ACT 8GM HFA INHALER INH PRN (19:30)
--- NOTE | 2018-11-21 21:19 | HPE ---
DATE OF ADMISSION: 11/21/2018 An 83-year-old male with a past medical history of atrial fibrillation, aortic valve sclerosis, pulmonary hypertension, congestive heart failure (CHF), hyperlipidemia, interstitial lung disease, presents to the emergency room with three days of shortness of breath, today being the worst of all three days, has shortness of breath at rest. The patient was apparently found hypoxic with saturations (sats) in the high 80s. The patient is not oxygen (O2) dependent at all at home. In the emergency room (ER), he was placed on two liters nasal cannula and given nebulizer treatment and right now he is saturating 92% on two liters nasal cannula. Chest x-ray showed large right elevated hemidiaphragm but no acute consolidations, and he will be admitted for further management. PAST MEDICAL HISTORY: Hypertension. Hyperlipidemia. History of atrial fibrillation. Non-oxygen dependent chronic obstructive pulmonary disease (COPD). Chronic diastolic heart failure. Gastroesophageal reflux disease (GERD). Urinary retention. History of hemorrhagic stroke 10 years ago. Ischemic stroke 20 years ago. ALLERGIES: He has no known drug allergies. FAMILY HISTORY: Noncontributory. SOCIAL HISTORY: Patient used to smoke half a pack a day for many years, quit in the . Denies alcohol or illicit drugs. MEDICATIONS: He takes at home are as follows: - albuterol as needed - aspirin 81 mg orally daily - atenolol 25 mg orally daily - Lumigan one drop both eyes nightly - Bisacodyl 10 mg orally daily - cholecalciferol 1000 units orally daily - cyanocobalamin 1000 mcg orally daily - escitalopram 10 mg orally daily - potassium chloride 40 mEq orally daily - Restasis one drop both eyes twice a day - Advair 250-50 one puff inhaled twice daily - Senna two tablets orally at bedtime - simvastatin 20 mg orally at bedtime - torsemide 20 mg orally daily REVIEW OF SYSTEMS: Negative all ten major systems except what is mentioned in the history of the present illness. Vital Signs: Blood pressure is 114/56, heart rate is 84, regular, respiratory rate is 24, temperature is 98, oxygen saturation 92% on two liters nasal cannula. Head is atraumatic, normocephalic. Neck supple. No jugular venous distention (JVD). Lungs have crackles bilaterally. S1, S2 audible, No murmurs appreciated. Abdomen: Soft, positive bowel sounds. +2 pedal edema bilaterally, which is chronic. Skin: Intact. Neurologic Examination: Patient awake, alert, oriented times three. LABORATORY: WBC 5.7, hemoglobin is 11.5, hematocrit 37.3, platelets 169,000. Sodium 145, potassium is 4.2, chloride is 107, CO2 is 33, BUN is 26, creatinine is 0.8. Troponin is 0.03. BNP is 263. IMPRESSION: 1. Acute hypoxic respiratory failure. PLAN: Patient to be admitted to medical-surgical floor. I feel there is no active disease at this time for this patient. I think that the patient does have underlying interstitial lung disease, likely idiopathic pulmonary fibrosis (IPF). Will continue him on oxygen for now at two liters. Will do overnight pulse oximetry and likely the patient can be discharged home on home oxygen. The patient does not have any pulmonary physician, and we will get him a pulmonary referral upon discharge. Will give him DuoNebs also as needed and will continue his care on the medical-surgical floor.
[2018-11-21] MEDS: SIMVASTATIN 20 MG TAB PO SCH (21:26)
[2018-11-21] MEDS: SENNA 8.6 MG TAB (SENOKOT) PO SCH (21:26)
[2018-11-21 22:00] VITALS: BP 111/53; O2SAT 97
[2018-11-22 06:00] VITALS: BP 106/54
[2018-11-22 06:39] LABS: BASO % 0.3 % (0.0-1.0); HEMATOCRIT 34.2 % (42.0-52.0); HEMOGLOBIN 10.6 g/dl (13.5-17.5); LYMPH # 0.4 10^3/uL (1.5-4.5); LYMPH % 9.7 % (24.0-44.0); MEAN CORPUSCULAR HEMOGLOBIN 30.1 pg (27.0-33.0); MEAN CORPUSCULAR VOLUME 97.2 fl (80.0-96.0); MONO # 0.2 10^3/uL (0.0-0.8); MONO % 5.8 % (0.0-5.0); NEUTROPHILS % 83.9 % (36.0-66.0); PLATELET COUNT, AUTOMATED 154 10^3/uL (150-450); RED BLOOD COUNT 3.52 10^6/uL (4.30-6.10); WHITE BLOOD COUNT 3.6 10^3/uL (4.0-10.0)
--- NOTE | 2018-11-22 06:39 | REP ---
CHEST, PORTABLE: AP portable view of the chest is performed and compared to prior study of 10/24/2018. There is again chronic elevation of the right hemidiaphragm with adjacent right base atelectasis/infiltrate. There appears to be underlying interstitial fibrosis. Cardiomediastinal silhouette is unchanged. IMPRESSION: Stable exam. Electronically Signed by Ezekiel Saldaña MD 11/26/2018 09:20 A
[2018-11-22] MEDS ORDERED: ISOVUE-370 76% 125ML VIAL (Q9967 PER ML) As Ordered ONE (07:48)
[2018-11-22 08:49] LABS: ERYTHROCYTE SEDIMENTATION RATE 17 mm/hr (0-30)
--- NOTE | 2018-11-22 08:59 | REP ---
A CT of the chest with IV contrast, CT pulmonary angiography protocol: Comparison study is 10/24/2018. There are no emboli in the pulmonary trunk or central pulmonary arteries. There are no emboli in the pulmonary lobe or segment branches. The pulmonary trunk measures 37 mm transversely and is dilated. This is compatible with pulmonary hypertension. There is global chronic cardiomegaly, unchanged. The IV contrast is in the superior vena cava, right atrium, right ventricle and pulmonary arteries. There is a small volume of contrast in the left atrium, left ventricle. There is pericardial calcification along the left lateral cardiac margin, unchanged, likely residual from prior pericarditis. The right hemidiaphragm is markedly elevated. This is unchanged. There are colonic loops interposed between the elevated right hemidiaphragm and dome of the liver, unchanged. There is atelectasis inferiorly in the right lung above the elevated right hemidiaphragm. There is atelectasis in the lower lobes bilaterally. The thoracic aorta is unremarkable. The aortic root measures 43 mm in diameter and is dilated. There is global cardiomegaly as previously. No pericardial effusion. The visualized upper abdominal contents are unremarkable except for colonic loops interposed between the elevated right hemidiaphragm and hepatic dome as previously discussed. Impression: There are no pulmonary emboli. There is atelectasis in the lower lobes bilaterally and inferiorly in the right lung above the elevated right hemidiaphragm. No cardiomegaly, unchanged. The dilated pulmonary trunk, compatible with pulmonary hypertension, unchanged . Dilated aortic root, unchanged. Pericardial calcification, unchanged, likely residual from previous pericarditis. Electronically Signed by Ezekiel Wharton MD 11/22/2018 08:51 A
[2018-11-22] MEDS: ATENOLOL 25 MG TAB PO SCH (09:00)
[2018-11-22] MEDS: TORSEMIDE 20 MG TAB PO SCH (09:00)
[2018-11-22 09:35] LABS: BLOOD UREA NITROGEN 29 MG/DL (7-18); C REACTIVE PROTEIN QUANTITATIV 0.99 MG/DL (0.00-0.30); CALCIUM LEVEL 8.7 MG/DL (8.8-10.2); CARBON DIOXIDE LEVEL 34 MEQ/L (21-32); CHLORIDE LEVEL 104 MEQ/L (98-107); CREATININE FOR GFR 0.88 MG/DL (0.70-1.30); GLOMERULAR FILTRATION RATE > 60.0 (>35); GLUCOSE, FASTING 115 MG/DL (70-100); MAGNESIUM LEVEL 2.3 MG/DL (1.8-2.4); POTASSIUM SERUM 4.3 MEQ/L (3.5-5.1); SODIUM LEVEL 142 MEQ/L (136-145)
[2018-11-22] MEDS: ADVAIR HFA 115/21MCG INHALER INH PRN (09:38)
[2018-11-22] MEDS: POTASSIUM CHLORIDE 10 MEQ SR TABLET PO SCH (10:18)
[2018-11-22] MEDS: ASPIRIN 81 MG ENTERIC TAB PO SCH (10:18)
[2018-11-22] MEDS: VITAMIN D 1,000 INTERNATIONAL UNITS TABLET PO SCH (10:18)
[2018-11-22] MEDS: MULTIVITAMINS/MINERALS THERAP 1 TAB PO SCH (10:18)
[2018-11-22] MEDS: BISACODYL 5 MG TAB PO SCH (10:19)
[2018-11-22] MEDS: CYANOCOBALAMIN 500 MCG TAB PO SCH (10:19)
[2018-11-22] MEDS: ESCITALOPRAM OXALATE 10 MG TAB (LEXAPRO) PO SCH (10:19)
[2018-11-22] MEDS: OMEPRAZOLE 20 MG CAP PO SCH (10:20)
[2018-11-22 14:00] VITALS: BP 115/78
[2018-11-22] MEDS: SENNA 8.6 MG TAB (SENOKOT) PO SCH (20:17)
[2018-11-22] MEDS: SIMVASTATIN 20 MG TAB PO SCH (20:17)
[2018-11-22 22:00] VITALS: BP 120/65; O2SAT 95
--- NOTE | 2018-11-22 23:13 | IPN ---
DATE: 11/22/2018 SUBJECTIVE: Patient seen and examined in the room with his family members. Patient stated he was discharged from the hospital from 10/29/2018. In the next several weeks, patient started having shortness of breath, especially during exertion. He also noted to have exertional intolerance. Denies any fevers or chills. Denies any worsening cough. OBJECTIVE: VITAL SIGNS: Temperature is 98, pulse 74, respirations 20, blood pressure 106/54, pulse oximetry 98% with 2 liters nasal cannula. GENERAL: Patient is alert and awake. No distress. HEENT: Normocephalic, atraumatic. Extraocular motor grossly intact. CARDIOVASCULAR: Positive S1, S2, irregularly irregular. LUNGS: Positive crackles bilaterally. No wheezes appreciated. ABDOMEN: Soft, nontender, nondistended. Bowel sounds present. EXTREMITIES: Positive lower extremity edema noted. LABORATORY DATA: WBC 3.6, hemoglobin 10.6, hematocrit 34.2, platelet count is 154. Sodium is 142, potassium is 4.3, chloride 104, carbon dioxide is 34, BUN is 29, creatinine 0.8, GFR greater than 60, fasting glucose 115, calcium 8.7, magnesium 2.3. C-reactive protein is 0.99. IMAGING STUDIES: CT angiogram of the chest demonstrated no pulmonary embolism (PE). Atelectasis in the lower lobes bilaterally and inferiorly in the right lung. No cardiomegaly. Dilated pulmonary trunk compatible with pulmonary hypertension. ASSESSMENT AND PLAN: 1. Acute respiratory distress. At baseline, patient has chronic obstructive pulmonary disease (COPD), pulmonary hypertension, chronic interstitial lung disease. Previously patient was hospitalized for COPD exacerbation secondary to right-sided pneumonia. Imaging study was performed. No pleural fluid noted. The suspicion for infectious etiology causing respiratory distress is low. Patient was noted to have pulmonary hypertension, interstitial fibrosis for interstitial lung disease. Will continue to watch patient's oxygenation and evaluation patient with physical therapy. 2. Atrial fibrillation. Patient is on atenolol. Heart rate in the satisfactory range. Patient is not on anticoagulation due to the history of hemorrhagic stroke. 3. History of diastolic congestive heart failure and right-sided heart failure. No significant fluid overload noted from the CT angiogram. Brain natriuretic peptide (BNP) is 263. Patient is on torsemide. 4. COPD. No exacerbation at this moment. Continue to monitor. 5. History of hemorrhagic stroke, occurred approximately 10 years ago. 6. History of ischemic stroke. Continue aspirin, atenolol. 7. Deep vein thrombosis (DVT) prophylaxis. On thromboembolic deterrents (TEDs) and compression. MTDD
[2018-11-23 05:59] LABS: HEMATOCRIT 34.6 % (42.0-52.0); HEMOGLOBIN 10.8 g/dl (13.5-17.5); MEAN CORPUSCULAR HGB CONC 31.2 g/dl (32.0-36.5); MEAN CORPUSCULAR VOLUME 96.1 fl (80.0-96.0); PLATELET COUNT, AUTOMATED 177 10^3/uL (150-450); WHITE BLOOD COUNT 7.6 10^3/uL (4.0-10.0)
[2018-11-23 06:00] VITALS: BP 123/63
[2018-11-23 06:26] LABS: BLOOD UREA NITROGEN 36 MG/DL (7-18); CALCIUM LEVEL 8.7 MG/DL (8.8-10.2); CARBON DIOXIDE LEVEL 35 MEQ/L (21-32); CHLORIDE LEVEL 105 MEQ/L (98-107); CREATININE FOR GFR 0.82 MG/DL (0.70-1.30); GLOMERULAR FILTRATION RATE > 60.0 (>35); GLUCOSE, FASTING 99 MG/DL (70-100); MAGNESIUM LEVEL 2.4 MG/DL (1.8-2.4); POTASSIUM SERUM 4.6 MEQ/L (3.5-5.1); SODIUM LEVEL 142 MEQ/L (136-145)
[2018-11-23] MEDS: CYANOCOBALAMIN 500 MCG TAB PO SCH (09:46)
[2018-11-23] MEDS: OMEPRAZOLE 20 MG CAP PO SCH (09:46)
[2018-11-23] MEDS: VITAMIN D 1,000 INTERNATIONAL UNITS TABLET PO SCH (09:46)
[2018-11-23] MEDS: ESCITALOPRAM OXALATE 10 MG TAB (LEXAPRO) PO SCH (09:46)
[2018-11-23] MEDS: POTASSIUM CHLORIDE 10 MEQ SR TABLET PO SCH (09:46)
[2018-11-23] MEDS: ASPIRIN 81 MG ENTERIC TAB PO SCH (09:46)
[2018-11-23] MEDS: BISACODYL 5 MG TAB PO SCH (09:47)
[2018-11-23] MEDS: MULTIVITAMINS/MINERALS THERAP 1 TAB PO SCH (09:47)
[2018-11-23] MEDS: ADVAIR HFA 115/21MCG INHALER INH PRN ×2 (10:02→19:09)
[2018-11-23] MEDS: TORSEMIDE 20 MG TAB PO SCH (10:54)
[2018-11-23] MEDS: ATENOLOL 25 MG TAB PO SCH (10:54)
[2018-11-23 14:00] VITALS: BP 101/59
--- NOTE | 2018-11-23 14:02 | IPNPDOC ---
Text Note Date of Service The patient was seen on 11/23/18. NOTE SUBJECTIVE: Patient is seen and examined in the room. Patient almost fell while ambulating to restroom. Patient complains about fatigue. Patient still requires oxygen support. OBJECTIVE: VITAL SIGNS: Listed below. GENERAL: Patient is alert and awake. No distress. HEENT: Normocephalic, atraumatic. Extraocular motor grossly intact. CARDIOVASCULAR: Positive S1, S2, irregularly irregular. LUNGS: Positive crackles bilaterally. No wheezes appreciated. ABDOMEN: Soft, nontender, nondistended. Bowel sounds present. EXTREMITIES: Positive lower extremity edema noted. LABORATORY DATA: Listed below. IMAGING STUDIES: CT angiogram of the chest demonstrated no pulmonary embolism (PE). Atelectasis in the lower lobes bilaterally and inferiorly in the right lung. No cardiomegaly. Dilated pulmonary trunk compatible with pulmonary hypertension. ASSESSMENT AND PLAN: #. Acute respiratory distress. - At baseline, patient has chronic obstructive pulmonary disease (COPD), pulmonary hypertension, chronic interstitial lung disease. No pleural fluid noted. The suspicion for infectious etiology causing respiratory distress is low. Will continue to watch patient's oxygenation and evaluation patient with physical therapy. #. Atrial fibrillation. - Patient is on atenolol. Heart rate in the satisfactory range. Patient is not on anticoagulation due to the history of hemorrhagic stroke. #. History of diastolic congestive heart failure and right-sided heart failure. - No significant fluid overload noted from the CT angiogram. Brain natriuretic peptide (BNP) is 263. Patient is on torsemide. #. COPD. No exacerbation at this moment. Continue to monitor. #. History of hemorrhagic stroke, occurred approximately 10 years ago. #. History of ischemic stroke. Continue aspirin, atenolol. #. Deep vein thrombosis (DVT) prophylaxis. On thromboembolic deterrents (TEDs) and compression. VS,Fishbone, I+O VS, Fishbone, I+O Laboratory Tests 11/23/18 05:25 Red Blood Count 3.60 L, Mean Corpuscular Volume 96.1 H, Mean Corpuscular Hemoglobin 30.0, Mean Corpuscular Hemoglobin Concent 31.2 L, Red Cell Distribution Width 16.7 H, Calcium Level 8.7 L Vital Signs Date Time Temp Pulse Resp B/P (MAP) Pulse Ox O2 Delivery O2 Flow Rate FiO2 11/23/18 10:54 99 96/52 11/23/18 09:00 2.0 11/23/18 06:00 97.4 20 93 11/21/18 15:44 Room Air I&O- Last 24 Hours up to 6 AM 11/23/18 06:00 Intake Total 940 ml Output Total 300 ml Balance 640 ml ZA LÓPEZ DO Nov 23, 2018 14:02
[2018-11-23] MEDS: SIMVASTATIN 20 MG TAB PO SCH (21:13)
[2018-11-23] MEDS: SENNA 8.6 MG TAB (SENOKOT) PO SCH (21:13)
[2018-11-23 22:00] VITALS: BP 94/54
[2018-11-24 05:59] LABS: HEMATOCRIT 33.5 % (42.0-52.0); HEMOGLOBIN 10.7 g/dl (13.5-17.5); MEAN CORPUSCULAR HEMOGLOBIN 30.3 pg (27.0-33.0); MEAN CORPUSCULAR HGB CONC 31.9 g/dl (32.0-36.5); MEAN CORPUSCULAR VOLUME 94.9 fl (80.0-96.0); PLATELET COUNT, AUTOMATED 163 10^3/uL (150-450); RED BLOOD COUNT 3.53 10^6/uL (4.30-6.10); WHITE BLOOD COUNT 6.9 10^3/uL (4.0-10.0)
[2018-11-24 06:00] VITALS: BP 97/54
[2018-11-24 06:27] LABS: BLOOD UREA NITROGEN 35 MG/DL (7-18); CALCIUM LEVEL 8.7 MG/DL (8.8-10.2); CARBON DIOXIDE LEVEL 33 MEQ/L (21-32); CHLORIDE LEVEL 105 MEQ/L (98-107); CREATININE FOR GFR 0.78 MG/DL (0.70-1.30); GLOMERULAR FILTRATION RATE > 60.0 (>35); GLUCOSE, FASTING 85 MG/DL (70-100); MAGNESIUM LEVEL 2.3 MG/DL (1.8-2.4); POTASSIUM SERUM 4.7 MEQ/L (3.5-5.1); SODIUM LEVEL 141 MEQ/L (136-145)
[2018-11-24] MEDS: ADVAIR HFA 115/21MCG INHALER INH PRN ×2 (07:15→19:41)
[2018-11-24] MEDS: ATENOLOL 12.5MG PER 1/2 TABLET PO SCH ×2 (09:00→09:03)
[2018-11-24] MEDS: MULTIVITAMINS/MINERALS THERAP 1 TAB PO SCH (09:03)
[2018-11-24] MEDS: TORSEMIDE 20 MG TAB PO SCH (09:03)
[2018-11-24] MEDS: ASPIRIN 81 MG ENTERIC TAB PO SCH (09:03)
[2018-11-24] MEDS: OMEPRAZOLE 20 MG CAP PO SCH (09:03)
[2018-11-24] MEDS: VITAMIN D 1,000 INTERNATIONAL UNITS TABLET PO SCH (09:03)
[2018-11-24] MEDS: POTASSIUM CHLORIDE 10 MEQ SR TABLET PO SCH (09:04)
[2018-11-24] MEDS: ESCITALOPRAM OXALATE 10 MG TAB (LEXAPRO) PO SCH (09:04)
[2018-11-24] MEDS: CYANOCOBALAMIN 500 MCG TAB PO SCH (09:04)
[2018-11-24] MEDS: BISACODYL 5 MG TAB PO SCH (09:05)
[2018-11-24 14:00] VITALS: BP 90/68
--- NOTE | 2018-11-24 14:08 | IPNPDOC ---
Text Note Date of Service The patient was seen on 11/24/18. NOTE SUBJECTIVE: Patient is seen and examined in the room. Patient still complains about weakness. He continues requiring oxygen support. No fever or chill. Denies cough or sputum production. OBJECTIVE: VITAL SIGNS: Listed below. GENERAL: Patient is alert and awake. No distress. HEENT: Normocephalic, atraumatic. Extraocular motor grossly intact. CARDIOVASCULAR: Positive S1, S2, irregularly irregular. LUNGS: Positive crackles bilaterally. No wheezes appreciated. ABDOMEN: Soft, nontender, nondistended. Bowel sounds present. EXTREMITIES: Positive lower extremity edema noted. LABORATORY DATA: Listed below. IMAGING STUDIES: CT angiogram of the chest demonstrated no pulmonary embolism (PE). Atelectasis in the lower lobes bilaterally and inferiorly in the right lung. No cardiomegaly. Dilated pulmonary trunk compatible with pulmonary hypertension. ASSESSMENT AND PLAN: #. Acute respiratory distress. - At baseline, patient has chronic obstructive pulmonary disease (COPD), p ulmonary hypertension, chronic interstitial lung disease. - No pleural fluid noted. The suspicion for infectious etiology causing respiratory distress is low. CT angio chest demonstrated no PE. - Will continue to watch patient's oxygenation and evaluation patient with physical therapy. # Hypotension - Patient is on atenolol and Torsemide. - Will adjust dosage if needed. #. Atrial fibrillation. - Patient is on atenolol. Heart rate in the satisfactory range. Patient is not on anticoagulation due to the history of hemorrhagic stroke. #. History of diastolic congestive heart failure and right-sided heart failure. - No significant fluid overload noted from the CT angiogram. Brain natriuretic peptide (BNP) was 263. Patient is on torsemide. #. COPD. No exacerbation at this moment. Continue to monitor. #. History of hemorrhagic stroke, occurred approximately 10 years ago. #. History of ischemic stroke. Continue aspirin, atenolol. #. Deep vein thrombosis (DVT) prophylaxis. On thromboembolic deterrents (TEDs) and compression. VS,Fishbone, I+O VS, Fishbone, I+O Laboratory Tests 11/24/18 05:28 Red Blood Count 3.53 L, Mean Corpuscular Volume 94.9, Mean Corpuscular Hemoglobin 30.3, Mean Corpuscular Hemoglobin Concent 31.9 L, Red Cell Distribution Width 16.8 H, Calcium Level 8.7 L Vital Signs Date Time Temp Pulse Resp B/P (MAP) Pulse Ox O2 Delivery O2 Flow Rate FiO2 11/24/18 08:00 1.0 11/24/18 06:00 97.5 86 19 97/54 (68) 91 11/21/18 15:44 Room Air I&O- Last 24 Hours up to 6 AM 11/24/18 06:00 Intake Total 780 ml Output Total 775 ml Balance 5 ml ZA LÓPEZ DO Nov 24, 2018 14:08
[2018-11-24] MEDS: SENNA 8.6 MG TAB (SENOKOT) PO SCH (20:06)
[2018-11-24] MEDS: SIMVASTATIN 20 MG TAB PO SCH (20:06)
[2018-11-24 22:00] VITALS: BP 105/57
[2018-11-25 06:00] VITALS: BP 102/52
[2018-11-25 06:06] LABS: HEMATOCRIT 33.3 % (42.0-52.0); HEMOGLOBIN 10.7 g/dl (13.5-17.5); MEAN CORPUSCULAR HEMOGLOBIN 30.7 pg (27.0-33.0); MEAN CORPUSCULAR HGB CONC 32.1 g/dl (32.0-36.5); MEAN CORPUSCULAR VOLUME 95.7 fl (80.0-96.0); PLATELET COUNT, AUTOMATED 153 10^3/uL (150-450); RED BLOOD COUNT 3.48 10^6/uL (4.30-6.10); WHITE BLOOD COUNT 5.6 10^3/uL (4.0-10.0)
[2018-11-25 06:34] LABS: BLOOD UREA NITROGEN 31 MG/DL (7-18); CALCIUM LEVEL 8.6 MG/DL (8.8-10.2); CARBON DIOXIDE LEVEL 33 MEQ/L (21-32); CHLORIDE LEVEL 106 MEQ/L (98-107); CREATININE FOR GFR 0.73 MG/DL (0.70-1.30); GLOMERULAR FILTRATION RATE > 60.0 (>35); GLUCOSE, FASTING 86 MG/DL (70-100); MAGNESIUM LEVEL 2.3 MG/DL (1.8-2.4); SODIUM LEVEL 142 MEQ/L (136-145)
[2018-11-25] MEDS: ASPIRIN 81 MG ENTERIC TAB PO SCH (08:50)
[2018-11-25] MEDS: TORSEMIDE 20 MG TAB PO SCH (08:50)
[2018-11-25] MEDS: ESCITALOPRAM OXALATE 10 MG TAB (LEXAPRO) PO SCH (08:50)
[2018-11-25] MEDS: MULTIVITAMINS/MINERALS THERAP 1 TAB PO SCH (08:50)
[2018-11-25] MEDS: OMEPRAZOLE 20 MG CAP PO SCH (08:50)
[2018-11-25] MEDS: VITAMIN D 1,000 INTERNATIONAL UNITS TABLET PO SCH (08:50)
[2018-11-25] MEDS: ATENOLOL 12.5MG PER 1/2 TABLET PO SCH (08:51)
[2018-11-25] MEDS: CYANOCOBALAMIN 500 MCG TAB PO SCH (08:51)
[2018-11-25] MEDS: BISACODYL 5 MG TAB PO SCH (08:53)
[2018-11-25 14:00] VITALS: BP 111/84
--- NOTE | 2018-11-25 16:54 | IPNPDOC ---
Subjective Date Seen The patient was seen on 11/25/18. Subjective Chief Complaint/HPI Patient seen and examined at the bedside. Reports that his respiratory status is improving. PT on board for functional optimization. Objective Physical Examination General Exam: Positive: Alert, Cooperative, No Acute Distress ENT Exam: Positive: Atraumatic, Mucous membr. moist/pink Neck Exam: Negative: JVD Chest Exam: Positive: Diminished Heart Exam: Positive: Rate Normal, Normal S1, Normal S2 Abdomen Exam: Positive: Soft; Negative: Tenderness Extremity Exam: Negative: Tenderness, Swelling Psych Exam: Positive: Oriented x 3 Assessment /Plan Plan/VTE VTE Prophylaxis Ordered?: Yes Plan Respiratory Distress 2/2 underlying Chronic obstructive pulmonary disease (COPD), pulmonary hypertension, chronic interstitial lung disease. We will cont to monitor the patient's respiratory status PT ordered for functional optimization Atrial fibrillation. Cont atenolol for rate control Not on anticoagulation due to the history of hemorrhagic stroke. History of diastolic congestive heart failure and right-sided heart failure. Patient compensated at this time Cont torsemide. COPD Cont Home Meds History of hemorrhagic stroke, occurred approximately 10 years ago. History of ischemic stroke Continue aspirin, atenolol. GERD Cont PPI Anxiety/Depression Cont Lexapro Dyslipidemia Cont Statin Deep vein thrombosis (DVT) prophylaxis On thromboembolic deterrents (TEDs) and compression. Dispo--PFS/PT on board for further delineation of placement. VS, I&O, 24H, Fishbone Vital Signs/I&O Vital Signs Date Time Temp Pulse Resp B/P (MAP) Pulse Ox O2 Delivery O2 Flow Rate FiO2 11/25/18 14:00 98.3 96 18 111/84 (93) 94 11/25/18 08:00 1.0 11/24/18 19:42 Nasal Cannula I&O- Last 24 Hours up to 6 AM 11/25/18 06:00 Intake Total 1430 ml Output Total 0 ml Balance 1430 ml Laboratory Data 24H LABS Laboratory Tests 2 11/25/18 05:21: Nucleated Red Blood Cells % (auto) 0.0, Anion Gap 3L, Glomerular Filtration Rate > 60.0, Blood Urea Nitrogen 31H, Creatinine 0.73, Sodium Level 142, Potassium Level 5.0, Chloride Level 106, Carbon Dioxide Level 33H, Calcium Level 8.6L, Magnesium Level 2.3 CBC/BMP Laboratory Tests 11/25/18 05:21 Red Blood Count 3.48 L, Mean Corpuscular Volume 95.7, Mean Corpuscular Hemoglobin 30.7, Mean Corpuscular Hemoglobin Concent 32.1, Red Cell Distribution Width 16.7 H, Calcium Level 8.6 L NALLELY ROACH MD Nov 25, 2018 16:54
[2018-11-25] MEDS: SENNA 8.6 MG TAB (SENOKOT) PO SCH (20:07)
[2018-11-25] MEDS: SIMVASTATIN 20 MG TAB PO SCH (20:07)
[2018-11-25 22:00] VITALS: BP 111/61
[2018-11-26 06:00] VITALS: BP 107/57
[2018-11-26 06:10] LABS: HEMOGLOBIN 10.1 g/dl (13.5-17.5); MEAN CORPUSCULAR HEMOGLOBIN 30.3 pg (27.0-33.0); MEAN CORPUSCULAR HGB CONC 32.6 g/dl (32.0-36.5); MEAN CORPUSCULAR VOLUME 93.1 fl (80.0-96.0); PLATELET COUNT, AUTOMATED 164 10^3/uL (150-450); RED BLOOD COUNT 3.33 10^6/uL (4.30-6.10)
[2018-11-26 06:55] LABS: BLOOD UREA NITROGEN 24 MG/DL (7-18); CALCIUM LEVEL 8.4 MG/DL (8.8-10.2); CARBON DIOXIDE LEVEL 33 MEQ/L (21-32); CHLORIDE LEVEL 105 MEQ/L (98-107); CREATININE FOR GFR 0.58 MG/DL (0.70-1.30); GLOMERULAR FILTRATION RATE > 60.0 (>35); GLUCOSE, FASTING 93 MG/DL (70-100); POTASSIUM SERUM 3.3 MEQ/L (3.5-5.1); SODIUM LEVEL 142 MEQ/L (136-145)
[2018-11-26] MEDS: VITAMIN D 1,000 INTERNATIONAL UNITS TABLET PO SCH (08:53)
[2018-11-26 08:54] VITALS: BP 102/56
[2018-11-26] MEDS: ATENOLOL 12.5MG PER 1/2 TABLET PO SCH (08:54)
[2018-11-26] MEDS: TORSEMIDE 20 MG TAB PO SCH (08:54)
[2018-11-26] MEDS: ASPIRIN 81 MG ENTERIC TAB PO SCH (08:54)
[2018-11-26] MEDS: ESCITALOPRAM OXALATE 10 MG TAB (LEXAPRO) PO SCH (08:54)
[2018-11-26] MEDS: CYANOCOBALAMIN 500 MCG TAB PO SCH (08:54)
[2018-11-26] MEDS: OMEPRAZOLE 20 MG CAP PO SCH (08:54)
[2018-11-26] MEDS: MULTIVITAMINS/MINERALS THERAP 1 TAB PO SCH (08:54)
[2018-11-26] MEDS: BISACODYL 5 MG TAB PO SCH (08:55)
[2018-11-26 08:57] VITALS: BP 102/56
--- NOTE | 2018-11-26 16:58 | DS.PDOC ---
Discharge Summary General Date of Admission Nov 24, 2018 at 13:54 Date of Discharge 11/26/18 Discharge Summary PROCEDURES PERFORMED DURING STAY: None. ADMITTING/DISCHARGE DIAGNOSES: Respiratory Distress 2/2 underlying Chronic obstructive pulmonary disease (COPD), pulmonary hypertension, chronic interstitial lung disease. Atrial fibrillation History of diastolic congestive heart failure History of hemorrhagic and ischemic stroke GERD Anxiety/depression Dyslipidemia COMPLICATIONS/CHIEF COMPLAINT: Acute And Chronic Resp Failure W/Hypoxia. HISTORY OF PRESENT ILLNESS: . 83-year-old male with past medical hypertension, dyslipidemia, atrial fibrillation, COPD, chronic diastolic congestive heart failure, GERD, urinary retention, history of hemorrhagic and ischemic stroke presents to the ER with a chief complaint of worsening shortness of breath and functional debility. The patient states that he was having increased shortness of breath on ambulation. He denied any fevers, chills, chest pain, palpitations, abdominal pain, or any nausea/vomiting/diarrhea. In the ER, patient was noted to be hypoxic with a pulse ox reading in the mid 80s. He was admitted to the hospitalist service for further evaluation and management. During hospitalization, the patient was given a dose of IV SoluMedrol. Physical therapy was also ordered for functional optimization. The patient's symptoms significantly improved with supportive treatment and functional optimization with physical therapy. At this time, the patient states that he is feeling much better and is eager to return home. The patient has cleared physical therapy and is not requiring any oxygen. The patient will be discharged with instructions to follow-up with his primary care physician within 7 days. Lastly, the patient is counseled to return to the ER for any acute emergencies. DISCHARGE MEDICATIONS: Please see below. ALLERGIES: Please see below. PHYSICAL EXAMINATION ON DISCHARGE: VITAL SIGNS: Please see below. General Exam: Positive: Alert, Cooperative, No Acute Distress ENT Exam: Positive: Atraumatic, Mucous membr. moist/pink Neck Exam: Negative: JVD Chest Exam: Positive: Diminished Heart Exam: Positive: Rate Normal, Normal S1, Normal S2 Abdomen Exam: Positive: Soft; Negative: Tenderness Extremity Exam: Negative: Tenderness, Swelling Psych Exam: Positive: Oriented x 3 LABORATORY DATA: Please see below. IMAGING: CHEST, PORTABLE: AP portable view of the chest is performed and compared to prior study of 10/24/2018. There is again chronic elevation of the right hemidiaphragm with adjacent right base atelectasis/infiltrate. There appears to be underlying interstitial fibrosis. Cardiomediastinal silhouette is unchanged. IMPRESSION: Stable exam. A CT of the chest with IV contrast, CT pulmonary angiography protocol: Comparison study is 10/24/2018. There are no emboli in the pulmonary trunk or central pulmonary arteries. There are no emboli in the pulmonary lobe or segment branches. The pulmonary trunk measures 37 mm transversely and is dilated. This is compatible with pulmonary hypertension. There is global chronic cardiomegaly, unchanged. The IV contrast is in the superior vena cava, right atrium, right ventricle and pulmonary arteries. There is a small volume of contrast in the left atrium, left ventricle. There is pericardial calcification along the left lateral cardiac margin, unchanged, likely residual from prior pericarditis. The right hemidiaphragm is markedly elevated. This is unchanged. There are colonic loops interposed between the elevated right hemidiaphragm and dome of the liver, unchanged. There is atelectasis inferiorly in the right lung above the elevated right hemidiaphragm. There is atelectasis in the lower lobes bilaterally. The thoracic aorta is unremarkable. The aortic root measures 43 mm in diameter and is dilated. There is global cardiomegaly as previously. No pericardial effusion. The visualized upper abdominal contents are unremarkable except for colonic loops interposed between the elevated right hemidiaphragm and hepatic dome as previously discussed. Impression: There are no pulmonary emboli. There is atelectasis in the lower lobes bilaterally and inferiorly in the right lung above the elevated right hemidiaphragm. No cardiomegaly, unchanged. The dilated pulmonary trunk, compatible with pulmonary hypertension, unchanged . Dilated aortic root, unchanged. Pericardial calcification, unchanged, likely residual from previous pericarditis. PROGNOSIS: Poor long-term prognosis ACTIVITY: As tolerated. DIET: 2 g low sodium diet DISCHARGE PLAN: DISPOSITION: 01 Home, Self-Care. DISCHARGE INSTRUCTIONS: The patient will be discharged with instructions to follow-up with his primary care physician within 7 days. Lastly, the patient is counseled to return to the ER for any acute emergencies. DISCHARGE CONDITION: Stable. TIME SPENT ON DISCHARGE: Greater than 30 minutes. Vital Signs/I&Os Vital Signs Date Time Temp Pulse Resp B/P (MAP) Pulse Ox O2 Delivery O2 Flow Rate FiO2 11/26/18 08:57 96 102/56 (71) 93 11/26/18 06:00 97.2 20 11/25/18 08:00 1.0 11/24/18 19:42 Nasal Cannula I&O- Last 24 Hours up to 6 AM 11/26/18 06:00 Intake Total 1960 ml Output Total 0 ml Balance 1960 ml Laboratory Data Labs 24H Laboratory Tests 2 11/26/18 05:21: Nucleated Red Blood Cells % (auto) 0.0, Anion Gap 4L, Glomerular Filtration Rate > 60.0, Blood Urea Nitrogen 24H, Creatinine 0.58L, Sodium Level 142, Potassium Level 3.3#L, Chloride Level 105, Carbon Dioxide Level 33H, Calcium Level 8.4L, Magnesium Level 2.0 CBC/BMP Laboratory Tests 11/26/18 05:21 Red Blood Count 3.33 L, Mean Corpuscular Volume 93.1, Mean Corpuscular Hemoglobin 30.3, Mean Corpuscular Hemoglobin Concent 32.6, Red Cell Distribution Width 16.4 H, Calcium Level 8.4 L Discharge Medications Scheduled (Restasis) 0.05 % Emu, 1 DROP OU BID, (Reported) Aspirin (Aspirin 81) 81 Mg Tab, 81 MG PO DAILY, (Reported) Atenolol (Atenolol) 25 Mg Tab, 25 MG PO DAILY, (Reported) Bimatoprost (Lumigan) 50 Drop/2.5 Ml Veronica, 1 DROP OU QHS, (Reported) Bisacodyl (Bisacodyl EC) 5 Mg Tab, 10 MG PO DAILY, (Reported) Cholecalciferol (Vitamin D) 1,000 Unit Tab, 1,000 UNIT PO DAILY, (Reported) Cyanocobalamin (Vitamin B-12) 1,000 Mcg Tab, 1,000 MCG PO DAILY, (Reported) Escitalopram Oxalate (Lexapro) 10 Mg Tab, 10 MG PO DAILY, (Reported) Multivitamins *[facility] STOCKED* (Thera M Plus *[facility]OCK[facility]*) 1 Tab Tab, 1 TAB PO DAILY, (Reported) Omeprazole (Omeprazole) 20 Mg Cap, 20 MG PO DAILY, (Reported) Potassium Chloride (Potassium Chloride ER) 20 Meq Tab, 40 MEQ PO DAILY, (Reported) Senna (Senna Lax) 8.6 Mg Tab, 2 TAB PO QHS, (Reported) Simvastatin (Simvastatin) 20 Mg Tab, 20 MG PO QHS, (Reported) Torsemide (Torsemide) 20 Mg Tab, 20 MG PO DAILY, (Reported) Scheduled PRN Albuterol Sulfate (Ventolin Hfa) 108 Mcg/Act Aer, 2 PUFF INH Q4H PRN for SHORTNESS OF BREATH, (Reported) Salmeterol/Fluticasone (Advair Diskus 250-50 Mcg/Dose) 14 Puff/Inhaler Aerp, 1 PUFF INH BID PRN for SHORTNESS OF BREATH, (Reported) PATIENT STATES HE IS USING PRN Allergies Coded Allergies: No Known Allergies (Verified , 05/11/04) NALLELY ROACH MD Nov 26, 2018 16:58
== END 2018-11-26 12:04 | disposition home or self-care (01) | DRG 204 ==
LOC: EDBD 15:26 → M ED 15:26 → M ED INP 19:28 → M MSPAV 21:50 → OBSVTOIN 11-24 13:54
PROVIDERS: ADMIT Internal Medicine; ATTEND Internal Medicine
DX: R06.03 Acute respiratory distress (principal); J44.0 Chronic obstructive pulmonary disease with (acute) lower respiratory infection; I50.32 Chronic diastolic (congestive) heart failure; K21.9 Gastro-esophageal reflux disease without esophagitis; I48.91 Unspecified atrial fibrillation; F32.9 Major depressive disorder, single episode, unspecified; F41.9 Anxiety disorder, unspecified; Z86.73 Personal history of transient ischemic attack (TIA), and cerebral infarction without residual deficits; E78.5 Hyperlipidemia, unspecified; I27.20 Pulmonary hypertension, unspecified; Z79.899 Other long term (current) drug therapy; Z79.82 Long term (current) use of aspirin; R33.9 Retention of urine, unspecified; Z87.891 Personal history of nicotine dependence

== ENCOUNTER → 2018-12-01 | Outpatient (CLI) | payer MEDICARE, OTHER ==
[~2018-12-01] MED LIST changes: +VITA10002 PO; +VITA100066 PO; +VITMTA PO
--- NOTE | 2018-12-01 10:46 | REP ---
Chest x-ray: Three views. History: Pneumonia. Comparison chest x-ray: November 21, 2018. Findings: Moderate cardiac enlargement is again observed. There is elevation of the right hemidiaphragm with bowel loops under both leaves of the diaphragm. Plate-like atelectasis is again seen in the right base above the elevated diaphragm although this is somewhat less prominent than on November 21. There is discoid atelectasis versus fibrosis in the right lower lobe posteriorly. Pulmonary vasculature is cephalized. No definite infiltrate. Impression: Elevated right hemidiaphragm with discoid atelectasis. Cardiomegaly with cephalization. Electronically Signed by Rahat Coates MD 12/01/2018 12:08 P
== END ==
LOC: M WUC 09:38
PROVIDERS: ATTEND Internal Medicine
DX: J98.6 Disorders of diaphragm (principal); I51.7 Cardiomegaly

== ENCOUNTER 2018-12-05 16:54 | Inpatient (IN) | payer MEDICARE, OTHER ==
[~2018-12-05] VITALS: Ht 177.8 cm; Wt 81.0 kg
[~2018-12-05 16:54] MED LIST changes: -ASPI1TAB PO; +ASPI81TA26 PO
[2018-12-05] MEDS ORDERED: methylPREDNISolone INJ 125 MG/2 ML VIAL (J2930) IV ONE (17:15)
[2018-12-05] MEDS ORDERED: IPRATROPIUM 0.5MG/ALBUTEROL 2.5MG INH SOL UD 3ML (DUONEB)(J7620) NEB PRN (17:15)
[2018-12-05] MEDS ORDERED: ISOVUE-370 76% 125ML VIAL (Q9967 PER ML) As Ordered ONE (17:28)
[2018-12-05] MEDS ORDERED: FUROSEMIDE 100 MG/10 ML VIAL (J1940) IV ONE (17:30)
[2018-12-05 17:35] LABS: ABG BASE EXCESS 5.2 (-2.0-2.0); ABG HCO3 30.7 MEQ/L (22.0-26.0); ABG O2 SATURATION 97.2 % (95.0-99.0); ABG PARTIAL PRESSURE CO2 48.7 mmHg (35.0-45.0); ABG PARTIAL PRESSURE O2 98.1 mmHg (75.0-100.0); ABG STANDARD HCO3 29.2 MEQ/L (22.0-26.0); ABG TOTAL CO2 32.2 MEQ/L (23.0-31.0); ABG pH (ARTERIAL) 7.417 UNITS (7.350-7.450)
[2018-12-05 17:37] LABS: BASO # 0.1 10^3/uL (0.0-0.2); BASO % 1.1 % (0.0-1.0); EOS # 0.2 10^3/uL (0.0-0.50); HEMATOCRIT 36.1 % (42.0-52.0); HEMOGLOBIN 11.6 g/dl (13.5-17.5); LYMPH % 11.5 % (24.0-44.0); MEAN CORPUSCULAR HEMOGLOBIN 30.8 pg (27.0-33.0); MEAN CORPUSCULAR HGB CONC 32.1 g/dl (32.0-36.5); MEAN CORPUSCULAR VOLUME 95.8 fl (80.0-96.0); MONO % 11.3 % (0.0-5.0); NEUTROPHILS # 6.2 10^3/uL (1.8-7.7); NEUTROPHILS % 73.7 % (36.0-66.0); PLATELET COUNT, AUTOMATED 198 10^3/uL (150-450); RED BLOOD COUNT 3.77 10^6/uL (4.30-6.10); WHITE BLOOD COUNT 8.4 10^3/uL (4.0-10.0)
--- NOTE | 2018-12-05 17:44 | REP ---
Clinical: Chest pain. Comparison: 12/01/2018. Findings: Cardiomegaly and diffuse alveolar and interstitial infiltrates with indistinct pulmonary vasculature and cephalization is appreciated. Differential diagnosis would include multifocal pneumonia and pulmonary edema. There is significant elevation of the right hemidiaphragm which appears chronic when compared to prior examinations. No obvious pneumothorax. Impression: 1. Cardiomegaly and findings suggesting pulmonary edema and/or multifocal pneumonia. 2. Chronic elevation to the right hemidiaphragm Electronically Signed by Ken Wallis MD 12/05/2018 05:36 P
[2018-12-05] MEDS ORDERED: FUROSEMIDE 40 MG/4 ML VIAL (J1940) IV ONE (17:45)
[2018-12-05 17:47] LABS: INR 1.18; PROTHROMBIN TIME 15.2 SECONDS (12.1-14.4)
[2018-12-05 17:48] LABS: PARTIAL THROMBOPLASTIN TIME 31.1 SECONDS (25.4-37.6)
--- NOTE | 2018-12-05 18:06 | REP ---
Clinical: Chest pain. Rule out aortic dissection. Technique: Axial contrast enhanced images from the thoracic inlet through the pubic symphysis using 100 ml Isovue 370 intravenous contrast material with imaging in maximal arterial enhancement. Multiplanar re-formations obtained. Findings: CHEST: Atherosclerotic changes are appreciated involving the aorta and branch vessels without dissection. Aneurysmal dilatation of the aortic root measuring approximately 4.3 cm remains unchanged. Significant generalized cardiomegaly is appreciated along with atherosclerotic disease and pericardial calcifications suggesting elements of prior infarction and/or pericarditis. No pericardial effusion. Pulmonary arteries are dilated to approximately 3.3 cm consistent with pulmonary hypertension. Bilateral lung batres demonstrate chronic age-related interstitial changes with scattered fibrosis and scarring as well as mild bibasilar atelectasis (right greater than left) similar to prior examination. Significant elevation to the right hemidiaphragm is chronic and appears essentially unchanged compared to chest CT dated 10/24/2018. No significant effusion. No pneumothorax. No obvious adenopathy. ABDOMEN/PELVIS: Liver demonstrates cirrhotic contour. Spleen, pancreas, and bilateral adrenal glands are normal. Kidneys are within normal limits for age. The gallbladder demonstrates small gallstones without evidence for acute cholecystitis. The evaluation of the enteric system demonstrates moderate fecal stasis and diffuse colonic diverticulosis without evidence for obstruction or acute inflammatory process. Fecal impaction at the rectum which appears distended to approximately 8.2 cm requires correlation. Pelvis demonstrates partially collapsed bladder and age appropriate prostate/seminal vesicles. No pelvic fluid or ascites. No free air. No significant adenopathy. Atherosclerotic changes to the aorta and vasculature noted without aneurysm or dissection. Musculoskeletal structures demonstrate osteopenia and degenerative changes without focal osseous abnormality. Impression: 1. No evidence for aortic dissection. Moderate aneurysmal dilatation to the aortic root measuring 4.3 cm maximal diameter along with moderate diffuse atherosclerotic changes to the aorta and vasculature. 2. Significant generalized cardiomegaly. 3. Mild bibasilar atelectasis (right greater than left). 4. Moderate diffuse fecal stasis and possible fecal impaction at the rectum along with diffuse colonic and sigmoid diverticulosis. 5. No further acute pleuroparenchymal or abdominopelvic findings appreciated. Electronically Signed by Ken Wallis MD 12/05/2018 05:57 P
[2018-12-05 18:08] LABS: ALBUMIN 3.1 GM/DL (3.2-5.2); ALT/SGPT 30 U/L (12-78); BILIRUBIN,DIRECT 0.4 MG/DL (0.0-0.2); BILIRUBIN,TOTAL 0.8 MG/DL (0.2-1.0); BLOOD UREA NITROGEN 23 MG/DL (7-18); CALCIUM LEVEL 8.9 MG/DL (8.8-10.2); CARBON DIOXIDE LEVEL 32 MEQ/L (21-32); CHLORIDE LEVEL 105 MEQ/L (98-107); CPK CREATINE PHOSPHOKINASE 52 U/L (39-308); CREATININE FOR GFR 0.86 MG/DL (0.70-1.30); FREE T4 1.12 NG/DL (0.76-1.46); GLOMERULAR FILTRATION RATE > 60.0 (>35); GLUCOSE, FASTING 92 MG/DL (70-100); LIPASE 175 U/L (73-393); MB/CK RELATIVE INDEX 3.65 (< OR =4); NT-PRO BNP 357 PG/ML (<450); POTASSIUM SERUM 4.1 MEQ/L (3.5-5.1); SODIUM LEVEL 144 MEQ/L (136-145); TOTAL PROTEIN 6.5 GM/DL (6.4-8.2); TROPONIN I 0.02 NG/ML (< 0.10)
--- NOTE | 2018-12-05 18:08 | REP ---
Clinical: Calf pain and dyspnea . Technique: Saldaña scale and color Doppler evaluation using linear high frequency transducer. Findings: Ultrasound examination of the right and left lower extremity deep venous structures from the common femoral vein to the popliteal vein demonstrates normal compressibility flow and wave patterns in response to respiration and augmentation. There is no evidence for deep venous thrombosis. Impression: No evidence for deep venous thrombosis. Electronically Signed by Ken Wallis MD 12/05/2018 05:59 P
[2018-12-05] MEDS ORDERED: PIPERACILLIN/TAZOBACTAM SOD 3.375 GM in D5W MINI-BAG PLUS 50 ML IV ONE (18:30)
[2018-12-05] MEDS ORDERED: ACETAMINOPHEN TAB 650MG DOSE (2X325MG) PO ONE (19:00)
[2018-12-05 19:12] LABS: INFLUENZA A AMPLIFICATION NEGATIVE (NEGATIVE); INFLUENZA B AMPLIFICATION NEGATIVE (NEGATIVE)
[2018-12-05] MEDS ORDERED: ACETAMINOPHEN TAB 650MG DOSE (2X325MG) PO PRN (19:30)
[2018-12-05] MEDS ORDERED: ONDANSETRON 4MG/2ML VIAL (J2405) IV PRN (19:30)
[2018-12-05] MEDS ORDERED: cefTRIAXone SOD 1 GM in D5W MINI-BAG PLUS 50 ML IV SCH (19:30)
[2018-12-05] MEDS ORDERED: AZITHROMYCIN INJ 500 MG, VIAL MATE ADAPTER 1 EACH in D5W 250 ML IV SCH (21:00)
[2018-12-05] MEDS: IPRATROPIUM 0.5MG/ALBUTEROL 2.5MG INH SOL UD 3ML (DUONEB)(J7620) NEB SCH ×2 (21:11→23:00)
[2018-12-05 21:35] VITALS: BP 129/66
[2018-12-05] MEDS: SENNA 8.6 MG TAB (SENOKOT) PO SCH (22:23)
[2018-12-05] MEDS: HEPARIN SOD (PORCINE) 5000 UNITS/ML VIAL SC SCH (22:23)
[2018-12-05] MEDS: SIMVASTATIN 20 MG TAB PO SCH (22:23)
[2018-12-06] MEDS ORDERED: methylPREDNISolone INJ 125 MG/2 ML VIAL (J2930) IV SCH (02:00)
[2018-12-06] MEDS: IPRATROPIUM 0.5MG/ALBUTEROL 2.5MG INH SOL UD 3ML (DUONEB)(J7620) NEB SCH ×6 (03:00→23:35)
[2018-12-06] MEDS: HEPARIN SOD (PORCINE) 5000 UNITS/ML VIAL SC SCH ×3 (05:36→20:13)
[2018-12-06 06:00] VITALS: BP 99/60
[2018-12-06 06:14] LABS: HEMATOCRIT 32.3 % (42.0-52.0); HEMOGLOBIN 10.3 g/dl (13.5-17.5); MEAN CORPUSCULAR HEMOGLOBIN 30.4 pg (27.0-33.0); MEAN CORPUSCULAR HGB CONC 31.9 g/dl (32.0-36.5); MEAN CORPUSCULAR VOLUME 95.3 fl (80.0-96.0); PLATELET COUNT, AUTOMATED 180 10^3/uL (150-450); RED BLOOD COUNT 3.39 10^6/uL (4.30-6.10)
[2018-12-06 06:39] LABS: BLOOD UREA NITROGEN 22 MG/DL (7-18); CALCIUM LEVEL 8.5 MG/DL (8.8-10.2); CARBON DIOXIDE LEVEL 32 MEQ/L (21-32); CHLORIDE LEVEL 104 MEQ/L (98-107); CREATININE FOR GFR 0.89 MG/DL (0.70-1.30); GLOMERULAR FILTRATION RATE > 60.0 (>35); GLUCOSE, FASTING 128 MG/DL (70-100); POTASSIUM SERUM 4.1 MEQ/L (3.5-5.1); SODIUM LEVEL 144 MEQ/L (136-145); TROPONIN I 0.02 NG/ML (< 0.10)
[2018-12-06] MEDS: ADVAIR HFA 115/21MCG INHALER INH PRN (07:50)
[2018-12-06] MEDS: TORSEMIDE 20 MG TAB PO SCH (09:00)
[2018-12-06] MEDS: ATENOLOL 25 MG TAB PO SCH (09:00)
[2018-12-06] MEDS ORDERED: OMEPRAZOLE 20 MG CAP PO SCH (09:00)
[2018-12-06] MEDS: POTASSIUM CHLORIDE 10 MEQ SR TABLET PO SCH (09:00)
[2018-12-06] MEDS ORDERED: predniSONE 20 MG TAB PO SCH (09:00)
[2018-12-06] MEDS ORDERED: FLEET ENEMA PR PRN (09:15)
[2018-12-06] MEDS: MULTIVITAMINS/MINERALS THERAP 1 TAB PO SCH (09:20)
[2018-12-06] MEDS: ESCITALOPRAM OXALATE 10 MG TAB (LEXAPRO) PO SCH (09:21)
[2018-12-06] MEDS: VITAMIN D 1,000 INTERNATIONAL UNITS TABLET PO SCH (09:21)
[2018-12-06] MEDS: BISACODYL 5 MG TAB PO SCH (09:21)
[2018-12-06] MEDS: ASPIRIN 81 MG ENTERIC TAB PO SCH (09:21)
[2018-12-06] MEDS: CYANOCOBALAMIN 500 MCG TAB PO SCH (09:21)
[2018-12-06] MEDS ORDERED: FUROSEMIDE 40 MG/4 ML VIAL (J1940) IV ONE (10:00)
[2018-12-06] MEDS ORDERED: FUROSEMIDE 20 MG/2 ML VIAL (J1940) IV ONE (10:00)
[2018-12-06] MEDS: MOM 30ML SUSPENSION UDC PO SCH (10:16)
--- NOTE | 2018-12-06 10:19 | ECGEPIP ---
Stationary ECG Study [facility] Test Date: 2018-12-06 Pat Name: FERN CROWDER Department: Room: H3194-74 Gender: M Student Development Specialist: YUVAL : 1935 Requested By: JENNIFER SATURDAY Order Number: [id number] Reading MD: Edgar Clarke Measurements Intervals [place] Rate: 78 P: AK: 0 QRS: 6 QRSD: 101 T: 156 QT: 397 QTc: 455 Interpretive Statements ATRIAL FIBRILLATION ST DEVIATION AND MODERATE T-WAVE ABNORMALITY, CONSIDER ANTEROLATERAL ISCHEMIA SIMILAR TO 10/24/18 - T WAVE ABNORMALITIES ARE MORE PRONOUNCED TODAY Electronically Signed On 12-06-2018 10:18:51 EDT by Edgar Clarke
--- NOTE | 2018-12-06 13:32 | ECGEPIP ---
Stationary ECG Study [facility] - ED Test Date: 2018-12-05 Pat Name: FERN CROWDER Department: Room: - Gender: M Import/Export Clerk: kaylie : 1935 Requested By: Delia Oconnor Order Number: [id number] Reading MD: Noelle Zarate Measurements Intervals [place] Rate: 79 P: ME: 0 QRS: -3 QRSD: 106 T: 229 QT: 386 QTc: 445 Interpretive Statements ATRIAL FIBRILLATION BASELINE ARTIFACT LIMITS INTERPRETATION ST DEVIATION AND MODERATE T-WAVE ABNORMALITY, CONSIDER ANTEROLATERAL ISCHEMIA Electronically Signed On 12-06-2018 13:32:19 EDT by Noelle Zarate
[2018-12-06 14:00] VITALS: BP 117/55
--- NOTE | 2018-12-06 14:48 | HPE ---
DATE OF ADMISSION: 12/05/2018 CHIEF COMPLAINT: Upper abdominal and lower chest wall pain. HISTORY OF PRESENT ILLNESS: The patient is a male with a significant past medical history of atrial fibrillation (AFib). He is not on anticoagulation. 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 He presented to the emergency room with complaints of pain in the upper abdomen as well. It is primarily the costophrenic angle area that has been going on for the previous day and a half nonstop, nonradiating associated with mild shortness of breath. The patient did deny any change in his cough, any change in sputum production, any change in his respiratory status. He denies any fevers or chills or sick contacts; however, in the emergency room as per the emergency room (ER) provider and the nurse initially taking care of the patient states he was sort of tachypneic and slightly desaturating upon admission which improved with nebulizers. However, the patient does not endorse this he states that his only complaint was the costochondral pain which he has been having for the previous two days associated with some shortness of breath. His initial troponin was negative. He denies any constipation, diarrhea or urinary symptoms. The patient states the pain was improved immediately after Tylenol in the emergency room. CT of his chest showed pulmonary fibrosis unchanged from prior. The pain radiated to the back. It was an 8/10 in severity. It is positional and reproducible. At the moment the pain is completely resolved. It is back to zero as per the patient. It was persistent for over 36 hours prior to receiving what appears to be Tylenol. PAST MEDICAL HISTORY: See history of present illness. PAST SURGICAL HISTORY: Includes: 1. Excision of melanoma. 2. Shoulder surgery. HOME MEDICATIONS: - aspirin - Tylenol - Lumigan - bisacodyl - vitamin D - cyanocobalamin - Lexapro - multivitamin - omeprazole - potassium chloride - Restasis - Advair - simvastatin - Zocor ALLERGIES: No known drug allergies. SOCIAL HISTORY: He is a former smoker. Denies alcohol or illicit drug use. FAMILY HISTORY: Family history is noncontributory. REVIEW OF SYSTEMS: A 12-point review of systems was completed all of which were negative except those listed in the history of present illness. VITAL SIGNS ON ADMISSION: Temperature , pulse , respirations , blood pressure/saturating at 90% on room air. PHYSICAL EXAMINATION: General: He is well nourished, in no apparent distress. Head is normocephalic, atraumatic. Eyes: Extraocular movements are intact. Pupils equal, round, reactive to light. Neck is supple. No jugular venous pressure (JVP). Lungs: Diffuse rhonchi, minimal wheezing. Cardiovascular: Irregularly irregular rhythm. Normal S1, S2. Abdomen: Soft, nontender, nondistended, positive bowel sounds. Extremities: 2-3+ edema. No calf tenderness. Skin: Intact. No rashes, lesions or breakdown. Neurological: Alert and oriented (A and O) times three. No focal deficits. LABORATORIES AND IMAGING COMPLETED IN THE EMERGENCY DEPARTMENT: White count of 8, hemoglobin and hematocrit (H and H) of 11/36, platelet count of 198. Blood gas: 7.4, 48, 98, 32 and 97. Coagulation panel (coags) within normal limits. Chemistry shows a BUN and creatinine of 23/0.86. Initial troponin is negative. Brain natriuretic peptide (BNP) 357. Thyroid-stimulating hormone (TSH) of 5.3, free T4 1.1. Urinalysis (UA): Still pending. Rapid flu is negative. CT of the abdomen and pelvis shows no evidence of aortic dissection, moderate aneurysm, dilation to the aortic root, significant generalized cardiomegaly, mild bibasilar atelectasis, moderate diffuse fecal stasis and possible fecal impaction of the rectum along with diffuse colonic and sigmoid diverticulosis. CTA of the chest no evidence for aortic dissection. Moderate aneurysmal dilatation to the aortic root measuring 4.3 maximal diameter along with moderate diffuse atherosclerotic changes of the aortic vasculature. Significant generalized cardiomegaly, mild bibasilar atelectasis, moderate diffuse fecal stasis and possible fecal impaction of the rectum along with diffuse colonic and sigmoid diverticulosis. No further acute parenchymal abdominal findings of pathology. The lungs show chronic age-related interstitial changes with scattered fibrosis and scarring as well as mild bibasilar atelectasis similar to prior examination. Dopplers are negative. ASSESSMENT AND PLAN: 1. Costochondral pain. Chest pain. Abdominal pain. Likely secondary to constipation versus costochondritis. Rule out acute coronary syndrome (ACS). Very less likely to be a mild IPF. Will recycle the troponins and electrocardiogram (EKG). Will keep the patient on telemetry. Continue aspirin, nitroglycerin as needed, Tylenol as needed as well as a short course of steroids prednisone 40 daily, DuoNebs standing, azithromycin 40 daily, oxygen as needed. For the rest of his chronic medical conditions: 2. Hypertension. Diastolic congestive heart failure (CHF). Continue his torsemide as well as atenolol. 3. Glaucoma. Continue Lumigan, Restasis. 4. Gastroesophageal reflux disease (GERD). Continue omeprazole. 5. Atrial fibrillation (AFib) not on anticoagulation. Continue atenolol. 6. For past history of cerebrovascular accident (CVA) (hemorrhagic and ischemic) continue aspirin only. 7. For hyperlipidemia continue simvastatin. 8. For constipation we will continue the patient's bowel prep. Will also give an enema. 9. Supportive deep vein thrombosis (DVT) prophylaxis: Heparin subcutaneous. 10. Gastrointestinal (GI) prophylaxis. It is not indicated.
[2018-12-06] MEDS: SIMVASTATIN 20 MG TAB PO SCH (20:14)
[2018-12-06] MEDS: SENNA 8.6 MG TAB (SENOKOT) PO SCH (20:14)
[2018-12-06] MEDS ORDERED: MIRALAX *UNIT DOSE* 17GM PACKET PO ONE (20:15)
[2018-12-06] MEDS ORDERED: AZITHROMYCIN 250 MG TAB PO SCH (21:00)
[2018-12-06 22:00] VITALS: BP 114/56
--- NOTE | 2018-12-07 00:06 | IPNPDOC ---
Text Note Date of Service The patient was seen on 12/07/18. NOTE SUBJECTIVE: Pateint says the chest pain has eased this morning though still has some discomfort. Denies any SOB . Says his legs are more swollen than usual. He does not use oxygen at home. Denies any abdominal pain or constipation. PHYSICAL EXAMINATION: General: He is well nourished, in no apparent distress. Head is normocephalic, atraumatic. Eyes: Extraocular movements are intact. Pupils equal, round, reactive to light. Neck is supple. No jugular venous pressure (JVP). Lungs: Diffuse rhonchi, minimal wheezing. Cardiovascular: Irregularly irregular rhythm. Normal S1, S2. Abdomen: Soft, nontender, nondistended, positive bowel sounds. Extremities: 2-3+ edema. No calf tenderness. Skin: Intact. No rashes, lesions or breakdown. Neurological: Alert and oriented (A and O) times three. No focal deficits. Labs and Radiology : Reviewed. ASSESSMENT and PLAN: The patient is a male with a significant past medical history of atrial fibrillation (AFib). He is not on anticoagulation. 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 He presented to the emergency room with complaints of pain in the upper abdomen as well. It is primarily the costophrenic angle area that has been going on for the previous day and a half nonstop, nonradiating associated with mild shortness of breath. He was hypoxic on presentation. He was admitted for evaluation of chest pain and hypoxia probably due to CHF exacerbation. Chest pain ACS ruled out. No pericardial effusion , No aortic dissection Most probably musculoskeletal vs pleuritic. No EKG changes suggestive of pericarditis and no h/o recent respiratory tract infection. continue tylenol CHF with preserved LV systolic function with mild exacerbation Diastolic function could not be determined as patient was in afib during echo Now clinically volume overloaded will give IV lasix Mitral regurgitation with features of fluid overload will give IV Lasix A fib rate controlled continue home medications. Pulmonary interstitial fibrosis predominantly peripheral and Possible restrictive lung disease due to kyphoscoliosis. unknown if he has underlying COPD or not. i think these are at baseline will continue with home meds. Nebs, advair. Will dc steroids and azithromycin. Moderate to severe pulmonary hypertension with corpulmonale. continue lasix. Hypertension continue home meds. H/o CVA both ischemic and hemorrhagic Chronic elevation of right hemidiaphragm Rectal fecal stasis seen in CT abdomen and pelvis will give bowel regimen and enema if required. Colonic diverticulosis. Severe kyphoscoliosis. Skin cancers malignant melanoma of left forearm DVT prophylaxis ordered. VS,Fishbone, I+O VS, Fishbone, I+O Laboratory Tests 12/06/18 05:19 Red Blood Count 3.39 L, Mean Corpuscular Volume 95.3, Mean Corpuscular Hemoglobin 30.4, Mean Corpuscular Hemoglobin Concent 31.9 L, Red Cell Distrib ution Width 16.3 H, Calcium Level 8.5 L Vital Signs Date Time Temp Pulse Resp B/P (MAP) Pulse Ox O2 Delivery O2 Flow Rate FiO2 12/06/18 22:00 98.3 90 18 114/56 (75) 95 2.0 12/05/18 21:27 Nasal Cannula I&O- Last 24 Hours up to 6 AM 12/07/18 06:00 Intake Total 780 ml Output Total 200 ml Balance 580 ml KAIRA ARCOS MD Dec 07, 2018 00:06
[2018-12-07] MEDS: IPRATROPIUM 0.5MG/ALBUTEROL 2.5MG INH SOL UD 3ML (DUONEB)(J7620) NEB SCH ×5 (04:14→21:18)
[2018-12-07] MEDS: HEPARIN SOD (PORCINE) 5000 UNITS/ML VIAL SC SCH ×3 (05:22→20:45)
[2018-12-07 05:49] LABS: HEMATOCRIT 31.4 % (42.0-52.0); HEMOGLOBIN 10.1 g/dl (13.5-17.5); MEAN CORPUSCULAR HEMOGLOBIN 30.1 pg (27.0-33.0); MEAN CORPUSCULAR HGB CONC 32.2 g/dl (32.0-36.5); MEAN CORPUSCULAR VOLUME 93.7 fl (80.0-96.0); PLATELET COUNT, AUTOMATED 190 10^3/uL (150-450); RED BLOOD COUNT 3.35 10^6/uL (4.30-6.10); WHITE BLOOD COUNT 10.3 10^3/uL (4.0-10.0)
[2018-12-07 06:00] VITALS: BP 104/56
[2018-12-07 06:19] LABS: BLOOD UREA NITROGEN 31 MG/DL (7-18); CALCIUM LEVEL 8.8 MG/DL (8.8-10.2); CARBON DIOXIDE LEVEL 34 MEQ/L (21-32); CHLORIDE LEVEL 103 MEQ/L (98-107); CREATININE FOR GFR 0.89 MG/DL (0.70-1.30); GLOMERULAR FILTRATION RATE > 60.0 (>35); GLUCOSE, FASTING 103 MG/DL (70-100); POTASSIUM SERUM 4.4 MEQ/L (3.5-5.1); SODIUM LEVEL 141 MEQ/L (136-145)
[2018-12-07] MEDS: ADVAIR HFA 115/21MCG INHALER INH PRN (07:28)
[2018-12-07] MEDS: ATENOLOL 25 MG TAB PO SCH (09:00)
[2018-12-07] MEDS: TORSEMIDE 20 MG TAB PO SCH (09:00)
[2018-12-07] MEDS: POTASSIUM CHLORIDE 10 MEQ SR TABLET PO SCH ×2 (09:00→12:09)
[2018-12-07] MEDS ORDERED: predniSONE 20 MG TAB PO SCH (09:00)
[2018-12-07] MEDS: VITAMIN D 1,000 INTERNATIONAL UNITS TABLET PO SCH (09:45)
[2018-12-07] MEDS: ESCITALOPRAM OXALATE 10 MG TAB (LEXAPRO) PO SCH (09:45)
[2018-12-07] MEDS: MOM 30ML SUSPENSION UDC PO SCH (09:45)
[2018-12-07] MEDS: CYANOCOBALAMIN 500 MCG TAB PO SCH (09:45)
[2018-12-07] MEDS: BISACODYL 5 MG TAB PO SCH (09:46)
[2018-12-07] MEDS: ASPIRIN 81 MG ENTERIC TAB PO SCH (09:46)
[2018-12-07] MEDS: OMEPRAZOLE 20 MG CAP PO SCH (09:46)
[2018-12-07] MEDS: MULTIVITAMINS/MINERALS THERAP 1 TAB PO SCH (09:46)
[2018-12-07] MEDS: FUROSEMIDE 40 MG/4 ML VIAL (J1940) IV SCH (11:56)
[2018-12-07] MEDS: BISACODYL 10 MG SUPP PR SCH (11:56)
[2018-12-07] MEDS: SUCRALFATE 1 GM TAB PO SCH ×3 (11:56→20:46)
--- NOTE | 2018-12-07 13:00 | IPNPDOC ---
Text Note Date of Service The patient was seen on 12/07/18. NOTE SUBJECTIVE: Patient says the pain is still there . He points to the left lower chest, epigastrium and left upper abdomen region, has not had a bowel movement yet. Denies any SOB though he appears tachypneic and still requiring oxygen. no fever or chills. PHYSICAL EXAMINATION: General: He is well nourished, in no apparent distress. Head is normocephalic, atraumatic. Eyes: Extraocular movements are intact. Pupils equal, round, reactive to light. Neck is supple. No jugular venous pressure (JVP). Lungs: Diffuse rhonchi, minimal wheezing. Cardiovascular: Irregularly irregular rhythm. Normal S1, S2. Abdomen: Soft, nontender, nondistended, positive bowel sounds. Extremities: 2-3+ edema. No calf tenderness. Skin: Intact. No rashes, lesions or breakdown. Neurological: Alert and oriented (A and O) times three. No focal deficits. Labs and Radiology : Reviewed. ASSESSMENT and PLAN: The patient is a male with a significant past medical history of atrial fibrillation (AFib). He is not on anticoagulation. 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 He presented to the emergency room with complaints of pain in the upper abdomen as well. It is primarily the costophrenic angle area that has been going on for the previous day and a half nonstop, nonradiating associated with mild shortness of breath. He was hypoxic on presentation. He was admitted for evaluation of chest pain and hypoxia probably due to CHF exacerbation. Chest pain ACS ruled out. No pericardial effusion , No aortic dissection Most probably musculoskeletal vs pleuritic vs GI and stomach related. No EKG changes suggestive of pericarditis and no h/o recent respiratory tract infection. continue tylenol. will give sucralfate and increase his PPI CHF with preserved LV systolic function with mild exacerbation Diastolic function could not be determined as patient was in afib during echo Now clinically volume overloaded will give IV lasix, hold torsemide Mitral regurgitation with features of fluid overload will give IV Lasix A fib rate controlled Bp low normal will hold atenolol so that i can diurese him. Pulmonary interstitial fibrosis predominantly peripheral and Possible restrictive lung disease due to kyphoscoliosis. unknown if he has underlying COPD or not. i think these are at baseline will continue with home meds. Nebs, advair. Will dc steroids and azithromycin. Moderate to severe pulmonary hypertension with corpulmonale. continue lasix. Hypertension continue home meds. H/o CVA both ischemic and hemorrhagic Chronic elevation of right hemidiaphragm Rectal fecal stasis seen in CT abdomen and pelvis will give bowel regimen and enema if required. Colonic diverticulosis. Severe kyphoscoliosis. Skin cancers malignant melanoma of left forearm DVT prophylaxis ordered. VS,Fishbone, I+O VS, Fishbone, I+O Laboratory Tests 12/07/18 05:16 Red Blood Count 3.35 L, Mean Corpuscular Volume 93.7, Mean Corpuscular Hemoglobin 30.1, Mean Corpuscular Hemoglobin Concent 32.2, Red Cell Distribution Width 16.3 H, Calcium Level 8.8 Vital Signs Date Time Temp Pulse Resp B/P (MAP) Pulse Ox O2 Delivery O2 Flow Rate FiO2 12/07/18 06:00 98.4 94 20 104/56 (72) 94 2.0 12/05/18 21:27 Nasal Cannula I&O- Last 24 Hours up to 6 AM 12/07/18 06:00 Intake Total 780 ml Output Total 400 ml Balance 380 ml AKIRA ARCOS MD Dec 07, 2018 13:00
[2018-12-07 14:00] VITALS: BP 108/58
[2018-12-07] MEDS: ACETAMINOPHEN 500 MG TAB PO SCH ×2 (14:03→20:45)
[2018-12-07] MEDS ORDERED: MAGNESIUM CITRATE 300 ML BTL PO ONE (20:00)
[2018-12-07] MEDS: SENNA 8.6 MG TAB (SENOKOT) PO SCH (20:46)
[2018-12-07] MEDS: SIMVASTATIN 20 MG TAB PO SCH (20:46)
[2018-12-07 22:00] VITALS: BP 109/71
[2018-12-08] MEDS: IPRATROPIUM 0.5MG/ALBUTEROL 2.5MG INH SOL UD 3ML (DUONEB)(J7620) NEB SCH ×7 (04:00→23:46)
[2018-12-08] MEDS: HEPARIN SOD (PORCINE) 5000 UNITS/ML VIAL SC SCH ×3 (05:24→21:23)
[2018-12-08 06:00] VITALS: BP 119/64
[2018-12-08 06:09] LABS: HEMATOCRIT 31.9 % (42.0-52.0); HEMOGLOBIN 10.1 g/dl (13.5-17.5); MEAN CORPUSCULAR HEMOGLOBIN 29.9 pg (27.0-33.0); MEAN CORPUSCULAR HGB CONC 31.7 g/dl (32.0-36.5); MEAN CORPUSCULAR VOLUME 94.4 fl (80.0-96.0); PLATELET COUNT, AUTOMATED 165 10^3/uL (150-450); RED BLOOD COUNT 3.38 10^6/uL (4.30-6.10); WHITE BLOOD COUNT 6.9 10^3/uL (4.0-10.0)
[2018-12-08 06:35] LABS: BLOOD UREA NITROGEN 34 MG/DL (7-18); CALCIUM LEVEL 8.9 MG/DL (8.8-10.2); CARBON DIOXIDE LEVEL 34 MEQ/L (21-32); CHLORIDE LEVEL 101 MEQ/L (98-107); CREATININE FOR GFR 0.92 MG/DL (0.70-1.30); GLOMERULAR FILTRATION RATE > 60.0 (>35); GLUCOSE, FASTING 88 MG/DL (70-100); POTASSIUM SERUM 4.9 MEQ/L (3.5-5.1); SODIUM LEVEL 140 MEQ/L (136-145)
[2018-12-08] MEDS: ADVAIR HFA 115/21MCG INHALER INH PRN ×2 (07:15→20:06)
[2018-12-08 07:30] VITALS: BP 109/64
[2018-12-08] MEDS: SUCRALFATE 1 GM TAB PO SCH ×4 (08:26→21:22)
[2018-12-08] MEDS: ATENOLOL 25 MG TAB PO SCH (08:28)
[2018-12-08] MEDS: VITAMIN D 1,000 INTERNATIONAL UNITS TABLET PO SCH (08:29)
[2018-12-08] MEDS: MOM 30ML SUSPENSION UDC PO SCH (08:29)
[2018-12-08] MEDS: MULTIVITAMINS/MINERALS THERAP 1 TAB PO SCH (08:31)
[2018-12-08] MEDS: FUROSEMIDE 40 MG/4 ML VIAL (J1940) IV SCH (08:31)
[2018-12-08] MEDS: ESCITALOPRAM OXALATE 10 MG TAB (LEXAPRO) PO SCH (08:32)
[2018-12-08] MEDS: OMEPRAZOLE 20 MG CAP PO SCH (08:33)
[2018-12-08] MEDS: ASPIRIN 81 MG ENTERIC TAB PO SCH (08:33)
[2018-12-08] MEDS: BISACODYL 10 MG SUPP PR SCH (08:34)
[2018-12-08] MEDS: TORSEMIDE 20 MG TAB PO SCH (08:35)
[2018-12-08] MEDS: CYANOCOBALAMIN 500 MCG TAB PO SCH (08:35)
[2018-12-08] MEDS: ACETAMINOPHEN 500 MG TAB PO SCH ×2 (08:38→21:22)
[2018-12-08] MEDS: BISACODYL 5 MG TAB PO SCH (08:38)
[2018-12-08] MEDS ORDERED: GI COCKTAIL 50ML BTL(HYOSCYAMINE/MAALOX/LIDOCAINE VISCOUS)(1:3:1) PO PRN (09:00)
[2018-12-08] MEDS: POTASSIUM CHLORIDE 10 MEQ SR TABLET PO SCH (09:00)
[2018-12-08] MEDS: LACTULOSE 20 GM/30 ML SYRUP UD PO SCH ×5 (11:48→21:15)
--- NOTE | 2018-12-08 12:29 | IPNPDOC ---
Text Note Date of Service The patient was seen on 12/08/18. NOTE SUBJECTIVE: THis am patient complaining of left upper abdominal pain and back pain. He has not been out of bed since yesterday. He has not had bowel movements yet . Aggressive bowel regimen has been started hopefully there will be a good result today. He does not complain of SOB but is still requiring oxygen. He does continue to complain of chest pain off and on. Leg swelling is unchanged. PHYSICAL EXAMINATION: General: He is well nourished, in no apparent distress. Head is normocephalic, atraumatic. Eyes: Extraocular movements are intact. Pupils equal, round, reactive to light. Neck is supple. No jugular venous pressure (JVP). Lungs: Diffuse rhonchi, minimal wheezing. Cardiovascular: Irregularly irregular rhythm. Normal S1, S2. Abdomen: Soft, nontender, nondistended, positive bowel sounds. Extremities: 2-3+ edema. No calf tenderness. Skin: Intact. No rashes, lesions or breakdown. Neurological: Alert and oriented (A and O) times three. No focal deficits. Labs and Radiology : Reviewed. ASSESSMENT and PLAN: The patient is a male with a significant past medical history of atrial fibrillation (AFib). He is not on anticoagulation. 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 He presented to the emergency room with complaints of pain in the upper abdomen as well. It is primarily the costophrenic angle area that has been going on for the previous day and a half nonstop, nonradiating associated with mild shortness of breath. He was hypoxic on presentation. He was admitted for evaluation of chest pain and hypoxia probably due to CHF exacerbation. Chest pain ACS ruled out. No pericardial effusion , No aortic dissection Most probably musculoskeletal vs pleuritic vs GI and stomach related. No EKG changes suggestive of pericarditis and no h/o recent respiratory tract infection. continue tylenol. will give sucralfate and increase his PPI will also give GI coctail. Fecal impaction as seen in CT scan this could be causing abdominal pain and discomfort too. started on aggresive bowel regiman CHF with preserved LV systolic function with mild exacerbation Diastolic function could not be determined as patient was in afib during echo Now clinically volume overloaded will give IV lasix, hold torsemide on oxygen , try to wean as tolerated. Mitral regurgitation with features of fluid overload will give IV Lasix A fib rate now becoming uncontrolled as i have not given him his atenolol last to days. will restart at lower dosage today. Pulmonary interstitial fibrosis predominantly peripheral and Possible restrictive lung disease due to kyphoscoliosis. unknown if he has underlying COPD or not. i think these are at baseline will continue with home meds. Nebs, advair. Will dc steroids and azithromycin. Moderate to severe pulmonary hypertension with corpulmonale. continue lasix. Hypertension continue home meds. H/o CVA both ischemic and hemorrhagic Chronic elevation of right hemidiaphragm Rectal fecal stasis seen in CT abdomen and pelvis will give bowel regimen and enema if required. Colonic diverticulosis. Severe kyphoscoliosis. Skin cancers malignant melanoma of left forearm DVT prophylaxis ordered. VS,Fishbone, I+O VS, Fishbone, I+O Laboratory Tests 12/08/18 05:22 Red Blood Count 3.38 L, Mean Corpuscular Volume 94.4, Mean Corpuscular Hemoglobin 29.9, Mean Corpuscular Hemoglobin Concent 31.7 L, Red Cell Distribution Width 16.6 H, Calcium Level 8.9 Vital Signs Date Time Temp Pulse Resp B/P (MAP) Pulse Ox O2 Delivery O2 Flow Rate FiO2 12/08/18 08:28 105 109/64 12/08/18 07:30 98.2 20 94 2.0 12/05/18 21:27 Nasal Cannula I&O- Last 24 Hours up to 6 AM 12/08/18 06:00 Intake Total 920 ml Output Total 0 ml Balance 920 ml AKIRA ARCOS MD Dec 08, 2018 12:29
[2018-12-08 14:29] VITALS: BP 102/55
[2018-12-08] MEDS: SIMVASTATIN 20 MG TAB PO SCH (21:22)
[2018-12-08] MEDS: ATENOLOL 12.5MG PER 1/2 TABLET PO SCH (21:23)
[2018-12-08] MEDS: SENNA 8.6 MG TAB (SENOKOT) PO SCH (21:23)
[2018-12-08 22:00] VITALS: BP 109/81
[2018-12-09] MEDS: LACTULOSE 20 GM/30 ML SYRUP UD PO SCH ×8 (01:00→21:19)
[2018-12-09] MEDS: IPRATROPIUM 0.5MG/ALBUTEROL 2.5MG INH SOL UD 3ML (DUONEB)(J7620) NEB SCH ×6 (02:27→23:40)
[2018-12-09] MEDS: HEPARIN SOD (PORCINE) 5000 UNITS/ML VIAL SC SCH ×3 (05:28→21:21)
[2018-12-09 06:00] VITALS: BP 105/59
[2018-12-09 06:03] LABS: HEMATOCRIT 31.9 % (42.0-52.0); HEMOGLOBIN 10.1 g/dl (13.5-17.5); MEAN CORPUSCULAR HGB CONC 31.7 g/dl (32.0-36.5); MEAN CORPUSCULAR VOLUME 94.7 fl (80.0-96.0); PLATELET COUNT, AUTOMATED 161 10^3/uL (150-450); RED BLOOD COUNT 3.37 10^6/uL (4.30-6.10); WHITE BLOOD COUNT 5.8 10^3/uL (4.0-10.0)
[2018-12-09 06:25] LABS: BLOOD UREA NITROGEN 35 MG/DL (7-18); CARBON DIOXIDE LEVEL 35 MEQ/L (21-32); CHLORIDE LEVEL 101 MEQ/L (98-107); CREATININE FOR GFR 0.93 MG/DL (0.70-1.30); GLOMERULAR FILTRATION RATE > 60.0 (>35); GLUCOSE, FASTING 92 MG/DL (70-100); POTASSIUM SERUM 4.6 MEQ/L (3.5-5.1); SODIUM LEVEL 140 MEQ/L (136-145)
[2018-12-09] MEDS: ADVAIR HFA 115/21MCG INHALER INH PRN (07:07)
[2018-12-09] MEDS: BISACODYL 10 MG SUPP PR SCH (09:00)
[2018-12-09] MEDS: ATENOLOL 12.5MG PER 1/2 TABLET PO SCH ×2 (09:00→21:20)
[2018-12-09] MEDS: SUCRALFATE 1 GM TAB PO SCH ×4 (09:30→21:21)
[2018-12-09] MEDS: OMEPRAZOLE 20 MG CAP PO SCH (09:31)
[2018-12-09] MEDS: ASPIRIN 81 MG ENTERIC TAB PO SCH (09:31)
[2018-12-09] MEDS: BISACODYL 5 MG TAB PO SCH (09:31)
[2018-12-09] MEDS: POTASSIUM CHLORIDE 10 MEQ SR TABLET PO SCH (09:31)
[2018-12-09] MEDS: MOM 30ML SUSPENSION UDC PO SCH (09:31)
[2018-12-09] MEDS: ESCITALOPRAM OXALATE 10 MG TAB (LEXAPRO) PO SCH (09:31)
[2018-12-09] MEDS: MULTIVITAMINS/MINERALS THERAP 1 TAB PO SCH (09:35)
[2018-12-09] MEDS: VITAMIN D 1,000 INTERNATIONAL UNITS TABLET PO SCH (09:36)
[2018-12-09] MEDS: CYANOCOBALAMIN 500 MCG TAB PO SCH (09:36)
[2018-12-09] MEDS: ACETAMINOPHEN 500 MG TAB PO SCH ×2 (09:36→21:20)
[2018-12-09] MEDS: FUROSEMIDE 40 MG/4 ML VIAL (J1940) IV SCH (09:37)
--- NOTE | 2018-12-09 10:42 | IPNPDOC ---
Date Seen The patient was seen on 12/09/18. Progress Note SUBJECTIVE: Pt denies sob, chest pain, pressure, tightness. had 3 bm yesterday but still w 3+ LE edema despite iv lasix but sbp 100 and hr uncontrolled from afib and back on atenolol PHYSICAL EXAMINATION: Vitals: pls see below General: He is well nourished, in no apparent distress. Head is normocephalic, atraumatic. Eyes: Extraocular movements are intact. Pupils equal, round, reactive to l ight. Neck is supple. No jugular venous pressure (JVP). Lungs: Diffuse rhonchi, minimal wheezing. Cardiovascular: Irregularly irregular rhythm. Normal S1, S2. Abdomen: Soft, nontender, nondistended, positive bowel sounds. Extremities: 2-3+ edema. No calf tenderness. Skin: Intact. No rashes, lesions or breakdown. Neurological: Alert and oriented (A and O) times three. No focal deficits. Labs and Radiology : Reviewed. ASSESSMENT and PLAN: The patient is a male with a significant past medical history of atrial fibrillation (AFib). He is not on anticoagulation. 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 He presented to the emergency room with complaints of pain in the upper abdomen as well. It is primarily the costophrenic angle area that has been going on for the previous day and a half nonstop, nonradiating associated with mild shortness of breath. He was hypoxic on presentation. He was admitted for evaluation of chest pain and hypoxia probably due to CHF exacerbation. Chest pain ACS ruled out. No pericardial effusion , No aortic dissection Most probably musculoskeletal vs pleuritic vs GI and stomach related. No EKG changes suggestive of pericarditis and no h/o recent respiratory tract infection. continue tylenol. will give sucralfate and increase his PPI will also give GI coctail. Fecal impaction as seen in CT scan this could be causing abdominal pain and discomfort too. started on aggresive bowel regiman CHF with preserved LV systolic function with mild exacerbation Diastolic function could not be determined as patient was in afib during echo Now clinically volume overloaded on IV lasix, hold torsemide on oxygen , try to wean as tolerated. strict i/o daily weights and 1.5 liter fluid restriction zaroxylyn. Mitral regurgitation with features of fluid overload will give IV Lasix A fib on low dose atenolol Pulmonary interstitial fibrosis predominantly peripheral and Possible restrictive lung disease due to kyphoscoliosis. unknown if he has underlying COPD or not. i think these are at baseline will continue with home meds. Nebs, advair. Will dc steroids and azithromycin. Moderate to severe pulmonary hypertension with corpulmonale. continue lasix. Hypertension continue home meds. H/o CVA both ischemic and hemorrhagic Chronic elevation of right hemidiaphragm Rectal fecal stasis seen in CT abdomen and pelvis will give bowel regimen and enema if required. Colonic diverticulosis. Severe kyphoscoliosis. Skin cancers malignant melanoma of left forearm DVT prophylaxis ordered. disposition: in 2-3 days , PT clearance. VS, I&O, 24H, Fishbone Vital Signs/I&O Vital Signs Date Time Temp Pulse Resp B/P (MAP) Pulse Ox O2 Delivery O2 Flow Rate FiO2 12/09/18 09:00 80 104/60 12/09/18 06:00 98.2 18 92 2.0 12/05/18 21:27 Nasal Cannula I&O- Last 24 Hours up to 6 AM 12/09/18 06:00 Intake Total 1630 ml Output Total 300 ml Balance 1330 ml Laboratory Data 24H LABS Laboratory Tests 2 12/09/18 05:22: Nucleated Red Blood Cells % (auto) 0.0, Anion Gap 4L, Glomerular Filtration Rate > 60.0, Blood Urea Nitrogen 35H, Creatinine 0.93, Sodium Level 140, Potassium Level 4.6, Chloride Level 101, Carbon Dioxide Level 35H, Calcium Level 9.0 CBC/BMP Laboratory Tests 12/09/18 05:22 Red Blood Count 3.37 L, Mean Corpuscular Volume 94.7, Mean Corpuscular Hemoglobin 30.0, Mean Corpuscular Hemoglobin Concent 31.7 L, Red Cell Distribution Width 16.7 H, Calcium Level 9.0 Microbiology Microbiology 12/05/18 Blood Culture - Preliminary, Resulted No Growth after 72 hours. All specime... 12/05/18 Blood Culture - Preliminary, Resulted No Growth after 72 hours. All specime... 12/05/18 MRSA Screen - Final, Complete DAINA GROSSMAN MD Dec 09, 2018 10:28
[2018-12-09] MEDS ORDERED: metOLazone 2.5 MG TAB PO ONE (12:00)
[2018-12-09 14:00] VITALS: BP 103/55
[2018-12-09] MEDS: SENNA 8.6 MG TAB (SENOKOT) PO SCH (21:20)
[2018-12-09] MEDS: SIMVASTATIN 20 MG TAB PO SCH (21:21)
[2018-12-09 22:00] VITALS: BP 106/54
[2018-12-10] MEDS: LACTULOSE 20 GM/30 ML SYRUP UD PO SCH ×3 (01:18→06:29)
[2018-12-10] MEDS: IPRATROPIUM 0.5MG/ALBUTEROL 2.5MG INH SOL UD 3ML (DUONEB)(J7620) NEB SCH ×6 (03:57→23:39)
[2018-12-10 05:56] LABS: HEMATOCRIT 31.6 % (42.0-52.0); HEMOGLOBIN 9.9 g/dl (13.5-17.5); MEAN CORPUSCULAR HEMOGLOBIN 30.1 pg (27.0-33.0); MEAN CORPUSCULAR HGB CONC 31.3 g/dl (32.0-36.5); PLATELET COUNT, AUTOMATED 153 10^3/uL (150-450); RED BLOOD COUNT 3.29 10^6/uL (4.30-6.10); WHITE BLOOD COUNT 5.1 10^3/uL (4.0-10.0)
[2018-12-10 06:00] VITALS: BP 107/62
[2018-12-10 06:17] LABS: BLOOD UREA NITROGEN 30 MG/DL (7-18); CALCIUM LEVEL 8.8 MG/DL (8.8-10.2); CARBON DIOXIDE LEVEL 35 MEQ/L (21-32); CHLORIDE LEVEL 105 MEQ/L (98-107); CREATININE FOR GFR 0.86 MG/DL (0.70-1.30); GLOMERULAR FILTRATION RATE > 60.0 (>35); GLUCOSE, FASTING 95 MG/DL (70-100); POTASSIUM SERUM 4.1 MEQ/L (3.5-5.1); SODIUM LEVEL 143 MEQ/L (136-145)
[2018-12-10] MEDS: HEPARIN SOD (PORCINE) 5000 UNITS/ML VIAL SC SCH ×3 (06:30→22:59)
[2018-12-10] MEDS: SUCRALFATE 1 GM TAB PO SCH ×4 (08:09→20:10)
[2018-12-10] MEDS: FUROSEMIDE 20 MG/2 ML VIAL (J1940) IV SCH ×3 (08:09→20:09)
[2018-12-10] MEDS: ASPIRIN 81 MG ENTERIC TAB PO SCH (08:10)
[2018-12-10] MEDS: ESCITALOPRAM OXALATE 10 MG TAB (LEXAPRO) PO SCH (08:10)
[2018-12-10] MEDS: BISACODYL 5 MG TAB PO SCH (08:10)
[2018-12-10] MEDS: OMEPRAZOLE 20 MG CAP PO SCH (08:11)
[2018-12-10] MEDS: MOM 30ML SUSPENSION UDC PO SCH (08:11)
[2018-12-10] MEDS: POTASSIUM CHLORIDE 10 MEQ SR TABLET PO SCH (08:11)
[2018-12-10] MEDS: ATENOLOL 12.5MG PER 1/2 TABLET PO SCH (08:12)
[2018-12-10] MEDS: MULTIVITAMINS/MINERALS THERAP 1 TAB PO SCH (08:12)
[2018-12-10] MEDS: ACETAMINOPHEN 500 MG TAB PO SCH ×2 (08:12→20:10)
[2018-12-10] MEDS: CYANOCOBALAMIN 500 MCG TAB PO SCH (08:12)
[2018-12-10] MEDS: VITAMIN D 1,000 INTERNATIONAL UNITS TABLET PO SCH (08:13)
[2018-12-10] MEDS: BISACODYL 10 MG SUPP PR SCH (08:14)
--- NOTE | 2018-12-10 09:31 | IPNPDOC ---
Date Seen The patient was seen on 12/10/18. Progress Note SUBJECTIVE: Pt refused PT yesterday. remains with 3+edema.dryweight 186lbs per pt. walks 40-50 ft at home. "I go wherever I want." no stairs. 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 some sob on o2. changed to iv lasix. with fluid restriction and diuresis,willneed to monitor for orthostasis. PHYSICAL EXAMINATION: Vitals: pls see below General: He is well nourished, in no apparent distress. Head is normocephalic, atraumatic. Eyes: Extraocular movements are intact. Pupils equal, round, reactive to light. Neck is supple. No jugular venous pressure (JVP). Lungs: Diffuse rhonchi, minimal wheezing. Cardiovascular: Irregularly irregular rhythm. Normal S1, S2. Abdomen: Soft, nontender, nondistended, positive bowel sounds. Extremities: 2-3+ edema. No calf tenderness. Skin: Intact. No rashes, lesions or breakdown. Neurological: Alert and oriented (A and O) times three. No focal deficits. Labs and Radiology : Reviewed. ASSESSMENT and PLAN: The patient is a male with a significant past medical history of atrial fibrillation (AFib). He is not on anticoagulation. 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 He presented to the emergency room with complaints of pain in the upper abdomen as well. It is primarily the costophrenic angle area that has been going on for the previous day and a half nonstop, nonradiating associated with mild shortness of breath. He was hypoxic on presentation. He was admitted for evaluation of chest pain and hypoxia probably due to CHF exacerbation. Chest pain ACS ruled out. No pericardial effusion , No aortic dissection Most probably musculoskeletal vs pleuritic vs GI and stomach related. No EKG changes suggestive of pericarditis and no h/o recent respiratory tract infection . continue tylenol. will give sucralfate and increase his PPI will also give GI coctail. Fecal impaction as seen in CT scan this could be causing abdominal pain and discomfort too. started on aggresive bowel regiman CHF with preserved LV systolic function with mild exacerbation Diastolic function could not be determined as patient was in afib during echo Now clinically volume overloaded on IV lasix, hold torsemide on oxygen , try to wean as tolerated. strict i/o daily weights and 1.5 liter fluid restriction atul. remains with 3+edema.dryweight 186lbs per pt. walks 40-50 ft at home. "I go wherever I want." no stairs. 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 some sob on o2. changed to iv lasix. with fluid restriction and diuresis,willneed to monitor for orthostasis. Mitral regurgitation with features of fluid overload will give IV Lasix A fib on low dose atenolol Pulmonary interstitial fibrosis predominantly peripheral and Possible restrictive lung disease due to kyphoscoliosis. unknown if he has underlying COPD or not. i think these are at baseline will continue with home meds. Nebs, advair. Will dc steroids and azithromycin. Moderate to severe pulmonary hypertension with corpulmonale. continue lasix. Hypertension continue home meds. H/o CVA both ischemic and hemorrhagic Chronic elevation of right hemidiaphragm Rectal fecal stasis seen in CT abdomen and pelvis will give bowel regimen and enema if required. Colonic diverticulosis. Severe kyphoscoliosis. Skin cancers malignant melanoma of left forearm DVT prophylaxis ordered. disposition: in 2-3 days , PT clearance. VS, I&O, 24H, Fishbone Vital Signs/I&O Vital Signs Date Time Temp Pulse Resp B/P (MAP) Pulse Ox O2 Delivery O2 Flow Rate FiO2 12/10/18 06:00 98.1 70 19 107/62 (77) 94 2.0 12/05/18 21:27 Nasal Cannula I&O- Last 24 Hours up to 6 AM 12/10/18 06:00 Intake Total 2190 ml Output Total 725 ml Balance 1465 ml Laboratory Data 24H LABS Laboratory Tests 2 12/10/18 05:19: Nucleated Red Blood Cells % (auto) 0.0, Anion Gap 3L, Glomerular Filtration Rate > 60.0, Blood Urea Nitrogen 30H, Creatinine 0.86, Sodium Level 143, Potassium Level 4.1, Chloride Level 105, Carbon Dioxide Level 35H, Calcium Level 8.8 CBC/BMP Laboratory Tests 12/10/18 05:19 Red Blood Count 3.29 L, Mean Corpuscular Volume 96.0, Mean Corpuscular Hemoglobin 30.1, Mean Corpuscular Hemoglobin Concent 31.3 L, Red Cell Distrib ution Width 16.7 H, Calcium Level 8.8 Microbiology Microbiology 12/05/18 Blood Culture - Preliminary, Resulted No Growth after 72 hours. All specime... 12/05/18 Blood Culture - Preliminary, Resulted No Growth after 72 hours. All specime... 12/05/18 MRSA Screen - Final, Complete DAINA GROSSMAN MD Dec 10, 2018 07:18
[2018-12-10 09:48] LABS: NT-PRO BNP 364 PG/ML (<450)
--- NOTE | 2018-12-10 10:07 | REP ---
Chest one-view HISTORY: Shortness of breath Comparison: 12/05/2018 There is elevation of the right hemidiaphragm. There has been a decrease in the parenchymal densities present in the lungs consistent with infiltrates or edema. The cardiac silhouette is enlarged. The pulmonary vasculature is normal in appearance. Impression: 1. There has been a decrease in the parenchymal densities in the lungs consistent with bilateral infiltrates or edema. 2. Cardiomegaly. Electronically Signed by Eliud Nelson MD 12/10/2018 09:59 A
[2018-12-10 14:00] VITALS: BP 110/56
[2018-12-10 18:30] LABS: BLOOD UREA NITROGEN 26 MG/DL (7-18); CARBON DIOXIDE LEVEL 34 MEQ/L (21-32); CHLORIDE LEVEL 102 MEQ/L (98-107); CREATININE FOR GFR 0.86 MG/DL (0.70-1.30); GLOMERULAR FILTRATION RATE > 60.0 (>35); GLUCOSE, FASTING 116 MG/DL (70-100); MAGNESIUM LEVEL 2.6 MG/DL (1.8-2.4); POTASSIUM SERUM 3.8 MEQ/L (3.5-5.1); SODIUM LEVEL 143 MEQ/L (136-145)
[2018-12-10] MEDS: SENNA 8.6 MG TAB (SENOKOT) PO SCH (20:10)
[2018-12-10] MEDS: SIMVASTATIN 20 MG TAB PO SCH (20:10)
[2018-12-10 21:00] VITALS: BP 112/60
[2018-12-10 22:00] VITALS: BP 112/60
[2018-12-11] MEDS: FUROSEMIDE 20 MG/2 ML VIAL (J1940) IV SCH ×4 (02:30→20:22)
[2018-12-11] MEDS: IPRATROPIUM 0.5MG/ALBUTEROL 2.5MG INH SOL UD 3ML (DUONEB)(J7620) NEB SCH ×5 (03:17→18:15)
[2018-12-11 05:40] LABS: HEMATOCRIT 30.4 % (42.0-52.0); HEMOGLOBIN 9.8 g/dl (13.5-17.5); MEAN CORPUSCULAR HEMOGLOBIN 30.2 pg (27.0-33.0); MEAN CORPUSCULAR HGB CONC 32.2 g/dl (32.0-36.5); MEAN CORPUSCULAR VOLUME 93.8 fl (80.0-96.0); PLATELET COUNT, AUTOMATED 141 10^3/uL (150-450); RED BLOOD COUNT 3.24 10^6/uL (4.30-6.10)
[2018-12-11 06:00] VITALS: BP 101/58
[2018-12-11 06:09] LABS: BLOOD UREA NITROGEN 23 MG/DL (7-18); CALCIUM LEVEL 8.6 MG/DL (8.8-10.2); CARBON DIOXIDE LEVEL 38 MEQ/L (21-32); CHLORIDE LEVEL 101 MEQ/L (98-107); CREATININE FOR GFR 0.76 MG/DL (0.70-1.30); GLOMERULAR FILTRATION RATE > 60.0 (>35); GLUCOSE, FASTING 88 MG/DL (70-100); MAGNESIUM LEVEL 2.2 MG/DL (1.8-2.4); POTASSIUM SERUM 3.5 MEQ/L (3.5-5.1); SODIUM LEVEL 143 MEQ/L (136-145)
[2018-12-11] MEDS: HEPARIN SOD (PORCINE) 5000 UNITS/ML VIAL SC SCH ×3 (06:37→23:26)
[2018-12-11] MEDS: SUCRALFATE 1 GM TAB PO SCH ×4 (06:37→20:21)
[2018-12-11] MEDS: ADVAIR HFA 115/21MCG INHALER INH PRN ×2 (07:09→18:15)
[2018-12-11] MEDS: BISACODYL 10 MG SUPP PR SCH ×2 (08:36→08:51)
[2018-12-11] MEDS: MOM 30ML SUSPENSION UDC PO SCH (08:36)
[2018-12-11] MEDS: POTASSIUM CHLORIDE 10 MEQ SR TABLET PO SCH (08:37)
[2018-12-11] MEDS: BISACODYL 5 MG TAB PO SCH (08:37)
[2018-12-11] MEDS: CYANOCOBALAMIN 500 MCG TAB PO SCH (08:37)
[2018-12-11] MEDS: VITAMIN D 1,000 INTERNATIONAL UNITS TABLET PO SCH (08:37)
[2018-12-11] MEDS: ACETAMINOPHEN 500 MG TAB PO SCH ×2 (08:38→20:24)
[2018-12-11] MEDS: MULTIVITAMINS/MINERALS THERAP 1 TAB PO SCH (08:38)
[2018-12-11] MEDS: OMEPRAZOLE 20 MG CAP PO SCH (08:38)
[2018-12-11] MEDS: ASPIRIN 81 MG ENTERIC TAB PO SCH (08:38)
[2018-12-11] MEDS: ESCITALOPRAM OXALATE 10 MG TAB (LEXAPRO) PO SCH (08:38)
[2018-12-11] MEDS: ATENOLOL 12.5MG PER 1/2 TABLET PO SCH (08:47)
--- NOTE | 2018-12-11 11:32 | IPNPDOC ---
Date Seen The patient was seen on 12/11/18. Progress Note SUBJECTIVE: Pt tolerating his iv lasix q6hrs w/o dizziness, lightheadedness. net negative balance overnight an decreased weight. no sob, cp, pressure , tightness. still w 3+LE edema. no cough. passed HSE, but still requires net negative lasix diuresis. in agreement to stay for further diuresis. sbp 100mmHg. No c/o thirst. pt's urine is white, denies any concentrated yellow or orange urine. PHYSICAL EXAMINATION: Vitals: pls see below General: He is well nourished, in no apparent distress. Head is normocephalic, atraumatic. Eyes: Extraocular movements are intact. Pupils equal, round, reactive to light. Neck is supple. No jugular venous pressure (JVP). Lungs: Diffuse rhonchi, minimal wheezing. Cardiovascular: Irregularly irregular rhythm. Normal S1, S2. Abdomen: Soft, nontender, nondistended, positive bowel sounds. Extremities: 2-3+ edema. No calf tenderness. Skin: Intact. No rashes, lesions or breakdown. Neurological: Alert and oriented (A and O) times three. No focal deficits. Labs and Radiology : Reviewed. ASSESSMENT and PLAN: The patient is a male with a significant past medical history of atrial fibrillation (AFib). He is not on anticoagulation. 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 He presented to the emergency room with complaints of pain in the upper abdomen as well. It is primarily the costophrenic angle area that has been going on for the previous day and a half nonstop, nonradiating associated with mild shortness of breath. He was hypoxic on presentation. He was admitted for evaluation of chest pain and hypoxia probably due to CHF exacerbation. Chest pain ACS ruled out. No pericardial effusion , No aortic dissection Most probably musculoskeletal vs pleuritic vs GI and stomach related. No EKG changes suggestive of pericarditis and no h/o recent respiratory tract infecti on. continue tylenol. will give sucralfate and increase his PPI will also give GI coctail. Fecal impaction as seen in CT scan this could be causing abdominal pain and discomfort too. started on aggresive bowel regiman CHF with preserved LV systolic function with mild exacerbation Diastolic function could not be determined as patient was in afib during echo Now clinically volume overloaded on IV lasix, hold torsemide on oxygen , try to wean as tolerated. strict i/o daily weights and 1.5 liter fluid restriction atul. remains with 3+edema.dryweight 186lbs per pt. walks 40-50 ft at home. "I go wherever I want." no stairs. sees his principal accounts clerk 3-4 x/year. some sob on o2. changed to iv lasix. with fluid restriction and diuresis,willneed to monitor for orthostasis. Mitral regurgitation with features of fluid overload will give IV Lasix A fib on low dose atenolol Pulmonary interstitial fibrosis predominantly peripheral and Possible restrictive lung disease due to kyphoscoliosis. unknown if he has underlying COPD or not. i think these are at baseline will continue with home meds. Nebs, advair. Will dc steroids and azithromycin. Moderate to severe pulmonary hypertension with corpulmonale. continue lasix. Hypertension continue home meds. H/o CVA both ischemic and hemorrhagic Chronic elevation of right hemidiaphragm Rectal fecal stasis seen in CT abdomen and pelvis will give bowel regimen and enema if required. Colonic diverticulosis. Severe kyphoscoliosis. Skin cancers malignant melanoma of left forearm DVT prophylaxis ordered. disposition: needs diuresis continued. VS, I&O, 24H, Michael[place] Vital Signs/I&O Vital Signs Date Time Temp Pulse Resp B/P (MAP) Pulse Ox O2 Delivery O2 Flow Rate FiO2 12/11/18 08:47 77 101/53 12/11/18 06:00 98.1 18 93 1.0 12/05/18 21:27 Nasal Cannula I&O- Last 24 Hours up to 6 AM 12/11/18 06:00 Intake Total 680 ml Output Total 1300 ml Balance -620 ml Laboratory Data 24H LABS Laboratory Tests 2 12/10/18 17:55: Anion Gap 7L, Glomerular Filtration Rate > 60.0, Blood Urea Nitrogen 26H, Creatinine 0.86, Sodium Level 143, Potassium Level 3.8, Chloride Level 102, Carbon Dioxide Level 34H, Calcium Level 9.0, Magnesium Level 2.6H 12/11/18 05:28: Anion Gap 4L, Glomerular Filtration Rate > 60.0, Blood Urea Nitrogen 23H, Creatinine 0.76, Sodium Level 143, Potassium Level 3.5, Chloride Level 101, Carbon Dioxide Level 38H, Calcium Level 8.6L, Magnesium Level 2.2, Nucleated Red Blood Cells % (auto) 0.0 CBC/BMP Laboratory Tests 12/10/18 17:55 Calcium Level 9.0 12/11/18 05:28 Calcium Level 8.6 L, Red Blood Count 3.24 L, Mean Corpuscular Volume 93.8, Mean Corpuscular Hemoglobin 30.2, Mean Corpuscular Hemoglobin Concent 32.2, Red Cell Distribution Width 16.4 H Microbiology Microbiology 12/05/18 Blood Culture - Final, Complete NO GROWTH AFTER 5 DAYS 12/05/18 Blood Culture - Final, Complete NO GROWTH AFTER 5 DAYS 12/05/18 MRSA Screen - Final, Complete DAINA GROSSMAN MD Dec 11, 2018 11:32
[2018-12-11 14:00] VITALS: BP 110/59
[2018-12-11 18:42] LABS: BLOOD UREA NITROGEN 25 MG/DL (7-18); CARBON DIOXIDE LEVEL 36 MEQ/L (21-32); CHLORIDE LEVEL 100 MEQ/L (98-107); GLOMERULAR FILTRATION RATE > 60.0 (>35); GLUCOSE, FASTING 108 MG/DL (70-100); MAGNESIUM LEVEL 2.3 MG/DL (1.8-2.4); POTASSIUM SERUM 3.7 MEQ/L (3.5-5.1); SODIUM LEVEL 141 MEQ/L (136-145)
[2018-12-11] MEDS: SENNA 8.6 MG TAB (SENOKOT) PO SCH (20:24)
[2018-12-11] MEDS: SIMVASTATIN 20 MG TAB PO SCH (20:24)
[2018-12-11 21:00] VITALS: BP 112/60
[2018-12-12] MEDS: IPRATROPIUM 0.5MG/ALBUTEROL 2.5MG INH SOL UD 3ML (DUONEB)(J7620) NEB SCH ×7 (00:30→23:22)
[2018-12-12] MEDS: FUROSEMIDE 20 MG/2 ML VIAL (J1940) IV SCH ×4 (02:36→21:07)
[2018-12-12] MEDS: HEPARIN SOD (PORCINE) 5000 UNITS/ML VIAL SC SCH ×3 (06:11→21:06)
[2018-12-12 06:22] LABS: HEMATOCRIT 32.3 % (42.0-52.0); HEMOGLOBIN 10.4 g/dl (13.5-17.5); MEAN CORPUSCULAR HEMOGLOBIN 30.2 pg (27.0-33.0); MEAN CORPUSCULAR HGB CONC 32.2 g/dl (32.0-36.5); MEAN CORPUSCULAR VOLUME 93.9 fl (80.0-96.0); PLATELET COUNT, AUTOMATED 140 10^3/uL (150-450); RED BLOOD COUNT 3.44 10^6/uL (4.30-6.10); WHITE BLOOD COUNT 4.9 10^3/uL (4.0-10.0)
[2018-12-12 06:37] LABS: BLOOD UREA NITROGEN 26 MG/DL (7-18); CALCIUM LEVEL 8.6 MG/DL (8.8-10.2); CARBON DIOXIDE LEVEL 39 MEQ/L (21-32); CHLORIDE LEVEL 99 MEQ/L (98-107); CREATININE FOR GFR 0.77 MG/DL (0.70-1.30); GLOMERULAR FILTRATION RATE > 60.0 (>35); GLUCOSE, FASTING 91 MG/DL (70-100); MAGNESIUM LEVEL 2.1 MG/DL (1.8-2.4); POTASSIUM SERUM 3.3 MEQ/L (3.5-5.1); SODIUM LEVEL 141 MEQ/L (136-145)
[2018-12-12] MEDS: BISACODYL 5 MG TAB PO SCH (09:00)
[2018-12-12] MEDS: BISACODYL 10 MG SUPP PR SCH (09:00)
[2018-12-12] MEDS: MOM 30ML SUSPENSION UDC PO SCH (09:00)
[2018-12-12] MEDS: POTASSIUM CHLORIDE 10 MEQ SR TABLET PO SCH ×2 (09:30→21:04)
[2018-12-12] MEDS: OMEPRAZOLE 20 MG CAP PO SCH (09:32)
[2018-12-12] MEDS: ESCITALOPRAM OXALATE 10 MG TAB (LEXAPRO) PO SCH (09:32)
[2018-12-12] MEDS: VITAMIN D 1,000 INTERNATIONAL UNITS TABLET PO SCH (09:32)
[2018-12-12] MEDS: CYANOCOBALAMIN 500 MCG TAB PO SCH (09:32)
[2018-12-12] MEDS: ATENOLOL 12.5MG PER 1/2 TABLET PO SCH (09:32)
[2018-12-12] MEDS: ASPIRIN 81 MG ENTERIC TAB PO SCH (09:32)
[2018-12-12] MEDS: MULTIVITAMINS/MINERALS THERAP 1 TAB PO SCH (09:32)
[2018-12-12] MEDS: SUCRALFATE 1 GM TAB PO SCH ×4 (09:33→21:00)
[2018-12-12] MEDS: ACETAMINOPHEN 500 MG TAB PO SCH ×2 (09:33→21:03)
--- NOTE | 2018-12-12 11:58 | IPNPDOC ---
Date Seen The patient was seen on 12/12/18. Progress Note SUBJECTIVE: I/O and daily weights reviewed. No new issues overnight. No new c/o this morning. Pt tolerating his iv lasix q6hrs w/o dizziness, lightheadedness. net negative balance overnight an decreased weight. no sob, cp, pressure , tightness. improved in his LE edema. no cough. passed HSE, but still requires net negative lasix diuresis.No c/o thirst. pt's urine is white, denies any concentrated yellow or orange urine. PHYSICAL EXAMINATION: Vitals: pls see below General: He is well nourished, in no apparent distress. Head is normocephalic, atraumatic. Eyes: Extraocular movements are intact. Pupils equal, round, reactive to light. Neck is supple. No jugular venous pressure (JVP). Lungs: Diffuse rhonchi, minimal wheezing. Cardiovascular: Irregularly irregular rhythm. Normal S1, S2. Abdomen: Soft, nontender, nondistended, positive bowel sounds. Extremities: 2-3+ edema. No calf tenderness. Skin: Intact. No rashes, lesions or breakdown. Neurological: Alert and oriented (A and O) times three. No focal deficits. Labs and Radiology : Reviewed. ASSESSMENT and PLAN: The patient is a male with a significant past medical history of atrial fibrillation (AFib). He is not on anticoagulation. 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 He presented to the emergency room with complaints of pain in the upper abdomen as well. It is primarily the costophrenic angle area that has been going on for the previous day and a half nonstop, nonradiating associated with mild shortness of breath. He was hypoxic on presentation. He was admitted for evaluation of chest pain and hypoxia probably due to CHF exacerbation. Chest pain ACS ruled out. No pericardial effusion , No aortic dissection Most probably musculoskeletal vs pleuritic vs GI and stomach related. No EKG changes suggestive of pericarditis and no h/o recent respiratory tract infection. continue tylenol. will give sucralfate and increase his PPI s/p GI cocktail. Fecal impaction as seen in CT scan this could be causing abdominal pain and discomfort too. started on aggresive bowel regiman CHF with preserved LV systolic function with mild exacerbation Diastolic function could not be determined as patient was in afib during echo Now clinically volume overloaded on IV lasix, hold torsemide on oxygen , try to wean as tolerated. strict i/o daily weights and 1.5 liter fluid restriction atul. remains with 3+edema.dryweight 186lbs per pt. walks 40-50 ft at home. "I go wherever I want." no stairs. sees his college recruiter 3-4 x/year. some sob on o2. changed to iv lasix. with fluid restriction and diuresis,willneed to monitor for orthostasis. Hypokalemia supplemented due to lasix diuresis Magnesium is normal. Mitral regurgitation with features of fluid overload will give IV Lasix A fib on low dose atenolol Pulmonary interstitial fibrosis predominantly peripheral and Possible restrictive lung disease due to kyphoscoliosis. unknown if he has underlying COPD or not. i think these are at baseline will continue with home meds. Nebs, advair. Will dc steroids and azithromycin. Moderate to severe pulmonary hypertension with corpulmonale. continue lasix. Hypertension continue home meds. H/o CVA both ischemic and hemorrhagic Chronic elevation of right hemidiaphragm Rectal fecal stasis seen in CT abdomen and pelvis will give bowel regimen and enema if required. Colonic diverticulosis. Severe kyphoscoliosis. Skin cancers malignant melanoma of left forearm DVT prophylaxis ordered. disposition: needs diuresis continued for the next 2-3 days. dc plans for Saturday. VS, I&O, 24H, Fishbone Vital Signs/I&O Vital Signs Date Time Temp Pulse Resp B/P (MAP) Pulse Ox O2 Delivery O2 Flow Rate FiO2 12/12/18 09:32 99 106/53 12/12/18 06:00 98.1 15 96 2.0 I&O- Last 24 Hours up to 6 AM 12/12/18 06:00 Intake Total 1190 ml Output Total 2000 ml Balance -810 ml Laboratory Data 24H LABS Laboratory Tests 2 12/11/18 17:58: Anion Gap 5L, Glomerular Filtration Rate > 60.0, Blood Urea Nitrogen 25H, Creatinine 0.80, Sodium Level 141, Potassium Level 3.7, Chloride Level 100, Carbon Dioxide Level 36H, Calcium Level 9.0, Magnesium Level 2.3 12/12/18 05:23: Anion Gap 3L, Glomerular Filtration Rate > 60.0, Blood Urea Nitrogen 26H, Crea tinine 0.77, Sodium Level 141, Potassium Level 3.3L, Chloride Level 99, Carbon Dioxide Level 39H, Calcium Level 8.6L, Magnesium Level 2.1, Nucleated Red Blood Cells % (auto) 0.0 CBC/BMP Laboratory Tests 12/11/18 17:58 Calcium Level 9.0 12/12/18 05:23 Calcium Level 8.6 L, Red Blood Count 3.44 L, Mean Corpuscular Volume 93.9, Mean Corpuscular Hemoglobin 30.2, Mean Corpuscular Hemoglobin Concent 32.2, Red Cell Distribution Width 16.5 H Microbiology Microbiology 12/05/18 Blood Culture - Final, Complete NO GROWTH AFTER 5 DAYS 12/05/18 Blood Culture - Final, Complete NO GROWTH AFTER 5 DAYS 12/05/18 MRSA Screen - Final, Complete DAINA GROSSMAN MD Dec 12, 2018 11:58
[2018-12-12] MEDS ORDERED: metOLazone 5 MG TAB PO ONE (12:30)
[2018-12-12 14:05] VITALS: BP 104/56
[2018-12-12 18:27] LABS: BLOOD UREA NITROGEN 25 MG/DL (7-18); CALCIUM LEVEL 9.4 MG/DL (8.8-10.2); CARBON DIOXIDE LEVEL 38 MEQ/L (21-32); CHLORIDE LEVEL 99 MEQ/L (98-107); CREATININE FOR GFR 0.89 MG/DL (0.70-1.30); GLOMERULAR FILTRATION RATE > 60.0 (>35); GLUCOSE, FASTING 116 MG/DL (70-100); MAGNESIUM LEVEL 2.2 MG/DL (1.8-2.4); POTASSIUM SERUM 3.4 MEQ/L (3.5-5.1); SODIUM LEVEL 141 MEQ/L (136-145)
[2018-12-12] MEDS: ADVAIR HFA 115/21MCG INHALER INH PRN (19:46)
[2018-12-12] MEDS: SENNA 8.6 MG TAB (SENOKOT) PO SCH (21:15)
[2018-12-12] MEDS: SIMVASTATIN 20 MG TAB PO SCH (21:16)
[2018-12-12 22:00] VITALS: BP 103/58
[2018-12-13] MEDS: FUROSEMIDE 20 MG/2 ML VIAL (J1940) IV SCH ×2 (02:27→08:18)
[2018-12-13 02:30] VITALS: BP 108/56
[2018-12-13] MEDS: IPRATROPIUM 0.5MG/ALBUTEROL 2.5MG INH SOL UD 3ML (DUONEB)(J7620) NEB SCH ×6 (03:36→23:55)
[2018-12-13 06:00] VITALS: BP 116/56
[2018-12-13 06:23] LABS: BLOOD UREA NITROGEN 25 MG/DL (7-18); CALCIUM LEVEL 8.9 MG/DL (8.8-10.2); CARBON DIOXIDE LEVEL 39 MEQ/L (21-32); CHLORIDE LEVEL 100 MEQ/L (98-107); CREATININE FOR GFR 0.82 MG/DL (0.70-1.30); GLOMERULAR FILTRATION RATE > 60.0 (>35); GLUCOSE, FASTING 91 MG/DL (70-100); POTASSIUM SERUM 3.1 MEQ/L (3.5-5.1); SODIUM LEVEL 144 MEQ/L (136-145)
[2018-12-13] MEDS: HEPARIN SOD (PORCINE) 5000 UNITS/ML VIAL SC SCH ×3 (06:37→21:34)
[2018-12-13] MEDS: ADVAIR HFA 115/21MCG INHALER INH PRN ×2 (07:21→18:06)
[2018-12-13] MEDS: MOM 30ML SUSPENSION UDC PO SCH (08:19)
[2018-12-13] MEDS: BISACODYL 5 MG TAB PO SCH (08:19)
[2018-12-13] MEDS: BISACODYL 10 MG SUPP PR SCH (08:19)
[2018-12-13] MEDS: MULTIVITAMINS/MINERALS THERAP 1 TAB PO SCH (08:20)
[2018-12-13] MEDS: OMEPRAZOLE 20 MG CAP PO SCH (08:20)
[2018-12-13] MEDS: VITAMIN D 1,000 INTERNATIONAL UNITS TABLET PO SCH (08:20)
[2018-12-13] MEDS: ESCITALOPRAM OXALATE 10 MG TAB (LEXAPRO) PO SCH (08:21)
[2018-12-13] MEDS: POTASSIUM CHLORIDE 10 MEQ SR TABLET PO SCH (08:21)
[2018-12-13] MEDS: ACETAMINOPHEN 500 MG TAB PO SCH ×2 (08:21→21:34)
[2018-12-13] MEDS: SUCRALFATE 1 GM TAB PO SCH ×4 (08:21→21:34)
[2018-12-13] MEDS: ASPIRIN 81 MG ENTERIC TAB PO SCH (08:21)
[2018-12-13] MEDS: CYANOCOBALAMIN 500 MCG TAB PO SCH (08:21)
[2018-12-13] MEDS: ATENOLOL 12.5MG PER 1/2 TABLET PO SCH (08:29)
[2018-12-13] MEDS ORDERED: POTASSIUM CHLORIDE 10 MEQ SR TABLET PO ONE (08:30)
[2018-12-13] MEDS ORDERED: metOLazone 5 MG TAB PO ONE (08:30)
--- NOTE | 2018-12-13 13:09 | IPNPDOC ---
Date Seen The patient was seen on 12/13/18. Progress Note SUBJECTIVE: Pt anxious to go home, and does not want to wait until saturday I/O and daily weights reviewed. pt says he has a walker at home, and can manage with his . He wants to be discharged today or Saturday. No new issues overnight. No new c/o this morning. Pt tolerating his iv lasix q6hrs w/o dizziness, lightheadedness. net negative balance overnight an decreased weight. no sob, cp, pressure , tightness. improved in his LE edema. no cough. passed HSE. c/o thirst. pt's urine is white, denies any concentrated yellow or orange urine. PHYSICAL EXAMINATION: Vitals: pls see below General: He is well nourished, in no apparent distress. Head is normocephalic, atraumatic. Eyes: Extraocular movements are intact. Pupils equal, round, reactive to light. Neck is supple. No jugular venous pressure (JVP). Lungs: Diffuse rhonchi, minimal wheezing. Cardiovascular: Irregularly irregular rhythm. Normal S1, S2. Abdomen: Soft, nontender, nondistended, positive bowel sounds. Extremities: decreased pitting edema. No calf tenderness. Skin: Intact. No rashes, lesions or breakdown. Neurological: Alert and oriented (A and O) times three. No focal deficits. Labs and Radiology : Reviewed. ASSESSMENT and PLAN: The patient is a male with a significant past medical history of atrial fibrillation (AFib). He is not on anticoagulation. 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 He presented to the emergency room with complaints of pain in the upper abdomen as well. It is primarily the costophrenic angle area that has been going on for the previous day and a half nonstop, nonradiating associated with mild shortness of breath. He was hypoxic on presentation. He was admitted for evaluation of chest pain and hypoxia probably due to CHF exacerbation. Chest pain ACS ruled out. No pericardial effusion , No aortic dissection Most probably musculoskeletal vs pleuritic vs GI and stomach related. No EKG changes suggestive of pericarditis and no h/o recent respiratory tract infection. continue tylenol. will give sucralfate and increase his PPI s/p GI cocktail. Fecal impaction as seen in CT scan this could be causing abdominal pain and discomfort too. started on aggresive bowel regiman CHF with preserved LV systolic function with mild exacerbation Diastolic function could not be determined as patient was in afib during echo s/p IV lasix, restarted torsemide on oxygen , try to wean as tolerated. strict i/o daily weights and 1.5 liter fluid restriction s/p zaroxylyn. dryweight 186lbs per pt. walks 40-50 ft at home. "I go wherever I want." no stairs. sees his bulb sorter 3-4 x/year. Hypokalemia supplemented due to lasix diuresis Magnesium is normal. Mitral regurgitation, chronic A fib resumed home dose atenolol not on anticoagulation due to h/o hemorrhagic cva Pulmonary interstitial fibrosis predominantly peripheral and Possible restrictive lung disease due to kyphoscoliosis. unknown if he has underlying COPD or not. i think these are at baseline will continue with home meds. Nebs, advair. Will dc steroids and azithromycin. Moderate to severe pulmonary hypertension with corpulmonale. continue lasix. Hypertension continue home meds. H/o CVA both ischemic and hemorrhagic Chronic elevation of right hemidiaphragm Rectal fecal stasis seen in CT abdomen and pelvis will give bowel regimen and enema if required. Colonic diverticulosis. Severe kyphoscoliosis. Skin cancers malignant melanoma of left forearm DVT prophylaxis ordered disposition: dc home saturday with home care. VS, I&O, 24H, Fishbone Vital Signs/I&O Vital Signs Date Time Temp Pulse Resp B/P (MAP) Pulse Ox O2 Delivery O2 Flow Rate FiO2 12/13/18 08:29 112 109/61 12/13/18 06:00 98.3 22 90 1.0 I&O- Last 24 Hours up to 6 AM 12/13/18 06:00 Intake Total 520 ml Output Total 300 ml Balance 220 ml Laboratory Data 24H LABS Laboratory Tests 2 12/12/18 17:45: Anion Gap 4L, Glomerular Filtration Rate > 60.0, Blood Urea Nitrogen 25H, Creati nine 0.89, Sodium Level 141, Potassium Level 3.4L, Chloride Level 99, Carbon Dioxide Level 38H, Calcium Level 9.4, Magnesium Level 2.2 12/13/18 05:21: Anion Gap 5L, Glomerular Filtration Rate > 60.0, Blood Urea Nitrogen 25H, Creatinine 0.82, Sodium Level 144, Potassium Level 3.1L, Chloride Level 100, Carbon Dioxide Level 39H, Calcium Level 8.9, Magnesium Level 2.0 CBC/BMP Laboratory Tests 12/12/18 17:45 Calcium Level 9.4 12/13/18 05:21 Calcium Level 8.9 Microbiology Microbiology 12/05/18 Blood Culture - Final, Complete NO GROWTH AFTER 5 DAYS 12/05/18 Blood Culture - Final, Complete NO GROWTH AFTER 5 DAYS 12/05/18 MRSA Screen - Final, Complete DAINA GROSSMAN MD Dec 13, 2018 13:09
[2018-12-13 14:00] VITALS: BP 111/65
[2018-12-13 18:33] LABS: BLOOD UREA NITROGEN 25 MG/DL (7-18); CALCIUM LEVEL 8.8 MG/DL (8.8-10.2); CARBON DIOXIDE LEVEL 39 MEQ/L (21-32); CHLORIDE LEVEL 100 MEQ/L (98-107); CREATININE FOR GFR 0.78 MG/DL (0.70-1.30); GLOMERULAR FILTRATION RATE > 60.0 (>35); GLUCOSE, FASTING 105 MG/DL (70-100); MAGNESIUM LEVEL 2.1 MG/DL (1.8-2.4); POTASSIUM SERUM 3.2 MEQ/L (3.5-5.1); SODIUM LEVEL 144 MEQ/L (136-145)
[2018-12-13] MEDS: SIMVASTATIN 20 MG TAB PO SCH (21:34)
[2018-12-13] MEDS: SENNA 8.6 MG TAB (SENOKOT) PO SCH (21:34)
[2018-12-13 22:00] VITALS: BP 110/56
[2018-12-14] MEDS: IPRATROPIUM 0.5MG/ALBUTEROL 2.5MG INH SOL UD 3ML (DUONEB)(J7620) NEB SCH ×2 (04:47→07:02)
[2018-12-14 06:00] VITALS: BP 123/63
[2018-12-14 06:25] LABS: BLOOD UREA NITROGEN 25 MG/DL (7-18); CARBON DIOXIDE LEVEL 35 MEQ/L (21-32); CHLORIDE LEVEL 100 MEQ/L (98-107); CREATININE FOR GFR 0.75 MG/DL (0.70-1.30); GLOMERULAR FILTRATION RATE > 60.0 (>35); GLUCOSE, FASTING 91 MG/DL (70-100); MAGNESIUM LEVEL 1.9 MG/DL (1.8-2.4); POTASSIUM SERUM 3.2 MEQ/L (3.5-5.1); SODIUM LEVEL 144 MEQ/L (136-145)
[2018-12-14] MEDS: HEPARIN SOD (PORCINE) 5000 UNITS/ML VIAL SC SCH (06:32)
[2018-12-14] MEDS: ADVAIR HFA 115/21MCG INHALER INH PRN (07:02)
[2018-12-14] MEDS ORDERED: ATENOLOL 25 MG TAB PO SCH (09:00)
[2018-12-14] MEDS: BISACODYL 10 MG SUPP PR SCH (09:00)
[2018-12-14] MEDS ORDERED: TORSEMIDE 20 MG TAB PO SCH (09:00)
[2018-12-14] MEDS: BISACODYL 5 MG TAB PO SCH (09:00)
[2018-12-14] MEDS: MOM 30ML SUSPENSION UDC PO SCH (09:00)
[2018-12-14] MEDS: ASPIRIN 81 MG ENTERIC TAB PO SCH (09:15)
[2018-12-14] MEDS: MULTIVITAMINS/MINERALS THERAP 1 TAB PO SCH (09:15)
[2018-12-14] MEDS: OMEPRAZOLE 20 MG CAP PO SCH (09:15)
[2018-12-14] MEDS: CYANOCOBALAMIN 500 MCG TAB PO SCH (09:15)
[2018-12-14] MEDS: SUCRALFATE 1 GM TAB PO SCH (09:15)
[2018-12-14] MEDS: VITAMIN D 1,000 INTERNATIONAL UNITS TABLET PO SCH (09:15)
[2018-12-14 09:16] VITALS: BP 112/60
[2018-12-14] MEDS: ACETAMINOPHEN 500 MG TAB PO SCH (09:16)
[2018-12-14] MEDS: ESCITALOPRAM OXALATE 10 MG TAB (LEXAPRO) PO SCH (09:16)
--- NOTE | 2018-12-14 15:43 | DS.PDOC ---
Discharge Summary General Date of Admission Dec 05, 2018 at 19:30 Date of Discharge december 14, 2018 Discharge Summary DISCHARGE DIAGNOSES: Chest pain ACS ruled out. Fecal impaction as seen in CT scan CHF with preserved LV systolic function with mild exacerbation Hypokalemia Mitral regurgitation, chronic A fib Pulmonary interstitial fibrosis predominantly peripheral and Possible restrictive lung disease due to kyphoscoliosis. Moderate to severe pulmonary hypertension with corpulmonale. Hypertension H/o CVA both ischemic and hemorrhagic Chronic elevation of right hemidiaphragm Rectal fecal stasis Colonic diverticulosis. Severe kyphoscoliosis. malignant melanoma of left forearm DISCHARGE MEDICATIONS:PLS SEE BELOW DISCHARGE INSTRUCTIONS: DASH DIET, WEIGH DAILY, IF >2LB WT GAIN, CALL YOUR BEAMSTER, BEAMSTER FU APPT WITHIN 5 DAYS, PCP WITHIN 1 WK FLUID RESTRICTION 2LITERS DAILY. HISTORY OF PRESENTING ILLNESS: The patient is a male with a significant past medical history of atrial fi brillation (AFib). He is not on anticoagulation. 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 He presented to the emergency room with complaints of pain in the upper abdomen as well. It is primarily the costophrenic angle area that has been going on for the previous day and a half nonstop, nonradiating associated with mild shortness of breath. He was hypoxic on presentation. He was admitted for evaluation of chest pain and hypoxia probably due to CHF exacerbation. HOSPITAL COURSE: Chest pain ACS ruled out. No pericardial effusion , No aortic dissection Most probably musculoskeletal vs pleuritic vs GI and stomach related. No EKG changes suggestive of pericarditis and no h/o recent respiratory tract infection. continue tylenol. will give sucralfate and increase his PPI s/p GI cocktail. Fecal impaction as seen in CT scan this could be causing abdominal pain and discomfort too. started on aggresive bowel regiman CHF with preserved LV systolic function with mild exacerbation Diastolic function could not be determined as patient was in afib during echo s/p IV lasix, restarted torsemide on oxygen , try to wean as tolerated. strict i/o daily weights and 1.5 liter fluid restriction s/p zaroxylyn. dryweight 186lbs per pt. walks 40-50 ft at home. "I go wherever I want." no stairs. sees his appointment scheduler 3-4 x/year. Hypokalemia supplemented due to lasix diuresis Magnesium is normal. Mitral regurgitation, chronic A fib resumed home dose atenolol not on anticoagulation due to h/o hemorrhagic cva Pulmonary interstitial fibrosis predominantly peripheral and Possible restrictive lung disease due to kyphoscoliosis. unknown if he has underlying COPD or not. i think these are at baseline will continue with home meds. Nebs, advair. Will dc steroids and azithromycin. Moderate to severe pulmonary hypertension with corpulmonale. continue lasix. Hypertension continue home meds. H/o CVA both ischemic and hemorrhagic Chronic elevation of right hemidiaphragm Rectal fecal stasis seen in CT abdomen and pelvis will give bowel regimen and enema if required. Colonic diverticulosis. Severe kyphoscoliosis. Skin cancers malignant melanoma of left forearm DVT prophylaxis ordered DISCHARGE PHYSICAL EXAMINATION: Vitals: pls see below General: He is well nourished, in no apparent distress. Head is normocephalic, atraumatic. Eyes: Extraocular movements are intact. Pupils equal, round, reactive to light. Neck is supple. No jugular venous pressure (JVP). Lungs: Diffuse rhonchi, minimal wheezing. Cardiovascular: Irregularly irregular rhythm. Normal S1, S2. Abdomen: Soft, nontender, nondistended, positive bowel sounds. Extremities: decreased pitting edema. No calf tenderness. Skin: Intact. No rashes, lesions or breakdown. Neurological: Alert and oriented (A and O) times three. No focal deficits. LABS, MICROBIOLOGY, IMAGING STUDIES: PLS SEE BELOW TIME SPENT ON DISCHARGE: 30 MIN Vital Signs/I&Os Vital Signs Date Time Temp Pulse Resp B/P (MAP) Pulse Ox O2 Delivery O2 Flow Rate FiO2 12/14/18 09:16 92 112/60 12/14/18 06:00 98.0 24 94 12/13/18 14:00 1.0 I&O- Last 24 Hours up to 6 AM 12/14/18 06:00 Intake Total 1280 ml Balance 1280 ml Laboratory Data Labs 24H Laboratory Tests 2 12/13/18 17:51: Anion Gap 5L, Glomerular Filtration Rate > 60.0, Blood Urea Nitrogen 25H, Creatinine 0.78, Sodium Level 144, Potassium Level 3.2L, Chloride Level 100, Carbon Dioxide Level 39H, Calcium Level 8.8, Magnesium Level 2.1 12/14/18 05:21: Anion Gap 9, Glomerular Filtration Rate > 60.0, Blood Urea Nitrogen 25H, Creatinine 0.75, Sodium Level 144, Potassium Level 3.2L, Chloride Level 100, Carbon Dioxide Level 35H, Calcium Level 9.0, Magnesium Level 1.9 CBC/BMP Laboratory Tests 12/13/18 17:51 Calcium Level 8.8 12/14/18 05:21 Calcium Level 9.0 Microbiology Microbiology 12/05/18 Blood Culture - Final, Complete NO GROWTH AFTER 5 DAYS 12/05/18 Blood Culture - Final, Complete NO GROWTH AFTER 5 DAYS 12/05/18 MRSA Screen - Final, Complete Discharge Medications Scheduled (Restasis) 0.05 % Emu, 1 DROP OU BID, (Reported) Aspirin (Aspirin 81) 81 Mg Tab, 81 MG PO DAILY, (Reported) Atenolol (Atenolol) 25 Mg Tab, 25 MG PO DAILY, (Reported) Bimatoprost (Lumigan) 50 Drop/2.5 Ml Veronica, 1 DROP OU QHS, (Reported) Bisacodyl (Bisacodyl EC) 5 Mg Tab, 10 MG PO DAILY, (Reported) Cholecalciferol (Vitamin D) 1,000 Unit Tab, 1,000 UNIT PO DAILY, (Reported) Cyanocobalamin (Vitamin B-12) 1,000 Mcg Tab, 1,000 MCG PO DAILY, (Reported) Escitalopram Oxalate (Lexapro) 10 Mg Tab, 10 MG PO DAILY, (Reported) Multivitamins *[facility] STOCKED* (Thera M Plus *[facility] STOCK[facility]*) 1 Tab Tab, 1 TAB PO DAILY, (Reported) Omeprazole (Omeprazole) 20 Mg Cap, 20 MG PO DAILY, (Reported) Potassium Chloride (Potassium Chloride ER) 20 Meq Tab, 40 MEQ PO DAILY, (Reported) Senna (Senna Lax) 8.6 Mg Tab, 2 TAB PO QHS, (Reported) Simvastatin (Simvastatin) 20 Mg Tab, 20 MG PO QHS, (Reported) Torsemide (Torsemide) 20 Mg Tab, 20 MG PO DAILY, (Reported) Scheduled PRN Albuterol Sulfate (Ventolin Hfa) 108 Mcg/Act Aer, 2 PUFF INH Q4H PRN for SHORTNESS OF BREATH, (Reported) Salmeterol/Fluticasone (Advair Diskus 250-50 Mcg/Dose) 14 Puff/Inhaler Aerp, 1 PUFF INH BID PRN for SHORTNESS OF BREATH, (Reported) PATIENT STATES HE IS USING PRN Allergies Coded Allergies: No Known Allergies (Verified , 05/11/04) DAINA GROSSMAN MD Dec 14, 2018 15:43
== END 2018-12-14 09:29 | disposition home health service (06) | DRG 388 ==
LOC: M ED 16:54 → EDBD 16:54 → M ED INP 19:30 → M MSPAV 21:32
PROVIDERS: ADMIT Internal Medicine; ATTEND General Practice
DX: K56.41 Fecal impaction (principal); I50.33 Acute on chronic diastolic (congestive) heart failure; R07.89 Other chest pain; I11.0 Hypertensive heart disease with heart failure; K59.8 Other specified functional intestinal disorders; I27.20 Pulmonary hypertension, unspecified; I27.81 Cor pulmonale (chronic); M41.9 Scoliosis, unspecified; I48.91 Unspecified atrial fibrillation; I34.0 Nonrheumatic mitral (valve) insufficiency; E87.6 Hypokalemia; K57.30 Diverticulosis of large intestine without perforation or abscess without bleeding; J84.10 Pulmonary fibrosis, unspecified; Z86.73 Personal history of transient ischemic attack (TIA), and cerebral infarction without residual deficits; E78.5 Hyperlipidemia, unspecified; J44.9 Chronic obstructive pulmonary disease, unspecified; Z79.899 Other long term (current) drug therapy; Z79.82 Long term (current) use of aspirin; Z87.891 Personal history of nicotine dependence; H40.9 Unspecified glaucoma

== ENCOUNTER 2018-12-16 15:05 | Inpatient (IN) | payer MEDICARE, OTHER ==
[~2018-12-16] VITALS: Ht 177.8 cm; Wt 77.9 kg
[2018-12-16] MEDS: IPRATROPIUM 0.5MG/ALBUTEROL 2.5MG INH SOL UD 3ML (DUONEB)(J7620) NEB PRN ×2 (15:35→15:59)
--- NOTE | 2018-12-16 15:54 | REP ---
Portable chest, 03:32 p.m., single AP semi upright view: Comparisons are the chest CT dated 10/24/2018 and portable chest of 2018. There is chronic elevation of the right hemidiaphragm with compression atelectasis of the right lung above the elevated diaphragm, unchanged. There is colonic interposition beneath the right hemidiaphragm, unchanged. There is chronic interstitial coarsening in the left lung. There are no focal left lung infiltrates or effusions. There is marked global cardiomegaly, unchanged. Impression: There are chronic changes as described. No new or acute cardiopulmonary findings are identified. Electronically Signed by Ezekiel Wharton MD 12/16/2018 03:45 P
[2018-12-16 16:02] LABS: ABG BASE EXCESS 10.9 (-2.0-2.0); ABG HCO3 37.2 MEQ/L (22.0-26.0); ABG O2 SATURATION 97.4 % (95.0-99.0); ABG PARTIAL PRESSURE CO2 57.9 mmHg (35.0-45.0); ABG PARTIAL PRESSURE O2 101.8 mmHg (75.0-100.0); ABG STANDARD HCO3 34.6 MEQ/L (22.0-26.0); ABG pH (ARTERIAL) 7.426 UNITS (7.350-7.450)
--- NOTE | 2018-12-16 16:17 | REP ---
CT of the chest without IV contrast: Comparison is 10/24/2018. There is a focal infiltrate posteriorly in the right upper lobe as a change from the prior study. There are no left lung infiltrates. There are no pleural effusions. There is chronic elevation of the right hemidiaphragm, unchanged. There is chronic compression atelectasis of the right lung above the elevated right hemidiaphragm, unchanged. There is colonic interposition beneath the elevated right hemidiaphragm, unchanged. There is global cardiomegaly, unchanged. The pulmonary trunk is dilated measuring up to 3.7 centimeters, compatible with pulmonary hypertension. There are pericardial calcifications, unchanged, likely sequela of previous pericarditis. The ascending aorta is dilated measuring up to 4.1 cm in diameter. Next line in the abdomen the hepatic margin has a nodular appearance compatible with cirrhosis. This is unchanged. Impression: New infiltrate posteriorly in the right upper lobe. There are other chronic findings as described. Electronically Signed by Ezekiel Wharton MD 12/16/2018 04:08 P
[2018-12-16 16:23] LABS: BASO % 0.3 % (0.0-1.0); EOS % 0.2 % (0.0-3.0); HEMATOCRIT 34.6 % (42.0-52.0); HEMOGLOBIN 11.1 g/dl (13.5-17.5); LYMPH # 0.8 10^3/uL (1.5-4.5); MEAN CORPUSCULAR HEMOGLOBIN 30.4 pg (27.0-33.0); MEAN CORPUSCULAR HGB CONC 32.1 g/dl (32.0-36.5); MEAN CORPUSCULAR VOLUME 94.8 fl (80.0-96.0); MONO % 10.1 % (0.0-5.0); NEUTROPHILS # 8.1 10^3/uL (1.8-7.7); NEUTROPHILS % 80.9 % (36.0-66.0); PLATELET COUNT, AUTOMATED 194 10^3/uL (150-450); RED BLOOD COUNT 3.65 10^6/uL (4.30-6.10); WHITE BLOOD COUNT 10.1 10^3/uL (4.0-10.0)
[2018-12-16] MEDS ORDERED: GNP8.6TA PO (16:47)
[2018-12-16 17:02] LABS: BLOOD UREA NITROGEN 35 MG/DL (7-18); CALCIUM LEVEL 9.4 MG/DL (8.8-10.2); CARBON DIOXIDE LEVEL 38 MEQ/L (21-32); CHLORIDE LEVEL 100 MEQ/L (98-107); CPK CREATINE PHOSPHOKINASE 61 U/L (39-308); CREATININE FOR GFR 0.97 MG/DL (0.70-1.30); GLOMERULAR FILTRATION RATE > 60.0 (>35); GLUCOSE, FASTING 139 MG/DL (70-100); MB/CK RELATIVE INDEX 4.59 (< OR =4); NT-PRO BNP 1199 PG/ML (<450); POTASSIUM SERUM 2.7 MEQ/L (3.5-5.1); SODIUM LEVEL 144 MEQ/L (136-145); TROPONIN I 0.05 NG/ML (< 0.10)
[2018-12-16] MEDS ORDERED: PIPERACILLIN/TAZOBACTAM SOD 3.375 GM in D5W MINI-BAG PLUS 50 ML IV ONE (17:15)
[2018-12-16] MEDS ORDERED: POTASSIUM CHLORIDE 10 MEQ SR TABLET PO ONE (17:30)
[2018-12-16 20:30] VITALS: BP 110/57
[2018-12-16] MEDS: SENNA 8.6 MG TAB (SENOKOT) PO SCH (21:17)
[2018-12-16] MEDS: SIMVASTATIN 20 MG TAB PO SCH (21:17)
[2018-12-16] MEDS: POTASSIUM CHLORIDE 10 MEQ SR TABLET PO SCH (21:18)
--- NOTE | 2018-12-16 21:26 | HPE ---
DATE OF ADMISSION: 12/16/2018 PRIMARY CARE PROVIDER: Abdiaziz Mann RIBBON WINDER: Dr. Robinson Villa ATTENDING PHYSICIAN: Will be hospitalist group. CHIEF COMPLAINT: Shortness of breath/acute on chronic cor pulmonale. HISTORY: Kev Mathis is an 83-year-old with a history of pulmonary fibrosis and probable cor pulmonale, who was admitted with increasing edema of his legs, shortness of breath, and a cough productive of some mild sputum. There is a diagnosis of "COPD," but I do not think that there is any spirometry to support that diagnosis. I think he more likely has some restrictive lung disease from some significant pulmonary fibrosis. He has echocardiographic evidence of right-sided heart failure with an echocardiogram 10/25/2018 that showed left atrial dilatation, 56 mm, severe right atrial dilatation, moderate elevation of right-sided systolic pressures at 55 mm. Normal left ventricular ejection fraction. Mild mitral regurgitation. He was just in the hospital 12/05/2018-12/14/2018 on the hospitalist service. He had some atypical chest pain. Myocardial infarction (AR) was ruled out. He was felt to have some congestive heart failure (CHF), probably related to right-sided failure. He had some gastrointestinal (GI) problems, including fecal impaction that was worked up with a CT scan. PAST MEDICAL HISTORY: Pulmonary fibrosis seen on CT scan. He has kyphoscoliosis with restriction related to that. History of atrial fibrillation. He is not on anticoagulant therapy due to a history of hemorrhagic as well as ischemic stroke. 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 Other past history shows: Hyperlipidemia. Vitamin B12 deficiency. Vitamin D deficiency. ALLERGIES: None known. SOCIAL HISTORY: He quit smoking years ago. No alcohol use. FAMILY HISTORY: Noncontributory. MEDICATIONS: - albuterol inhaler as needed - Advair 250/50 one inhalation twice a day - torsemide 20 mg daily - multivitamin - various eye drops - aspirin 81 mg daily - atenolol 25 mg daily - vitamin D 1000 units daily - B12 1000 mcg by mouth daily - Lexapro 10 mg daily - omeprazole 20 mg daily - potassium chloride 20 mEq daily - Senna daily - simvastatin 20 mg at bedtime REVIEW OF SYSTEMS: No unexplained weight loss. No exertional chest pain. No rectal bleeding, urinary bleeding, epistaxis. PHYSICAL EXAMINATION: Blood pressure 104/57, pulse of 88, respiratory rate 19, 93% oxygen (O2) saturation, temperature 97.9 degrees. General Appearance: Resting in bed, tachypneic, able to speak in full sentences but frequent loose cough. Pupils equal, round, reactive to light. Tympanic membranes (TMs) normal. Pharynx benign. Neck: No masses. Lungs: Decreased breath sounds, fibrotic rales bilaterally. Expiratory wheezes both bases. Heart: Regular rate and rhythm, right around 80. Abdomen: Soft, nontender, no masses. He has 1 to 2+ peripheral edema. This has increased over the last week. LABORATORY: White count 10.1, hemoglobin 11.1, platelets 194. Sodium 144, potassium 2.7, BUN 35, creatinine 0.9, glucose 139, BNP 1199. AB.42/57/101. IMPRESSION: 1. Acute on chronic cor pulmonale. He will be admitted to progressive care unit (PCU) bed. He has DO NOT RESUSCITATE (DNR) status which has been renewed. His Medical Orders for Life-Sustaining Treatment (MOLST) form from 2017 was copied from records and placed in the chart, his DNR and DO NOT INTUBATE. IV Lasix. Maintain a 1200 mL per day net diuresis has been ordered. Nebulized bronchodilator has been ordered. Supplemental oxygen to keep O2 saturation 88-92%. 2. Question exacerbation of chronic obstructive pulmonary disease (COPD). Again, I am not sure that the diagnosis of COPD is accurate. He is wheezing and has no sputum production. He was recently hospitalized for a week. Will cover with antibiotic therapy with Zosyn 3.375 mg IV every 8 hours, empiric steroid therapy, Solu-Medrol 40 mg IV daily times 5 days. Continue nebulized bronchodilator. 3. Hyperlipidemia. Continue simvastatin 20 mg daily. 4. Hypertension. He is on atenolol. May benefit from a more selective beta santo, but it is controlling his heart rate, and I am not changing it at this point. 5. Atrial fibrillation. His rate is controlled. He is not anticoagulated for reasons summarized above. 6. History of depression. Continue Lexapro 10 mg daily. Hospitalist service will be assuming his care in the morning.
[2018-12-16] MEDS: IPRATROPIUM 0.5MG/ALBUTEROL 2.5MG INH SOL UD 3ML (DUONEB)(J7620) NEB SCH (23:03)
[2018-12-16 23:59] VITALS: BP 98/55
[2018-12-17] VITALS (17 sets, daily range): BP systolic 102–119; BP diastolic 60–69; O2SAT 91–99
[2018-12-17] MEDS: FUROSEMIDE 40 MG/4 ML VIAL (J1940) IV SCH ×5 (00:05→23:42)
[2018-12-17] MEDS: IPRATROPIUM 0.5MG/ALBUTEROL 2.5MG INH SOL UD 3ML (DUONEB)(J7620) NEB SCH ×4 (02:00→20:03)
[2018-12-17 05:35] LABS: HEMATOCRIT 34.6 % (42.0-52.0); HEMOGLOBIN 10.7 g/dl (13.5-17.5); MEAN CORPUSCULAR HEMOGLOBIN 29.4 pg (27.0-33.0); MEAN CORPUSCULAR HGB CONC 30.9 g/dl (32.0-36.5); MEAN CORPUSCULAR VOLUME 95.1 fl (80.0-96.0); PLATELET COUNT, AUTOMATED 181 10^3/uL (150-450); RED BLOOD COUNT 3.64 10^6/uL (4.30-6.10); WHITE BLOOD COUNT 7.8 10^3/uL (4.0-10.0)
[2018-12-17 06:02] LABS: BLOOD UREA NITROGEN 31 MG/DL (7-18); CALCIUM LEVEL 8.8 MG/DL (8.8-10.2); CARBON DIOXIDE LEVEL 38 MEQ/L (21-32); CHLORIDE LEVEL 103 MEQ/L (98-107); CREATININE FOR GFR 0.87 MG/DL (0.70-1.30); GLOMERULAR FILTRATION RATE > 60.0 (>35); GLUCOSE, FASTING 91 MG/DL (70-100); POTASSIUM SERUM 3.4 MEQ/L (3.5-5.1); SODIUM LEVEL 146 MEQ/L (136-145)
--- NOTE | 2018-12-17 08:22 | ECGEPIP ---
Stationary ECG Study [facility] - ED Test Date: 2018-12-16 Pat Name: FERN CROWDER Department: Room: - Gender: M Java Lead Developer: CT : 1935 Requested By: New Gonzalez Order Number: [id number] Reading MD: Noelle Zarate Measurements Intervals [place] Rate: 86 P: CO: 0 QRS: 0 QRSD: 108 T: 158 QT: 438 QTc: 524 Interpretive Statements ATRIAL FIBRILLATION ST DEVIATION AND MODERATE T-WAVE ABNORMALITY, CONSIDER ANTEROLATERAL ISCHEMIA, SEEN 12/06/18 Electronically Signed On 12-17-2018 8:22:27 EDT by Noelle Zraate
[2018-12-17] MEDS: methylPREDNISolone INJ 40 MG/1 ML VIAL (J2920) IV SCH (10:01)
[2018-12-17] MEDS: POTASSIUM CHLORIDE 10 MEQ SR TABLET PO SCH ×4 (10:02→20:27)
[2018-12-17] MEDS: CYANOCOBALAMIN 500 MCG TAB PO SCH (10:03)
[2018-12-17] MEDS: VITAMIN D 1,000 INTERNATIONAL UNITS TABLET PO SCH (10:03)
[2018-12-17] MEDS: ESCITALOPRAM OXALATE 10 MG TAB (LEXAPRO) PO SCH (10:03)
[2018-12-17] MEDS: OMEPRAZOLE 20 MG CAP PO SCH (10:03)
[2018-12-17] MEDS: ASPIRIN 81 MG ENTERIC TAB PO SCH (10:03)
[2018-12-17] MEDS: BISACODYL 5 MG TAB PO SCH (10:04)
[2018-12-17] MEDS: ATENOLOL 25 MG TAB PO SCH (10:05)
--- NOTE | 2018-12-17 16:13 | IPNPDOC ---
Subjective Date Seen The patient was seen on 12/17/18. Subjective Chief Complaint/HPI Subjective: Patient is an 83-year-old male with history of pulmonary fibrosis, Afib not on AC, CVA and probable cor pulmonale presented with lower extremity swelling and shortness of breath admitted for acute on chronic cor pulmonale for diuresis. Patient is DNR. Interval history: Patient reported feeling slightly better today but still SOB with difficulty with mobility. Remain afebrile overnight, no acute events reported. Assessment /Plan Assessment ASSESSMENT AND PLAN: 1. Acute on chronic Cor Pulmonale - ECHO with preserved EF and likely diastolic dysfunction. - c/w aggressive diuresis. - Monitor I/O. Daily weights. - Improving but SOB persistent. 2. COPD with ?exacerbation - Wheezing but no sputum production. - hx recent hospitalization, started on Zosyn 3.375 mg IV q6. - taper steroids. - c/w nebs. 3. HLD - c/w home medication. 4. HTN - c/w Atenolol. 5. Afib - Rate controlled. - Not on AC likely 2/2 hx CVA ischemic and hemorrhagic. High risk of bleed. Patient is high risk due to heart failure exacerbation with advanced age Estimated length of stay 4 days with expected disposition to home. Plan/VTE VTE Prophylaxis Ordered?: Yes VS, I&O, 24H, Fishbone Vital Signs/I&O Vital Signs Date Time Temp Pulse Resp B/P (MAP) Pulse Ox O2 Delivery O2 Flow Rate FiO2 12/17/18 12:00 3.0 12/17/18 12:00 98.5 90 20 110/65 (80) 96 12/16/18 19:53 Room Air I&O- Last 24 Hours up to 6 AM 12/17/18 06:00 Intake Total 50 ml Output Total 250 ml Balance -200 ml Laboratory Data 24H LABS Laboratory Tests 2 12/16/18 16:10: Immature Granulocyte % (Auto) 0.5, White Blood Count 10.1H, Red Blood Count 3.65L, Hemoglobin 11.1L, Hematocrit 34.6L, Mean Corpuscular Volume 94.8, Mean Corpuscular Hemoglobin 30.4, Mean Corpuscular Hemoglobin Concent 32.1, Red Cell Distribution Width 16.9H, Platelet Count 194, Neutrophils (%) (Auto) 80.9H, Lymphocytes (%) (Auto) 8.0L, Monocytes (%) (Auto) 10.1H, Eosinophils (%) (Auto) 0.2, Basophils (%) (Auto) 0.3, Neutrophils # (Auto) 8.1H, Lymphocytes # (Auto) 0.8L, Monocytes # (Auto) 1.0H, Eosinophils # (Auto) 0.0, Basophils # (Auto) 0.0, Nucleated Red Blood Cells % (auto) 0.0, Anion Gap 6L, Glomerular Filtration Rate > 60.0, Lactic Acid Level 2.5*H, Blood Urea Nitrogen 35H, Creatinine 0.97, Sodium Level 144, Potassium Level 2.7*L, Chloride Level 100, Carbon Dioxide Level 38H, Calcium Level 9.4, Total Creatine Kinase 61, Magnesium Level 2.0, Creatine Kinase MB 3.0, Creatine Kinase MB Relative Index 4.59H, Troponin I 0.05, UP-Cad-S-Type Natriuretic Peptide 1199H, Thyroid Stimulating Hormone (TSH) 2.410 12/16/18 20:43: Lactic Acid Followup at 4 Hours 1.9 12/17/18 05:10: Nucleated Red Blood Cells % (auto) 0.0, Anion Gap 5L, Glomerular Filtration Rate > 60.0, Blood Urea Nitrogen 31H, Creatinine 0.87, Sodium Level 146H, Potassium Level 3.4#L, Chloride Level 103, Carbon Dioxide Level 38H, Calcium Level 8.8 CBC/BMP Laboratory Tests 12/16/18 16:10 Red Blood Count 3.65 L, Mean Corpuscular Volume 94.8, Mean Corpuscular Hemoglobin 30.4, Mean Corpuscular Hemoglobin Concent 32.1, Red Cell Distribution Width 16.9 H, Neutrophils (%) (Auto) 80.9 H, Lymphocytes (%) (Auto) 8.0 L, [place] cytes (%) (Auto) 10.1 H, Eosinophils (%) (Auto) 0.2, Basophils (%) (Auto) 0.3, Neutrophils # (Auto) 8.1 H, Lymphocytes # (Auto) 0.8 L, Monocytes # (Auto) 1.0 H, Eosinophils # (Auto) 0.0, Basophils # (Auto) 0.0, Calcium Level 9.4, Total Creatine Kinase 61 12/17/18 05:10 Red Blood Count 3.64 L, Mean Corpuscular Volume 95.1, Mean Corpuscular Hemoglobin 29.4, Mean Corpuscular Hemoglobin Concent 30.9 L, Red Cell Distribution Width 17.2 H, Calcium Level 8.8 Microbiology Microbiology 12/16/18 Blood Culture, Received Pending 12/16/18 Blood Culture, Received Pending 12/16/18 Respiratory Virus Panel (PCR) ([facility]) - Final, Complete Human Metapneumovirus ALEJA GLOVER MD Dec 17, 2018 16:13
[2018-12-17] MEDS: PIPERACILLIN/TAZOBACTAM SOD 3.375 GM in D5W MINI-BAG PLUS 50 ML IV SCH ×2 (17:10→21:12)
--- NOTE | 2018-12-17 17:47 | NUR ---
Pt presents with SOB and wet voice prior to PO intake. Overt signs of aspiration (i.e. coughing, SOB, watering eyes) noted w/ thin liquid via cup and straw. SOB noted with all oral intake but difficult to determine signs of aspiration due to poor baseline respiration. MBS recommended to determine safest and least restrictive diet recommendations. ST recommends nectar thick liquid and level 3 diet until MBS can be completed. Patient provided with education on safe feeding strategies including small bites/sips, one drink at a time, sitting up prior to PO intake. Continue ST for dysphagia management. Addendum: 12/17/18 at 1748 by HARLEY TURNER Amended: Links added.
--- NOTE | 2018-12-17 17:53 | NUR ---
Patient's speech is highly unintelligible. Speech therapy is recommended to target speech articulation to improve intelligibility and functional communication. Addendum: 12/17/18 at 1757 by HARLEY TURNER Amended: Links added.
[2018-12-17] MEDS: SIMVASTATIN 20 MG TAB PO SCH (20:27)
[2018-12-17] MEDS: SENNA 8.6 MG TAB (SENOKOT) PO SCH (20:27)
[2018-12-18] VITALS (13 sets, daily range): BP systolic 93–113; BP diastolic 52–65; O2SAT 84–94
[2018-12-18] MEDS: IPRATROPIUM 0.5MG/ALBUTEROL 2.5MG INH SOL UD 3ML (DUONEB)(J7620) NEB SCH ×4 (01:14→19:57)
[2018-12-18] MEDS: PIPERACILLIN/TAZOBACTAM SOD 3.375 GM in D5W MINI-BAG PLUS 50 ML IV SCH ×4 (03:02→20:56)
[2018-12-18 05:46] LABS: HEMATOCRIT 34.5 % (42.0-52.0); HEMOGLOBIN 10.7 g/dl (13.5-17.5); MEAN CORPUSCULAR HEMOGLOBIN 29.8 pg (27.0-33.0); MEAN CORPUSCULAR VOLUME 96.1 fl (80.0-96.0); PLATELET COUNT, AUTOMATED 175 10^3/uL (150-450); RED BLOOD COUNT 3.59 10^6/uL (4.30-6.10)
[2018-12-18] MEDS: FUROSEMIDE 40 MG/4 ML VIAL (J1940) IV SCH ×4 (06:06→23:45)
[2018-12-18 06:07] LABS: BLOOD UREA NITROGEN 34 MG/DL (7-18); CALCIUM LEVEL 8.9 MG/DL (8.8-10.2); CARBON DIOXIDE LEVEL 39 MEQ/L (21-32); CHLORIDE LEVEL 103 MEQ/L (98-107); CREATININE FOR GFR 0.97 MG/DL (0.70-1.30); GLOMERULAR FILTRATION RATE > 60.0 (>35); GLUCOSE, FASTING 116 MG/DL (70-100); POTASSIUM SERUM 3.4 MEQ/L (3.5-5.1); SODIUM LEVEL 146 MEQ/L (136-145)
[2018-12-18] MEDS: methylPREDNISolone INJ 40 MG/1 ML VIAL (J2920) IV SCH (08:34)
[2018-12-18] MEDS: ASPIRIN 81 MG ENTERIC TAB PO SCH (08:35)
[2018-12-18] MEDS: BISACODYL 5 MG TAB PO SCH (08:35)
[2018-12-18] MEDS: POTASSIUM CHLORIDE 10 MEQ SR TABLET PO SCH ×4 (08:35→20:47)
[2018-12-18] MEDS: CYANOCOBALAMIN 500 MCG TAB PO SCH (08:35)
[2018-12-18] MEDS: VITAMIN D 1,000 INTERNATIONAL UNITS TABLET PO SCH (08:35)
[2018-12-18] MEDS: OMEPRAZOLE 20 MG CAP PO SCH (08:35)
[2018-12-18] MEDS: ESCITALOPRAM OXALATE 10 MG TAB (LEXAPRO) PO SCH (08:35)
[2018-12-18] MEDS: ATENOLOL 25 MG TAB PO SCH (08:36)
[2018-12-18] MEDS ORDERED: BUMETANIDE 1 MG TAB PO ONE (09:00)
[2018-12-18] MEDS ORDERED: VARIBAR NECTAR 40% w/v 240ML SUSP BTL As Ordered ONE (14:49)
[2018-12-18] MEDS ORDERED: VARIBAR PUDDING 40% w/v 230ML TUBE As Ordered ONE (14:49)
[2018-12-18] MEDS ORDERED: E-Z-PAQUE 96% w/w SUSP 176GM BTL As Ordered ONE (14:49)
--- NOTE | 2018-12-18 15:41 | NUR ---
Recommend smooth and creamy pureed solids, honey thick liquids, by spoon only. Please avoid sticky textures. Medications should be crushed in puree assist. Pt should be positioned upright in chair w/ use of chin tuck strategy for all PO intake. Pt will be trained on use of chin tuck, multiple swallows, and effortful swallows to minimize aspiration risk and reduce laryngeal residuals. Dysphagia tx. Pt demonstrated significant silent aspiration of nectar thick liquids. Honey liquids and pureed solids were tolerated without aspiration. However, significant laryngeal residue was present which required multiple effortful swallows to clear. Addendum: 12/18/[address] [facility] Amended: Links added.
--- NOTE | 2018-12-18 16:22 | IPNPDOC ---
Subjective Date Seen The patient was seen on 12/18/18. Subjective Chief Complaint/HPI Patient is an 83-year-old male with history of pulmonary fibrosis, Afib not on AC, CVA and probable cor pulmonale presented with lower extremity swelling and shortness of breath admitted for acute on chronic cor pulmonale for diuresis. Patient is DNR. Interval history: Patient looks slightly more comfortable today but otherwise no significant changes. SOB persistent. Has had swallow evaluation with high risk for aspiration. medications needs to be crushed and thickened fluids. Objective Physical Examination Other physical findings General: No acute distress, very frail. Eyes: Normal sclera, EOMI, TANIA HENT: Atraumatic, neck supple, moist mucous membranes Cardiovascular: Normal rate, normal rhythm. No murmurs appreciated. Pulmonary: mild wheezing but decrease air entry b/l. GI: Soft, nontender, nondistended Skin: Warm and dry Neuro: CN grossly intact. No focal deficits. Strengths equal b/l. Psych: oriented x 3 Assessment /Plan Assessment ASSESSMENT AND PLAN: 1. Acute on chronic Cor Pulmonale - ECHO with preserved EF and likely diastolic dysfunction. - c/w aggressive diuresis. - Monitor I/O. Daily weights. - Improving but SOB persistent. 2. COPD with ?exacerbation - Wheezing but no sputum production. - hx recent hospitalization, started on Zosyn 3.375 mg IV q6. - taper steroids. - c/w nebs. 3. HLD - c/w home medication. 4. HTN - c/w Atenolol. 5. Afib - Rate controlled. - Not on AC likely 2/2 hx CVA ischemic and hemorrhagic. High risk of bleed. 6. Dysphagia - Modified diet at this time due to high risk aspiration. - Repeat study PRN. Patient is high risk due to heart failure exacerbation with advanced age Estimated length of stay 4 days with expected disposition to home. Plan/VTE VTE Prophylaxis Ordered?: Yes VS, I&O, 24H, Fishbone Vital Signs/I&O Vital Signs Date Time Temp Pulse Resp B/P (MAP) Pulse Ox O2 Delivery O2 Flow Rate FiO2 12/18/18 14:00 92 Nasal Cannula 1.0 12/18/18 12:00 97.7 90 18 107/59 (75) I&O- Last 24 Hours up to 6 AM 12/18/18 06:00 Intake Total 410 ml Output Total 1000 ml Balance -590 ml Laboratory Data 24H LABS Laboratory Tests 2 12/18/18 05:01: Nucleated Red Blood Cells % (auto) 0.0, Anion Gap 4L, Glomerular Filtration Rate > 60.0, Blood Urea Nitrogen 34H, Creatinine 0.97, Sodium Level 146H, Potassium Level 3.4L, Chloride Level 103, Carbon Dioxide Level 39H, Calcium Level 8.9 CBC/BMP Laboratory Tests 12/18/18 05:01 Red Blood Count 3.59 L, Mean Corpuscular Volume 96.1 H, Mean Corpuscular Hemoglobin 29.8, Mean Corpuscular Hemoglobin Concent 31.0 L, Red Cell Distribution Width 16.9 H, Calcium Level 8.9 Microbiology Microbiology 12/16/18 Blood Culture - Preliminary, Resulted No growth after 24 hours . All specim... 12/16/18 Blood Culture - Preliminary, Resulted No growth after 24 hours . All specim... 12/16/18 Respiratory Virus Panel (PCR) ([facility]) - Final, Complete Human Metapneumovirus ALEJA GLOVER MD Dec 18, 2018 16:22
[2018-12-18] MEDS ORDERED: PILL CRUSHER/CUTTER 1 EACH XX PRN (17:30)
--- NOTE | 2018-12-18 18:38 | REP ---
COOKIE SWALLOW The procedure was performed under the direct supervision of Dr. Coates. The procedure was performed with Tamica Caraballo from speech pathology present. 5 ml aliquots of nectar, honey and pudding consistency barium was administered. With nectar consistency barium there is aspiration. The detailed report of this examination will be provided by speech pathology. 2.5 minutes of fluoroscopy time was utilized for this procedure. Reviewed by RAYA Armijo 12/18/2018 03:43 P Electronically Signed by Rahat Coates MD 12/18/2018 06:29 P
[2018-12-18] MEDS: SENNA 8.6 MG TAB (SENOKOT) PO SCH (20:47)
[2018-12-18] MEDS: SIMVASTATIN 20 MG TAB PO SCH (20:47)
[2018-12-19] VITALS (19 sets, daily range): BP systolic 92–119; BP diastolic 53–70; O2SAT 92–98
[2018-12-19] MEDS: IPRATROPIUM 0.5MG/ALBUTEROL 2.5MG INH SOL UD 3ML (DUONEB)(J7620) NEB SCH ×4 (00:23→20:05)
[2018-12-19] MEDS: FUROSEMIDE 40 MG/4 ML VIAL (J1940) IV SCH (04:50)
[2018-12-19 04:58] LABS: HEMATOCRIT 34.4 % (42.0-52.0); HEMOGLOBIN 10.6 g/dl (13.5-17.5); MEAN CORPUSCULAR HEMOGLOBIN 29.9 pg (27.0-33.0); MEAN CORPUSCULAR HGB CONC 30.8 g/dl (32.0-36.5); MEAN CORPUSCULAR VOLUME 96.9 fl (80.0-96.0); PLATELET COUNT, AUTOMATED 175 10^3/uL (150-450); RED BLOOD COUNT 3.55 10^6/uL (4.30-6.10); WHITE BLOOD COUNT 11.7 10^3/uL (4.0-10.0)
[2018-12-19] MEDS: PIPERACILLIN/TAZOBACTAM SOD 3.375 GM in D5W MINI-BAG PLUS 50 ML IV SCH ×4 (05:11→22:20)
[2018-12-19 05:15] LABS: BLOOD UREA NITROGEN 32 MG/DL (7-18); CARBON DIOXIDE LEVEL 41 MEQ/L (21-32); CHLORIDE LEVEL 106 MEQ/L (98-107); GLOMERULAR FILTRATION RATE > 60.0 (>35); GLUCOSE, FASTING 96 MG/DL (70-100); POTASSIUM SERUM 3.8 MEQ/L (3.5-5.1); SODIUM LEVEL 150 MEQ/L (136-145)
[2018-12-19] MEDS ORDERED: guaiFENesin ER 600 MG TAB PO SCH (09:00)
[2018-12-19] MEDS: methylPREDNISolone INJ 40 MG/1 ML VIAL (J2920) IV SCH (09:16)
[2018-12-19] MEDS: BISACODYL 5 MG TAB PO SCH (09:17)
[2018-12-19] MEDS: POTASSIUM CHLORIDE 10 MEQ SR TABLET PO SCH (09:18)
[2018-12-19] MEDS: OMEPRAZOLE 20 MG CAP PO SCH (09:18)
[2018-12-19] MEDS: ESCITALOPRAM OXALATE 10 MG TAB (LEXAPRO) PO SCH (09:18)
[2018-12-19] MEDS: CYANOCOBALAMIN 500 MCG TAB PO SCH (09:18)
[2018-12-19] MEDS: VITAMIN D 1,000 INTERNATIONAL UNITS TABLET PO SCH (09:18)
[2018-12-19] MEDS: ATENOLOL 25 MG TAB PO SCH (09:20)
[2018-12-19] MEDS: ASPIRIN 81 MG ENTERIC TAB PO SCH (09:21)
[2018-12-19] MEDS: IPRATROPIUM 0.5MG/ALBUTEROL 2.5MG INH SOL UD 3ML (DUONEB)(J7620) NEB PRN (09:27)
--- NOTE | 2018-12-19 12:28 | IPNPDOC ---
Date Seen The patient was seen on 12/19/18. Progress Note SUBJECTIVE: patient reports feeling better today, he is breathing more easily and is not as short of breath. Patient denies fevers chills chest pressure and nausea vomiting or diarrhea OBJECTIVE PHYSICAL EXAMINATION: VITAL SIGNS: Please see below. GENERAL: Frail elderly man sitting up in bed coughing he does not appear to be in any acute distress HEENT: Cranial nerves are grossly intact CARDIOVASCULAR: Is 1 S2 is tachycardic. An irregular RESPIRATORY: Transmitted upper airway sounds, wet cough no wheeze or rhonchi. ABDOMINAL: Bowel sounds present abdomen soft and nontender Extremities: No clubbing cyanosis or edema LABORATORY DATA, IMAGING STUDIES, MICROBIOLOGY: Please see below. Echocardiogram: October 2018 1. Normal left ventricle internal dimensions and wall thickness. Normal regional left ventricular (LV) wall motion and wall thickening. Normal LV systolic function. Unable to determine LV diastolic function in the setting of atrial fibrillation. 2. Suggestive of moderate elevation of estimated right ventricle systolic pressure (55 mmHg). Normal right ventricle size and systolic function. Severe tricuspid regurgitation. Severe right atrial dilatation. 3. Severe left atrial dilatation. 4. Severe mitral annular calcification. Mild mitral regurgitation. No mitral stenosis. 5. Moderate aortic valve sclerosis of a 3-cusp aortic valve. Trace aortic regurgitation. No aortic stenosis.. DVT prophylaxis ordered?: Will start heparin twice a day subcutaneous ASSESSMENT AND PLAN: This is a 83-year-old man with cough and shortness of ketty th. PROBLEMS: 1. Cough and shortness of breath: Patient provides a history of coughing while eating he is failed a swallow eval he has a right upper lobe infiltrate and hypoxic which is not his baseline. Hypoxic respiratory failure secondary to aspiration pneumonia. He is continued on Zosyn today is day 3 follow-up speech therapy recommendations. There was some concern for decompensated congestive heart failure and as such he had been undergoing IV diuresis however this is caused a contraction alkalosis which is progressively worsening as well as hypernatremia and an elevated BUN/creatinine ratio. For the time being I'll hold off on any further IV diuresis at less provided with D5 W. I suspect there is aspiration that may be related to human metapneumovirus which is also contributing to his hypoxia. The time being he does appear to be improving we'll attempt to wean his O2. Will start mucinex, acapella and chest PT 2. Congestive heart failure: Does not appear to be grossly volume overloaded at this time I will hold off any further IV diuresis consider restarting home torsemide tomorrow. He has preserved ejection fraction continue with atenolol and blood pressure is adequately controlled 3. COPD: He is continued on IV steroids as well as antibiotics and nebulizer treatments he appears stable continue to monitor is not having audible wheeze today it is certainly not impossible given his acute viral infection that he is having some reactive bronchospasm we'll continue to wean his O2 as tolerated. He is so far only been receiving Solu-Medrol 40 mg IV daily Celexa increase this to 60 every 8 for the next 24 hours and see how he progresses 4. History of CVA: With hemorrhage he is on aspirin 81 statin and beta santo blood pressures optimized he does have a history of atrial ablation was not anticoagulated due to risk of bleeding intracranially consider outpatient follo w-up in reevaluating potential use of anticoagulation for this patient to prevent further CVAs 5. Atrial fibrillation: He is mildly tachycardic I suspect possibly related nebulizer treatments with acute hypoxia and IV steroids will continue to monitor for the time being is continued on Coreg and aspirin 81 anticoagulation as outlined above 6. Dyslipidemia: Continue with statin 7. Hypertension: Continue with beta santo well-controlled at this time 8. Dysphagia: Speech therapy eval appreciated likely mild clearance of secretions and difficulty with swallowing secondary to his acute infection DISPOSITION: Pending clinical improvement, PT, OT. Possibly to [facility] for acute rehab Saturday VS, I&O, 24H, Fishbone Vital Signs/I&O Vital Signs Date Time Temp Pulse Resp B/P (MAP) Pulse Ox O2 Delivery O2 Flow Rate FiO2 12/19/18 11:49 97.8 94 18 118/57 (77 89 3.0 12/18/18 16:00 Nasal Cannula I&O- Last 24 Hours up to 6 AM 12/19/18 06:00 Intake Total 780 ml Output Total 1425 ml Balance -645 ml Laboratory Data 24H LABS Laboratory Tests 2 12/19/18 04:35: Nucleated Red Blood Cells % (auto) 0.0, Anion Gap 3L, Glomerular Filtration Rate > 60.0, Blood Urea Nitrogen 32H, Creatinine 1.00, Sodium Level 150H, Potassium Level 3.8, Chloride Level 106, Carbon Dioxide Level 41H, Calcium Level 9.0 CBC/BMP Laboratory Tests 12/19/18 04:35 Red Blood Count 3.55 L, Mean Corpuscular Volume 96.9 H, Mean Corpuscular Hemogl obin 29.9, Mean Corpuscular Hemoglobin Concent 30.8 L, Red Cell Distribution Width 17.1 H, Calcium Level 9.0 Microbiology Microbiology 12/16/18 Blood Culture - Preliminary, Resulted No Growth after 48 hours. All Specime... 12/16/18 Blood Culture - Preliminary, Resulted No Growth after 48 hours. All Specime... 12/16/18 Respiratory Virus Panel (PCR) ([facility]) - Final, Complete Human Metapneumovirus ALFONZO SMITH MD Dec 19, 2018 12:28
[2018-12-19] MEDS ORDERED: POTASSIUM CHLORIDE 10% LIQ 20 MEQ/15 ML UDC PO ONE (14:00)
[2018-12-19] MEDS ORDERED: guaiFENesin SYRUP 200 MG/10 ML UDC PO PRN (14:00)
[2018-12-19] MEDS: D5W 1,000 ML IV SCH ×2 (14:32→22:30)
[2018-12-19] MEDS: methylPREDNISolone INJ 125 MG/2 ML VIAL (J2930) IV SCH (16:18)
[2018-12-19] MEDS: HEPARIN SOD (PORCINE) 5000 UNITS/ML VIAL SQ SCH (20:51)
[2018-12-19] MEDS: SENNA 8.6 MG TAB (SENOKOT) PO SCH (20:51)
[2018-12-19] MEDS: SIMVASTATIN 20 MG TAB PO SCH (20:51)
[2018-12-20] VITALS (12 sets, daily range): BP systolic 98–127; BP diastolic 56–67; O2SAT 88–99
[2018-12-20] MEDS: methylPREDNISolone INJ 125 MG/2 ML VIAL (J2930) IV SCH ×3 (01:43→16:20)
[2018-12-20] MEDS: IPRATROPIUM 0.5MG/ALBUTEROL 2.5MG INH SOL UD 3ML (DUONEB)(J7620) NEB SCH ×4 (02:37→20:00)
[2018-12-20] MEDS: PIPERACILLIN/TAZOBACTAM SOD 3.375 GM in D5W MINI-BAG PLUS 50 ML IV SCH ×4 (03:44→21:33)
[2018-12-20 05:53] LABS: HEMATOCRIT 34.7 % (42.0-52.0); HEMOGLOBIN 10.7 g/dl (13.5-17.5); MEAN CORPUSCULAR HEMOGLOBIN 29.9 pg (27.0-33.0); MEAN CORPUSCULAR HGB CONC 30.8 g/dl (32.0-36.5); MEAN CORPUSCULAR VOLUME 96.9 fl (80.0-96.0); PLATELET COUNT, AUTOMATED 161 10^3/uL (150-450); RED BLOOD COUNT 3.58 10^6/uL (4.30-6.10)
[2018-12-20 06:20] LABS: BLOOD UREA NITROGEN 34 MG/DL (7-18); CALCIUM LEVEL 9.2 MG/DL (8.8-10.2); CARBON DIOXIDE LEVEL 36 MEQ/L (21-32); CHLORIDE LEVEL 101 MEQ/L (98-107); CREATININE FOR GFR 0.92 MG/DL (0.70-1.30); GLOMERULAR FILTRATION RATE > 60.0 (>35); GLUCOSE, FASTING 120 MG/DL (70-100); POTASSIUM SERUM 4.5 MEQ/L (3.5-5.1); SODIUM LEVEL 142 MEQ/L (136-145)
[2018-12-20] MEDS: HEPARIN SOD (PORCINE) 5000 UNITS/ML VIAL SQ SCH ×2 (09:00→21:33)
[2018-12-20] MEDS: ASPIRIN 81 MG ENTERIC TAB PO SCH (09:00)
[2018-12-20] MEDS: BISACODYL 5 MG TAB PO SCH (09:00)
[2018-12-20] MEDS: ESCITALOPRAM OXALATE 10 MG TAB (LEXAPRO) PO SCH (09:00)
[2018-12-20] MEDS: VITAMIN D 1,000 INTERNATIONAL UNITS TABLET PO SCH (09:00)
[2018-12-20] MEDS: ATENOLOL 25 MG TAB PO SCH (09:01)
[2018-12-20] MEDS: OMEPRAZOLE 20 MG CAP PO SCH (09:01)
[2018-12-20] MEDS: CYANOCOBALAMIN 500 MCG TAB PO SCH (09:01)
--- NOTE | 2018-12-20 13:16 | IPNPDOC ---
Date Seen The patient was seen on 12/20/18. Progress Note SUBJECTIVE: patient reports feeling better today, he is breathing more easily he denies shortness of breath. Patient denies fevers chills chest pressure and nausea vomiting or diarrhea OBJECTIVE PHYSICAL EXAMINATION: VITAL SIGNS: Please see below. GENERAL: Frail elderly man laying in bed coughing he does not appear to be in any acute distress HEENT: Cranial nerves are grossly intact CARDIOVASCULAR: s1 S2 is tirregular but not tachycardic today RESPIRATORY: Transmitted upper airway sounds, wet cough no wheeze or rhonchi. ABDOMINAL: Bowel sounds present abdomen soft and nontender Extremities: No clubbing cyanosis or edema LABORATORY DATA, IMAGING STUDIES, MICROBIOLOGY: Please see below. Echocardiogram: October 2018 1. Normal left ventricle internal dimensions and wall thickness. Normal regional left ventricular (LV) wall motion and wall thickening. Normal LV systolic function. Unable to determine LV diastolic function in the setting of atrial fibrillation. 2. Suggestive of moderate elevation of estimated right ventricle systolic pressure (55 mmHg). Normal right ventricle size and systolic function. Severe tricuspid regurgitation. Severe right atrial dilatation. 3. Severe left atrial dilatation. 4. Severe mitral annular calcification. Mild mitral regurgitation. No mitral stenosis. 5. Moderate aortic valve sclerosis of a 3-cusp aortic valve. Trace aortic regurgitation. No aortic stenosis.. DVT prophylaxis ordered?: Will start heparin twice a day subcutaneous ASSESSMENT AND PLAN: This is a 83-year-old man with cough and shortness of breath. PROBLEMS: 1. Cough and shortness of breath: Patient provides a history of coughing while e ating he is failed a swallow eval he has a right upper lobe infiltrate and hypoxic which is not his baseline. Hypoxic respiratory failure secondary to aspiration pneumonia. He is continued on Zosyn today is day 4. There was some concern for decompensated congestive heart failure and as such he had been undergoing IV diuresis however this is caused a contraction alkalosis which is progressively worsening as well as hypernatremia and an elevated BUN/creatinine ratio. I suspect there is aspiration that may be related to human metapneumovirus which is also contributing to his hypoxia. The time being he does appear to be improving we'll attempt to wean his O2. con't with mucinex, acapella and chest PT. He is improving, will encourage OOB for meals 2. Congestive heart failure: Does not appear to be grossly volume overloaded at this time I will hold off any further IV diuresis consider restarting home torsemide tomorrow. He has preserved ejection fraction continue with atenolol and blood pressure is adequately controlled 3. COPD: He is continued on IV steroids as well as antibiotics and nebulizer treatments he appears stable continue to monitor is not having audible wheeze today it is certainly not impossible given his acute viral infection that he is having some reactive bronchospasm we'll continue to wean his O2 as tolerated. 4. History of CVA: With hemorrhage he is on aspirin 81 statin and beta santo blood pressures optimized he does have a history of atrial ablation was not anticoagulated due to risk of bleeding intracranially consider outpatient follow-up in reevaluating potential use of anticoagulation for this patient to prevent further CVAs 5. Atrial fibrillation: He is mildly tachycardic but better rate controlled today I suspect possibly related nebulizer treatments with acute hypoxia and IV steroids will continue to monitor for the time being is continued on atenolol and aspirin 81 anticoagulation as outlined above. Con't to monitor 6. Dyslipidemia: Continue with statin 7. Hypertension: Continue with beta santo well-controlled at this time 8. Dysphagia: Speech therapy eval appreciated likely mild clearance of secretions and difficulty with swallowing secondary to his acute infection DISPOSITION: Pending clinical improvement, PT, OT. Possibly to [facility] for acute rehab Saturday VS, I&O, 24H, [facility] Vital Signs/I&O Vital Signs Date Time Temp Pulse Resp B/P (MAP) Pulse Ox O2 Delivery O2 Flow Rate FiO2 12/20/18 11:35 97.7 92 18 127/58 (81) 96 3.0 12/20/18 08:00 Nasal Cannula I&O- Last 24 Hours up to 6 AM 12/20/18 06:00 Intake Total 2560 ml Output Total 700 ml Balance 1860 ml Laboratory Data 24H LABS Laboratory Tests 2 12/20/18 05:10: Nucleated Red Blood Cells % (auto) 0.0, Anion Gap 5L, Glomerular Filtration Rate > 60.0, Blood Urea Nitrogen 34H, Creatinine 0.92, Sodium Level 142#, Potassium Level 4.5, Chloride Level 101, Carbon Dioxide Level 36H, Calcium Level 9.2 CBC/BMP Laboratory Tests 12/20/18 05:10 Red Blood Count 3.58 L, Mean Corpuscular Volume 96.9 H, Mean Corpuscular Hemoglobin 29.9, Mean Corpuscular Hemoglobin Concent 30.8 L, Red Cell D istribution Width 16.9 H, Calcium Level 9.2 Microbiology Microbiology 12/16/18 Blood Culture - Preliminary, Resulted No Growth after 72 hours. All specime... 12/16/18 Blood Culture - Preliminary, Resulted No Growth after 72 hours. All specime... 12/16/18 Respiratory Virus Panel (PCR) ([facility]) - Final, Complete Human Metapneumovirus ALFONZO SMITH MD Dec 20, 2018 13:16
[2018-12-20] MEDS: ASPIRIN 81 MG CHEW TABLET PO SCH (14:56)
[2018-12-20] MEDS: SIMVASTATIN 20 MG TAB PO SCH (21:33)
[2018-12-20] MEDS: SENNA 8.6 MG TAB (SENOKOT) PO SCH (21:33)
[2018-12-21] MEDS: methylPREDNISolone INJ 125 MG/2 ML VIAL (J2930) IV SCH ×2 (00:06→09:21)
[2018-12-21] MEDS: IPRATROPIUM 0.5MG/ALBUTEROL 2.5MG INH SOL UD 3ML (DUONEB)(J7620) NEB SCH ×4 (01:55→21:45)
[2018-12-21 03:41] VITALS: O2SAT 90
[2018-12-21] MEDS: PIPERACILLIN/TAZOBACTAM SOD 3.375 GM in D5W MINI-BAG PLUS 50 ML IV SCH ×2 (04:57→09:20)
[2018-12-21 06:00] VITALS: BP 103/64
[2018-12-21 06:33] LABS: HEMATOCRIT 32.7 % (42.0-52.0); HEMOGLOBIN 10.3 g/dl (13.5-17.5); MEAN CORPUSCULAR HEMOGLOBIN 29.2 pg (27.0-33.0); MEAN CORPUSCULAR HGB CONC 31.5 g/dl (32.0-36.5); MEAN CORPUSCULAR VOLUME 92.6 fl (80.0-96.0); PLATELET COUNT, AUTOMATED 162 10^3/uL (150-450); RED BLOOD COUNT 3.53 10^6/uL (4.30-6.10); WHITE BLOOD COUNT 10.4 10^3/uL (4.0-10.0)
[2018-12-21 06:59] LABS: BLOOD UREA NITROGEN 37 MG/DL (7-18); CARBON DIOXIDE LEVEL 36 MEQ/L (21-32); CHLORIDE LEVEL 99 MEQ/L (98-107); CREATININE FOR GFR 0.85 MG/DL (0.70-1.30); GLOMERULAR FILTRATION RATE > 60.0 (>35); GLUCOSE, FASTING 129 MG/DL (70-100); POTASSIUM SERUM 4.1 MEQ/L (3.5-5.1); SODIUM LEVEL 141 MEQ/L (136-145)
[2018-12-21] MEDS: ASPIRIN 81 MG CHEW TABLET PO SCH (09:20)
[2018-12-21] MEDS: VITAMIN D 1,000 INTERNATIONAL UNITS TABLET PO SCH (09:20)
[2018-12-21] MEDS: BISACODYL 5 MG TAB PO SCH (09:20)
[2018-12-21] MEDS: ESCITALOPRAM OXALATE 10 MG TAB (LEXAPRO) PO SCH (09:20)
[2018-12-21] MEDS: OMEPRAZOLE 20 MG CAP PO SCH (09:20)
[2018-12-21] MEDS: CYANOCOBALAMIN 500 MCG TAB PO SCH (09:20)
[2018-12-21] MEDS: HEPARIN SOD (PORCINE) 5000 UNITS/ML VIAL SQ SCH ×2 (09:21→20:47)
[2018-12-21] MEDS: ATENOLOL 25 MG TAB PO SCH (09:21)
[2018-12-21] MEDS: IPRATROPIUM 0.5MG/ALBUTEROL 2.5MG INH SOL UD 3ML (DUONEB)(J7620) NEB PRN (12:07)
--- NOTE | 2018-12-21 13:11 | IPNPDOC ---
Date Seen The patient was seen on 12/21/18. Progress Note SUBJECTIVE: patient reports feeling better today, he has no complaints at this time OBJECTIVE PHYSICAL EXAMINATION: VITAL SIGNS: Please see below. GENERAL: Frail elderly man laying in bed he does not appear to be in any acute distress, appears more energetic than previous days exams HEENT: Cranial nerves are grossly intact CARDIOVASCULAR: s1 S2 irregular but not tachycardic RESPIRATORY: Transmitted upper airway sounds, wet cough no wheeze or rhonchi. ABDOMINAL: Bowel sounds present abdomen soft and nontender, scaphoid Extremities: No clubbing cyanosis or edema LABORATORY DATA, IMAGING STUDIES, MICROBIOLOGY: Please see below. Echocardiogram: October 2018 1. Normal left ventricle internal dimensions and wall thickness. Normal regional left ventricular (LV) wall motion and wall thickening. Normal LV systolic function. Unable to determine LV diastolic function in the setting of atrial fibrillation. 2. Suggestive of moderate elevation of estimated right ventricle systolic pressure (55 mmHg). Normal right ventricle size and systolic function. Severe tricuspid regurgitation. Severe right atrial dilatation. 3. Severe left atrial dilatation. 4. Severe mitral annular calcification. Mild mitral regurgitation. No mitral stenosis. 5. Moderate aortic valve sclerosis of a 3-cusp aortic valve. Trace aortic regurgitation. No aortic stenosis.. DVT prophylaxis ordered?: Will start heparin twice a day subcutaneous ASSESSMENT AND PLAN: This is a 83-year-old man with cough and shortness of breath. PROBLEMS: 1. Cough and shortness of breath: Patient provides a history of coughing while eating he is failed a swallow eval he has a right upper lobe infiltrate and hypoxic which is not his baseline. Hypoxic respiratory failure secondary to aspiration pneumonia. He is continued on Zosyn today is day 5, I will transition him to by mouth levofloxacin preparation for disposition his cultures have thus far been unremarkable. there was some concern for decompensated congestive heart failure and as such he had been undergoing IV diuresis however this is caused a contraction alkalosis which is progressively worsening as well as hypernatremia and an elevated BUN/creatinine ratio. I suspect there is aspiration that may be related to human metapneumovirus which is also contributing to his hypoxia. The time being he does appear to be improving we'll attempt to wean his O2. con't with mucinex, acapella and chest PT. He is improving, will encourage OOB for meals 2. Congestive heart failure: Does not appear to be grossly volume overloaded at this time I will hold off any further IV diuresis and will restart home torsemide. He has preserved ejection fraction continue with atenolol and blood pressure is adequately controlled, certainly evidence of cor pulmonale on his echo. 3. COPD: He is continued on IV steroids as well as antibiotics and nebulizer treatments he appears stable continue to monitor is not having audible wheeze today it is certainly not impossible given his acute viral infection that he is having some reactive bronchospasm we'll continue to wean his O2 as tolerated. 4. History of CVA: With hemorrhage he is on aspirin 81 statin and beta santo blood pressures optimized he does have a history of atrial ablation was not ant icoagulated due to risk of bleeding intracranially consider outpatient follow-up in reevaluating potential use of anticoagulation for this patient to prevent further CVAs 5. Atrial fibrillation: rate controlled for the time being is continued on atenolol and aspirin 8,1 anticoagulation as outlined above. Con't to monitor 6. Dyslipidemia: Continue with statin 7. Hypertension: Continue with beta santo well-controlled at this time 8. Dysphagia: Speech therapy eval appreciated likely mild clearance of secretions and difficulty with swallowing secondary to his acute infection DISPOSITION: likely to [facility] for acute rehab tomorrow VS, [facility]&O[facility] Vital Signs/I&O Vital Signs Date Time Temp Pulse Resp B/P (MAP) Pulse Ox O2 Delivery O2 Flow Rate FiO2 12/21/18 09:21 88 127/80 12/21/18 09:00 1.0 12/21/18 06:00 97.7 20 92 12/21/18 03:41 Nasal Cannula I&O- Last 24 Hours up to 6 AM 12/21/18 06:00 Intake Total 1170 ml Output Total 805 ml Balance 365 ml Laboratory Data 24H LABS Laboratory Tests 2 12/21/18 06:05: Anion Gap 6L, Glomerular Filtration Rate > 60.0, Blood Urea Nitrogen 37H, Creatinine 0.85, Sodium Level 141, Potassium Level 4.1, Chloride Level 99, Carbon Dioxide Level 36H, Calcium Level 9.0 12/21/18 06:06: Nucleated Red Blood Cells % (auto) 0.0 CBC/BMP Laboratory Tests 12/21/18 06:05 Calcium Level 9.0 12/21/18 06:06 Red Blood Count 3.53 L, Mean Corpuscular Volume 92.6, Mean Corpuscular Hemoglobin 29.2, Mean Corpuscular Hemoglobin Concent 31.5 L, Red Cell Distribution Width 16.8 H Microbiology Microbiology 12/16/18 Blood Culture - Preliminary, Resulted No Growth after 72 hours. All specime... 12/16/18 Blood Culture - Preliminary, Resulted No Growth after 72 hours. All specime... 12/16/18 Respiratory Virus Panel (PCR) ([facility]) - Final, Complete Human Metapneumovirus ALFONZO SMITH MD Dec 21, 2018 13:11
[2018-12-21 14:00] VITALS: BP 127/68
[2018-12-21] MEDS: TORSEMIDE 20 MG TAB PO SCH (15:30)
[2018-12-21 16:43] VITALS: O2SAT 92
[2018-12-21] MEDS: SENNA 8.6 MG TAB (SENOKOT) PO SCH (20:23)
[2018-12-21] MEDS: SIMVASTATIN 20 MG TAB PO SCH (20:46)
[2018-12-21 22:00] VITALS: BP 105/58; O2SAT 92
[2018-12-22] MEDS: IPRATROPIUM 0.5MG/ALBUTEROL 2.5MG INH SOL UD 3ML (DUONEB)(J7620) NEB SCH ×4 (02:00→19:51)
[2018-12-22] MEDS: LevoFLOXacin 500 MG TABLET PO SCH (05:19)
[2018-12-22 06:00] VITALS: BP 104/71
[2018-12-22 06:30] LABS: HEMATOCRIT 33.2 % (42.0-52.0); HEMOGLOBIN 10.5 g/dl (13.5-17.5); MEAN CORPUSCULAR HEMOGLOBIN 29.7 pg (27.0-33.0); MEAN CORPUSCULAR HGB CONC 31.6 g/dl (32.0-36.5); MEAN CORPUSCULAR VOLUME 93.8 fl (80.0-96.0); PLATELET COUNT, AUTOMATED 158 10^3/uL (150-450); RED BLOOD COUNT 3.54 10^6/uL (4.30-6.10); WHITE BLOOD COUNT 8.9 10^3/uL (4.0-10.0)
[2018-12-22 06:53] LABS: BLOOD UREA NITROGEN 35 MG/DL (7-18); CALCIUM LEVEL 9.1 MG/DL (8.8-10.2); CARBON DIOXIDE LEVEL 39 MEQ/L (21-32); CHLORIDE LEVEL 99 MEQ/L (98-107); CREATININE FOR GFR 0.87 MG/DL (0.70-1.30); GLOMERULAR FILTRATION RATE > 60.0 (>35); GLUCOSE, FASTING 120 MG/DL (70-100); POTASSIUM SERUM 3.7 MEQ/L (3.5-5.1); SODIUM LEVEL 141 MEQ/L (136-145)
[2018-12-22] MEDS: CYANOCOBALAMIN 500 MCG TAB PO SCH (10:14)
[2018-12-22] MEDS: ASPIRIN 81 MG CHEW TABLET PO SCH (10:14)
[2018-12-22] MEDS: VITAMIN D 1,000 INTERNATIONAL UNITS TABLET PO SCH (10:14)
[2018-12-22] MEDS: OMEPRAZOLE 20 MG CAP PO SCH (10:14)
[2018-12-22] MEDS: BISACODYL 5 MG TAB PO SCH (10:14)
[2018-12-22] MEDS: ESCITALOPRAM OXALATE 10 MG TAB (LEXAPRO) PO SCH (10:15)
[2018-12-22] MEDS: TORSEMIDE 20 MG TAB PO SCH (10:15)
[2018-12-22] MEDS: ATENOLOL 25 MG TAB PO SCH (10:16)
[2018-12-22] MEDS: HEPARIN SOD (PORCINE) 5000 UNITS/ML VIAL SQ SCH ×2 (10:16→21:00)
[2018-12-22] MEDS: predniSONE 20 MG TAB PO SCH (10:17)
[2018-12-22 14:00] VITALS: BP 112/68
--- NOTE | 2018-12-22 15:14 | IPNPDOC ---
Date Seen The patient was seen on 12/22/18. Progress Note SUBJECTIVE: Patient has no complaints this morning, nor are than events reported overnight. He states he is coughing up thick white sputum but otherwise is feeling well. OBJECTIVE PHYSICAL EXAMINATION: VITAL SIGNS: Please see below. GENERAL: laying in bed, no acute distress HEENT: moist mucus membranes, EOMI, no thyromegaly CARDIOVASCULAR: irregularly irregular rhythm, no murmurs/rubs/gallops RESPIRATORY: some crackles at bases bilaterally ABDOMINAL: soft, nontender to palpation, +BS EXTREMITIES: no clubbing/cyanosis/edema NEUROLOGICAL: no focal deficits appreciated PSYCHOLOGICAL: normal mood/affect LABORATORY DATA, IMAGING STUDIES, MICROBIOLOGY: Please see below. DVT prophylaxis ordered?: [facility] ASSESSMENT AND PLAN: This is an 83 YO M with history of pulmonary fibrosis, COPD and cor pulmonale who presented with SOB found to be fluid overloaded. PROBLEMS: 1. Acute on chronic hypoxic respiratory failure: patient is on 1L NC with oxygen saturation between 90-95% at this time. Continues to have cough productive of thick white sputum. -s/p Zosyn x 5 days transitioned to PO Levaquin -Cultures negative 2. dCHF: s/p IV diuresis. Patient does not appear grossly fluid overloaded on exam -Continue Torsemide 3. COPD: -continue Prednisone 4. History of CVA 5. Atrial fibrillation: VSS -Continue Atenolol 6. DLP: -Continue Zocor 7. HTN: Stable 8. Dysphagia: stable DISPOSITION: possible dc to [facility] tomorrow VS, I&O, 24H, Fishbone Vital Signs/I&O Vital Signs Date Time Temp Pulse Resp B/P (MAP) Pulse Ox O2 Delivery O2 Flow Rate FiO2 12/22/18 10:16 78 123/88 12/22/18 06:00 97.5 20 93 1.0 12/21/18 22:00 Nasal Cannula I&O- Last 24 Hours up to 6 AM 12/22/18 06:00 Intake Total 970 ml Output Total 1000 ml Balance -30 ml Laboratory Data 24H LABS Laboratory Tests 2 12/22/18 06:08: Nucleated Red Blood Cells % (auto) 0.0, Anion Gap 3L, Glomerular Filtration Rate > 60.0, Blood Urea Nitrogen 35H, Creatinine 0.87, Sodium Level 141, Potassium Level 3.7, Chloride Level 99, Carbon Dioxide Level 39H, Calcium Level 9.1 CBC/BMP Laboratory Tests 12/22/18 06:08 Red Blood Count 3.54 L, Mean Corpuscular Volume 93.8, Mean Corpuscular Hemoglobin 29.7, Mean Corpuscular Hemoglobin Concent 31.6 L, Red Cell Distribution Width 16.5 H, Calcium Level 9.1 Microbiology Microbiology 12/16/18 Blood Culture - Final, Complete NO GROWTH AFTER 5 DAYS 12/16/18 Blood Culture - Final, Complete NO GROWTH AFTER 5 DAYS 12/16/18 Respiratory Virus Panel (PCR) ([facility]) - Final, Complete Human Metapneumovirus GME ATTESTATION GME ATTESTATION My faculty preceptor for this patient encounter was physically present during the encounter and was fully available. All aspects of the patient interview, examination, medical decision making process, and medical care plan development were reviewed and approved by the faculty preceptor. The faculty preceptor is aware and concurs with the plan as stated in the body of this note and will attest to such by his/her cosignature. CURT ANDRADE MD Dec 22, 2018 15:14
[2018-12-22 22:00] VITALS: BP 116/73
[2018-12-23] MEDS: SIMVASTATIN 20 MG TAB PO SCH (00:44)
[2018-12-23] MEDS: SENNA 8.6 MG TAB (SENOKOT) PO SCH (00:45)
[2018-12-23] MEDS: IPRATROPIUM 0.5MG/ALBUTEROL 2.5MG INH SOL UD 3ML (DUONEB)(J7620) NEB SCH ×2 (02:00→07:44)
[2018-12-23 06:00] VITALS: BP 164/78
[2018-12-23 06:41] LABS: HEMATOCRIT 35.6 % (42.0-52.0); HEMOGLOBIN 11.1 g/dl (13.5-17.5); MEAN CORPUSCULAR HEMOGLOBIN 29.1 pg (27.0-33.0); MEAN CORPUSCULAR HGB CONC 31.2 g/dl (32.0-36.5); MEAN CORPUSCULAR VOLUME 93.2 fl (80.0-96.0); PLATELET COUNT, AUTOMATED 160 10^3/uL (150-450); RED BLOOD COUNT 3.82 10^6/uL (4.30-6.10); WHITE BLOOD COUNT 7.2 10^3/uL (4.0-10.0)
[2018-12-23 06:54] LABS: BLOOD UREA NITROGEN 33 MG/DL (7-18); CALCIUM LEVEL 9.2 MG/DL (8.8-10.2); CARBON DIOXIDE LEVEL 39 MEQ/L (21-32); CHLORIDE LEVEL 99 MEQ/L (98-107); CREATININE FOR GFR 0.74 MG/DL (0.70-1.30); GLOMERULAR FILTRATION RATE > 60.0 (>35); GLUCOSE, FASTING 87 MG/DL (70-100); POTASSIUM SERUM 3.3 MEQ/L (3.5-5.1); SODIUM LEVEL 142 MEQ/L (136-145)
[2018-12-23] MEDS: LevoFLOXacin 500 MG TABLET PO SCH (06:58)
[2018-12-23] MEDS ORDERED: POTASSIUM CHLORIDE 10 MEQ SR TABLET PO ONE (08:45)
[2018-12-23] MEDS: HEPARIN SOD (PORCINE) 5000 UNITS/ML VIAL SQ SCH (09:00)
[2018-12-23] MEDS: CYANOCOBALAMIN 500 MCG TAB PO SCH (10:41)
[2018-12-23] MEDS: OMEPRAZOLE 20 MG CAP PO SCH (10:41)
[2018-12-23] MEDS: ASPIRIN 81 MG CHEW TABLET PO SCH (10:41)
[2018-12-23] MEDS: predniSONE 20 MG TAB PO SCH (10:41)
[2018-12-23] MEDS: TORSEMIDE 20 MG TAB PO SCH (10:42)
[2018-12-23] MEDS: VITAMIN D 1,000 INTERNATIONAL UNITS TABLET PO SCH (10:42)
[2018-12-23] MEDS: ESCITALOPRAM OXALATE 10 MG TAB (LEXAPRO) PO SCH (10:42)
[2018-12-23 10:43] VITALS: BP 111/58
[2018-12-23] MEDS: ATENOLOL 25 MG TAB PO SCH (10:43)
[2018-12-23] MEDS: BISACODYL 5 MG TAB PO SCH (10:43)
[2018-12-23] MEDS ORDERED: LEVA1TAB2 PO (11:21)
--- NOTE | 2018-12-23 12:18 | DS.PDOC ---
Discharge Summary General Date of Admission Dec 16, 2018 at 18:49 Date of Discharge 12/23/18 Attending Physician: ALEJA GLOVER MD Discharge Summary PROCEDURES PERFORMED DURING STAY: [None]. ADMITTING DIAGNOSES: 1. Acute on chronic hypoxic respiratory failure. 2. HFpEF 3. COPD 4. hx CVA 5. Afib 6. HLD 7. HTN DISCHARGE DIAGNOSES: 1. Acute on chronic hypoxic respiratory failure w/ RUL Pneumonia. 2. HFpEF 3. COPD 4. hx CVA 5. Afib 6. HLD 7. HTN COMPLICATIONS/CHIEF COMPLAINT: SOB HISTORY OF PRESENT ILLNESS: "Kev Mathis is an 83-year-old with a history of pulmonary fibrosis and probable cor pulmonale, who was admitted with increasing edema of his legs, shortness of breath, and a cough productive of some mild sputum. There is a diagnosis of "COPD," but I do not think that there is any spirometry to support that diagnosis. I think he more likely has some restrictive lung disease from some significant pulmonary fibrosis. He has echocardiographic evidence of right-sided heart failure with an echocardiogram 10/25/2018 that showed left atrial dilatation, 56 mm, severe right atrial dilatation, moderate elevation of right-sided systolic pressures at 55 mm. Normal left ventricular ejection fraction. Mild mitral regurgitation. He was just in the hospital 12/05/2018-12/14/2018 on the hospitalist service. He had some atypical chest pain. Myocardial infarction (VA) was ruled out. He was felt to have some congestive heart failure (CHF), probably related to right-sided failure. He had some gastrointestinal (GI) problems, including fecal impaction that was worked up with a CT scan." HOSPITAL COURSE: Patient is an 83-year-old male with past medical history of pulmonary fibrosis and probable cor pulmonale admitted for shortness of breath and lower extremity edema. Uncertain if COPD was formally diagnosed or components of pulmonary fibrosis and restrictive lung disease. Patient was diuresed and started steroids and antibiotics with RUL pneumonia with gradual improvement. Patient has poor pulmonary function at baseline and is on 1L home O2. He initially required hig her O2 requirement but was able to wean down back to home level at 1L. He was also noted to have dysphagia and underwent MBS, placed on Pureed diet currently. He currently reports feeling fine without any significant complaints. Will discharge patient to Rehab and follow up with PCP as outpatient. DISCHARGE MEDICATIONS: Please see below. ALLERGIES: Please see below. PHYSICAL EXAMINATION ON DISCHARGE: VITAL SIGNS: Please see below. LABORATORY DATA: Please see below. IMAGING: Chest CT- Impression: New infiltrate posteriorly in the right upper lobe. There are other chronic findings as described. Modified barium swallow- The procedure was performed with Tamica Caraballo from speech pathology present. 5 ml aliquots of nectar, honey and pudding consistency barium was administered. With nectar consistency barium there is aspiration. The detailed report of this examination will be provided by speech pathology. 2.5 minutes of fluoroscopy time was utilized for this procedure. ACTIVITY: [As tolerated]. DIET: Pureed diet DISCHARGE PLAN: Complete course of antibiotics and f/u with PCP. DISPOSITION: Rehab. DISCHARGE INSTRUCTIONS: 1. Complete course of antibiotics. 2. f/u PCP. ITEMS TO FOLLOWUP ON ON OUTPATIENT: 1. None DISCHARGE CONDITION: [Stable]. TIME SPENT ON DISCHARGE: Greater than 30 minutes. Vital Signs/I&Os Vital Signs Date Time Temp Pulse Resp B/P (MAP) Pulse Ox O2 Delivery O2 Flow Rate FiO2 12/23/18 10:43 109 111/58 12/23/18 06:00 97.7 20 93 1.0 12/21/18 22:00 Nasal Cannula I&O- Last 24 Hours up to 6 AM 12/23/18 06:00 Intake Total 460 ml Output Total 1100 ml Balance -640 ml Laboratory Data Labs 24H Laboratory Tests 2 12/23/18 06:01: Nucleated Red Blood Cells % (auto) 0.0, Anion Gap 4L, Glomerular Filtration Rate > 60.0, Blood Urea Nitrogen 33H, Creatinine 0.74, Sodium Level 142, Potassium Level 3.3L, Chloride Level 99, Carbon Dioxide Level 39H, Calcium Level 9.2 CBC/BMP Laboratory Tests 12/23/18 06:01 Red Blood Count 3.82 L, Mean Corpuscular Volume 93.2, Mean Corpuscular Hemoglobin 29.1, Mean Corpuscular Hemoglobin Concent 31.2 L, Red Cell Distribution Width 16.6 H, Calcium Level 9.2 Microbiology Microbiology 12/16/18 Blood Culture - Final, Complete NO GROWTH AFTER 5 DAYS 12/16/18 Blood Culture - Final, Complete NO GROWTH AFTER 5 DAYS 12/16/18 Respiratory Virus Panel (PCR) ([facility]) - Final, Complete Human Metapneumovirus Discharge Medications Scheduled Aspirin (Aspirin EC) 81 Mg Tab, 81 MG PO DAILY, (Reported) Atenolol (Atenolol) 25 Mg Tab, 25 MG PO DAILY, (Reported) Bimatoprost (Lumigan) 50 Drop/2.5 Ml Veronica, 1 DROP OU QHS, (Reported) Bisacodyl (Bisacodyl) 5 Mg Tab, 10 MG PO DAILY, (Reported) Cholecalciferol (Vitamin D3) (Vitamin D3) 1,000 Unit Tab, 1,000 UNIT PO DAILY, (Reported) Cyanocobalamin (Vitamin B-12) (Vitamin B-12) 1,000 Mcg Tab, 1,000 MCG PO DAILY, (Reported) Cyclosporine (Restasis) 0.05 % Emu, 1 DROP OU BID, (Reported) Escitalopram Oxalate (Lexapro) 10 Mg Tab, 10 MG PO DAILY, (Reported) Levofloxacin (Levaquin) 500 Mg Tablet, 500 MG PO DAILY Multivitamins (Thera M Plus Tablet) 1 Tab Tab, 1 TAB PO DAILY, (Reported) Omeprazole (Omeprazole) 20 Mg Cap, 20 MG PO DAILY, (Reported) Potassium Chloride (Potassium Chloride) 20 Meq Tab, 40 MEQ PO DAILY, (Reported) Sennosides (Senna Lax) 8.6 Mg Tablet, 8.6 MG PO QHS, (Reported) Simvastatin (Simvastatin) 20 Mg Tab, 20 MG PO QHS, (Reported) Torsemide (Torsemide) 20 Mg Tab, 20 MG PO DAILY, (Reported) Scheduled PRN Albuterol Sulfate (Ventolin Hfa) 108 Mcg/Act Aer, 2 PUFF INH Q4H PRN for SHORTNESS OF BREATH, (Reported) Salmeterol/Fluticasone (Advair 250-50 Diskus) 14 Puff/Inhaler Aerp, 1 PUFF INH BID PRN for SHORTNESS OF BREATH, (Reported) PATIENT STATES HE IS USING PRN Allergies Coded Allergies: No Known Allergies (Verified , 05/11/04) ALEJA GLOVER MD Dec 23, 2018 12:18
[2018-12-27] MEDS ORDERED: PIPERACILLIN/TAZOBACTAM SOD 3.375 GM in D5W MINI-BAG PLUS 50 ML IV SCH (02:00)
== END 2018-12-23 13:25 | DRG 291 ==
LOC: EDBD 15:05 → M ED 15:05 → M ED INP 18:49 → M PCU 20:30 → M MSPAV 12-20 15:40
PROVIDERS: ADMIT Family Medicine; ATTEND Student in an Organized Health Care Education/Training Program
DX: I11.0 Hypertensive heart disease with heart failure (principal); J18.9 Pneumonia, unspecified organism; I26.09 Other pulmonary embolism with acute cor pulmonale; J84.10 Pulmonary fibrosis, unspecified; I48.91 Unspecified atrial fibrillation; Z86.73 Personal history of transient ischemic attack (TIA), and cerebral infarction without residual deficits; I50.813 Acute on chronic right heart failure; I34.0 Nonrheumatic mitral (valve) insufficiency; Z79.82 Long term (current) use of aspirin; Z79.899 Other long term (current) drug therapy; M41.9 Scoliosis, unspecified; E78.5 Hyperlipidemia, unspecified; E53.8 Deficiency of other specified B group vitamins; E55.9 Vitamin D deficiency, unspecified; Z87.891 Personal history of nicotine dependence; Z66 Do not resuscitate; R13.10 Dysphagia, unspecified

== ENCOUNTER → 2018-12-25 | Outpatient (REF) ==
[~2018-12-25] MED LIST changes: +GNP8.6TA PO; +LEVA1TAB2 PO
[2018-12-25 10:59] LABS: BLOOD UREA NITROGEN 28 MG/DL (7-18); CARBON DIOXIDE LEVEL 38 MEQ/L (21-32); CHLORIDE LEVEL 102 MEQ/L (98-107); CHOLESTEROL LEVEL 123 MG/DL (<200); CHOLESTEROL RISK RATIO 2.277 (<5); CREATININE FOR GFR 0.87 MG/DL (0.70-1.30); GLOMERULAR FILTRATION RATE > 60.0 (>35); GLUCOSE, FASTING 154 MG/DL (70-100); HDL CHOLESTEROL 54 MG/DL (>40); LDL CHOLESTEROL 61 MG/DL (<100); NON-HDL-C 69 MG/DL; POTASSIUM SERUM 4.3 MEQ/L (3.5-5.1); SODIUM LEVEL 145 MEQ/L (136-145); TRIGLYCERIDES LEVEL 42 MG/DL (<150); VITAMIN B12 LEVEL > 2000 PG/ML (247-911)
[2018-12-25 12:28] LABS: NT-PRO BNP 442 PG/ML (<450)
== END ==
LOC: SKLAB4 10:33
PROVIDERS: ATTEND Internal Medicine
DX: I50.9 Heart failure, unspecified (principal); E78.5 Hyperlipidemia, unspecified; D51.9 Vitamin B12 deficiency anemia, unspecified

== ENCOUNTER → 2019-01-01 | Outpatient (REF) ==
[2019-01-01 10:19] LABS: BLOOD UREA NITROGEN 18 MG/DL (7-18); CALCIUM LEVEL 8.4 MG/DL (8.8-10.2); CARBON DIOXIDE LEVEL 34 MEQ/L (21-32); CHLORIDE LEVEL 105 MEQ/L (98-107); CREATININE FOR GFR 0.63 MG/DL (0.70-1.30); GLOMERULAR FILTRATION RATE > 60.0 (>35); GLUCOSE, FASTING 146 MG/DL (70-100); POTASSIUM SERUM 4.1 MEQ/L (3.5-5.1); SODIUM LEVEL 145 MEQ/L (136-145)
== END ==
LOC: SKLAB4 11:06
PROVIDERS: ATTEND Internal Medicine
DX: I50.9 Heart failure, unspecified (principal)

== ENCOUNTER → 2019-01-06 | Outpatient (REF) | payer MEDICARE, OTHER ==
--- NOTE | 2019-01-06 15:53 | REP ---
Chest one-view HISTORY: Shortness of breath Comparison: 12/16/2018 There is elevation of the right hemidiaphragm. Linear densities are present in the right lower lobe consistent with atelectasis or scar. There is an increase in interstitial markings in the left lung unchanged compared to the previous study. The cardiac silhouette is enlarged. The pulmonary vasculature is normal in appearance. Impression: 1. Right lower lobe atelectasis or scar. 2. There is chronic interstitial change in the left lung. 3. Cardiomegaly. Electronically Signed by Eliud Nelson MD 01/06/2019 03:45 P
== END ==
LOC: SKLAB4 11:13
PROVIDERS: ATTEND Internal Medicine
DX: R06.02 Shortness of breath (principal); J84.10 Pulmonary fibrosis, unspecified

== ENCOUNTER → 2019-01-08 | Outpatient (REF) | payer MEDICARE, OTHER ==
[2019-01-08 08:58] LABS: BLOOD UREA NITROGEN 13 MG/DL (7-18); CALCIUM LEVEL 8.4 MG/DL (8.8-10.2); CARBON DIOXIDE LEVEL 38 MEQ/L (21-32); CHLORIDE LEVEL 103 MEQ/L (98-107); CREATININE FOR GFR 0.76 MG/DL (0.70-1.30); GLOMERULAR FILTRATION RATE > 60.0 (>35); GLUCOSE, FASTING 147 MG/DL (70-100); POTASSIUM SERUM 3.3 MEQ/L (3.5-5.1); SODIUM LEVEL 145 MEQ/L (136-145)
== END ==
LOC: SKLAB4 10:49
PROVIDERS: ATTEND Internal Medicine
DX: I50.9 Heart failure, unspecified (principal)

== ENCOUNTER → 2019-01-09 | Outpatient (REF) | payer MEDICARE, OTHER ==
[2019-01-09 10:40] LABS: HEMATOCRIT 32.2 % (42.0-52.0); HEMOGLOBIN 9.9 g/dl (13.5-17.5); MEAN CORPUSCULAR HEMOGLOBIN 30.1 pg (27.0-33.0); MEAN CORPUSCULAR HGB CONC 30.7 g/dl (32.0-36.5); MEAN CORPUSCULAR VOLUME 97.9 fl (80.0-96.0); PLATELET COUNT, AUTOMATED 116 10^3/uL (150-450); RED BLOOD COUNT 3.29 10^6/uL (4.30-6.10); WHITE BLOOD COUNT 5.3 10^3/uL (4.0-10.0)
[2019-01-09 11:13] LABS: TOTAL PROTEIN 5.5 GM/DL (6.4-8.2)
--- NOTE | 2019-01-09 12:43 | REP ---
KUB ONE VIEW: HISTORY: Abdominal pain. A small amount of air is present in the intestine. There are no air-fluid levels or dilated loops of intestine. There is no pneumoperitoneum. Round radiopaque densities are present in the left lateral abdomen and pelvis. Degenerative change is present in the spine. IMPRESSION: Nonspecific bowel gas pattern. Electronically Signed by Eliud Nelson MD 01/09/2019 12:49 P
== END ==
LOC: SKLAB4 09:57
PROVIDERS: ATTEND Internal Medicine
DX: R10.9 Unspecified abdominal pain (principal)